=== PATIENT | female | born 1965 | race Caucasian/White ===

== ENCOUNTER 2020-08-22 09:29 | Emergency (ER) | payer OTHER, SELFPAY ==
--- NOTE | ~2020-08-22 | XR_ITS ---
EXAMINATION: XR HAND, RIGHT CLINICAL INFORMATION: Right hand injury. COMPARISON: None TECHNIQUE: PA, lateral, and oblique views of the right hand. FINDINGS: There is a comminuted fracture proximal phalanx mid segment fifth digit with mild soft tissue swelling. No additional fracture seen. Rest of the visualized right hand and right wrist appears unremarkable. XR/XR hand RT min 3V IMPRESSION: Comminuted fracture proximal phalanx mid segment fifth digit with mild soft tissue swelling. The fracture does not extend to articular epiphysis.
[2020-08-22 09:40] VITALS: BP 151/92; PULSE 82; RESP 18; TEMP 36.2; O2SAT 98; BMI 40.2
--- NOTE | 2020-08-22 09:58 | ED.EXTPRO ---
HPI - Extremity Problem General Chief complaint: Extremity Injury, Upper Stated complaint: FINGER INJURY Time Seen by Provider: 08/22/20 09:58 Source: patient Limitations: no limitations History of Present Illness HPI Narrative: Patient presents to the ER complaining of right 5th finger pain after a fall last night. Patient believes he may have been dislocated and she put it back in at that time. Positive bruising since. Pain is 8/10. Increases with palpation or range of motion. Symptoms are moderate. No other complaints at this time. Patient states she was walking down her back steps whenever slipped and she fell injuring that right left finger. Patient denies any other complaints of pain or injuries. Related Data Home Medications Medication Instructions Recorded Confirmed flu vac qs 2019(4 yr up)CD(PF) ml IM 04/09/20 04/09/20 sennosides 8.6 mg-docusate sodium tab PO 04/09/20 04/09/20 50 mg tablet Previous Rx's Medication Instructions Recorded aspirin 81 mg tablet,delayed 81 mg PO DAILY 90 Days #90 tab 02/19/20 release meclizine 25 mg tablet 25 mg PO TID PRN #60 tab 06/10/20 famotidine 20 mg tablet 20 mg PO DAILY #30 tab 06/17/20 albuterol sulfate 90 mcg/actuation 1 puff INHALATION QID PRN 30 Days 07/03/20 aerosol inhaler #18 g atorvastatin 80 mg tablet 80 mg PO DAILY 90 Days #90 tab 08/08/20 losartan 100 mg tablet 100 mg PO DAILY 90 Days #90 tab 08/08/20 trazodone 100 mg tablet 200 mg PO ONCE 90 Days #180 tab 08/08/20 tramadol 50 mg PO BID PRN #10 tab 08/22/20 Allergies Allergy/AdvReac Type Severity Reaction Status Date / Time bee pollen [BEE STINGS] Allergy Severe ANAPHYLAXIS Verified 08/22/20 09:43 spider venom [SPIDER BITES] Allergy Mild SWELLING Verified 08/22/20 09:43 acetaminophen [Vicodin] Allergy Unknown nausea and Verified 08/22/20 09:43 vomiting hydrocodone [Vicodin] Allergy Unknown nausea and Verified 08/22/20 09:43 vomiting Review of Systems Review of Systems: Constitutional : No Weight loss, No Fever, No Chills Cardiovascular : No Chest Pain, No SOB Respiratory : No Cough, No Sputum Gastrointestinal : No Nausea, No Vomiting Musculoskeletal : Right 5th finger pain Neuro : No Weakness, No Numbness, No Paresthesias, No Loss of Consciousness, No Dizziness, No Headache Psych : No Anxiety/Panic, No Depression, No SI/HI/AH/VH, No Social Issues, Heme/Lymph: No Bruising, No Bleeding,No Lymphadenopathy Endocrine : No Polyuria, No Polydipsia, No Temperature Intolerance [facility] Past Medical History Attestation statement: The following information was validated with the patient. Medical History Anxiety, generalized Asthma, moderate Chronic GERD Chronic vertigo Constipation by delayed colonic transit Difficulty sleeping Environmental allergies Hypertension, essential Lipid disorder Surgical History History of left oophorectomy History of shoulder surgery History of tooth extraction Family History Family History Father Myocardial infarction Mother CHF (congestive heart failure) History of back surgery Brother Acute myocardial infarction Sister Acute myocardial infarction Maternal Grandfather Colon cancer Maternal Grandmother Cancer Paternal Grandmother History of heart attack Cervical cancer Paternal Grandfather No problems noted. Maternal Uncle History of heart attack Sister No problems noted. Brother No problems noted. Brother No problems noted. Brother No problems noted. Social History Social History Alcohol intake: current Alcohol intake frequency: holidays/special occasions only Smoking Status: Former smoker Advance Directives: Yes Advance Directives Information Provided: Yes Advance Directives on File: No Patient : No Physical Exam Vital Signs: Vital Signs: Last Vital Signs Temp 97.1 F 08/22/20 09:40 Pulse 82 08/22/20 09:40 Resp 18 08/22/20 09:40 BP 151/92 H 08/22/20 09:40 Pulse Ox 98 08/22/20 09:40 Body Mass Index 40.2 vital signs have been reviewed as normal and appeared to be correct. Blood pressure normal. Heart rate normal. Respiration rate normal. Temperature normal. Oxygen saturation normal. Appearance: Alert. Oriented X3. No acute distress. Head: Normal external exam. Normocephalic. Atraumatic. No Rankin signs noted. No raccoon eyes noted Eyes: PERRLA. EOMI. ENT: Pharynx normal. Neck: Soft full range of motion, no JVD CVS: Heart regular rate and rhythm no murmurs and rubs Respiratory: Breath sounds are clear to auscultation bilaterally. No accessory muscle use noted. Back: No CVA tenderness. Full range of motion noted. Skin: Skin warm and dry. Normal skin color. Normal skin turgor. No rashes/lesions/lacerations noted. Extremities: Right hand base of the 5th positive ecchymoses positive swelling noted decreased range of motion secondary to pain diffuse tenderness capillary refill intact Neuro: Oriented X 3. No motor deficit. No sensory deficit. Reflexes normal. Course Course Course Narrative: X-ray of the right hand fracture dislocation of the right 5th finger. Splint applied to the right 5th digit follow-up with Hand as needed. MDM - Extremity (Nontraumatic) Imaging Data hand: Radiologist's impression: [address] [id number] ReportSigned Patient: Majo CheathamMR#: [id number]: 1965Acct:[id number]/Sex: 55 / FADM Date: 08/22/20Loc: HO.EDAttending Dr: Ordering Physician: Madyson Lake DO Date of Service: 08/22/20 Procedure(s): XR hand RT min 3V Accession Number(s): [id number] cc: Madyson Lake DO~ EXAMINATION: XR HAND, RIGHT CLINICAL INFORMATION: Right hand injury. COMPARISON: None TECHNIQUE: PA, lateral, and oblique views of the right hand. FINDINGS: There is a comminuted fracture proximal phalanx mid segment fifth digit with mild soft tissue swelling. No additional fracture seen. Rest of the visualized right hand and right wrist appears unremarkable. XR/XR hand RT min 3V IMPRESSION: Comminuted fracture proximal phalanx mid segment fifth digit with mild soft tissue swelling. The fracture does not extend to articular epiphysis. Dictated By:GEORGES CERVANTES MDSigned By:<Electronically signed by GEORGES CERVANTES MD in OV>08/22/20 1010 DD/ [id number]/TT: [employer] Assistant: [facility] [place] Discharge Plan Discharge Clinical Impression: Fracture of hand Patient Disposition: Home, Self-Care Instructions: Finger Fracture (ED) Additional Instructions: Splint rest ice elevation Follow-up with hand Prescriptions: New tramadol 50 mg tablet 50 mg PO BID PRN (Reason: pain (scale score 7-10)) Qty: 10 RF: 0 No Action aspirin 81 mg tablet,delayed release (DR/EC) 81 mg PO DAILY 90 Days Qty: 90 RF: 3 meclizine 25 mg tablet 25 mg PO TID PRN (Reason: dizziness) Qty: 60 RF: 0 famotidine 20 mg tablet 20 mg PO DAILY Qty: 30 RF: 2 albuterol sulfate 90 mcg/actuation HFA aerosol inhaler 1 puff inhalation QID PRN (Reason: for wheezing) 30 Days Qty: 18 RF: 0 losartan 100 mg tablet 100 mg PO DAILY 90 Days Qty: 90 RF: 0 atorvastatin 80 mg tablet 80 mg PO DAILY 90 Days Qty: 90 RF: 0 trazodone 100 mg tablet 200 mg PO ONCE 90 Days Qty: 180 RF: 1 sennosides-docusate sodium 8.6-50 mg tablet PO RF: 0 Flucelvax Quad [id number] (PF) 60 mcg (15 mcg x 4)/0.5 mL syringe IM RF: 0 Referrals: Leticia Braun MD [Physician] - 2 days
== END 2020-08-22 10:40 | disposition home or self-care (01) ==
PROVIDERS: Emergency Provider Emergency Medicine; PCP Internal Medicine
DX: S62.616A Displaced fracture of proximal phalanx of right little finger, initial encounter for closed fracture (principal); M79.641 Pain in right hand; W01.0XXA Fall on same level from slipping, tripping and stumbling without subsequent striking against object, initial encounter; Y93.9 Activity, unspecified; Y92.9 Unspecified place or not applicable; Y99.9 Unspecified external cause status; Z79.899 Other long term (current) drug therapy; Z79.82 Long term (current) use of aspirin; Z87.891 Personal history of nicotine dependence
CPT/HCPCS: 29130; 73130; 99283

== ENCOUNTER → 2020-08-26 14:06 | Outpatient (BNVA) | payer OTHER, SELFPAY | PROVIDERS: PCP Internal Medicine; Visit Provider Orthopaedic Surgery | DX: S62.616A Displaced fracture of proximal phalanx of right little finger, initial encounter for closed fracture (principal) | CPT/HCPCS: 99202 ==

== ENCOUNTER → 2020-08-28 09:45 | Outpatient (BNVA) | payer OTHER, SELFPAY | PROVIDERS: PCP Internal Medicine; Referring Provider Internal Medicine; Visit Provider Internal Medicine Cardiovascular Disease | DX: Z01.810 Encounter for preprocedural cardiovascular examination (principal); I25.10 Atherosclerotic heart disease of native coronary artery without angina pectoris; I10 Essential (primary) hypertension; R94.31 Abnormal electrocardiogram [ECG] [EKG] | CPT/HCPCS: 93005; 99202 ==

== ENCOUNTER 2020-08-29 06:02 | Day surgery (SDC) | payer OTHER, SELFPAY ==
--- NOTE | 2020-08-28 14:26 | HO.ANESPROP2 ---
Documented by User: Lexi Ferreira 08/28/20 14:27 HPI - Anesthesia Eval Consult details Narrative: 55yo F for RIght Finger Fx ORIF vs CRPP, small finger Cardiac cleared @ low to intermed risk PMFSH Active Problems Active Problems: All Active Problems (Updated 08/28/20 @ 10:41 by Ian Sr MD) Abnormal EKG (Acute) CAD (coronary artery disease) (Acute) Preoperative cardiovascular examination (Acute) Fracture of proximal phalanx of right little finger (Acute) Breast screening (Acute) Encounter for general adult medical examination with abnormal findings (Acute) Environmental allergies (Acute) Anxiety, generalized (Acute) Chronic GERD (Acute) Asthma, moderate (Acute) Constipation by delayed colonic transit (Acute) Lipid disorder (Acute) Chronic vertigo (Acute) Hypertension, essential (Acute) Difficulty sleeping (Acute) Environmental allergies (Acute) Past Medical History Medical History Anxiety, generalized Asthma, moderate CAD (coronary artery disease) Chronic GERD Chronic vertigo Constipation by delayed colonic transit Difficulty sleeping Environmental allergies Hypertension, essential Lipid disorder Family History Family History Father Myocardial infarction Mother CHF (congestive heart failure) History of back surgery Brother Acute myocardial infarction Sister Acute myocardial infarction Maternal Grandfather Colon cancer Maternal Grandmother Cancer Paternal Grandmother History of heart attack Cervical cancer Paternal Grandfather No problems noted. Maternal Uncle History of heart attack Sister No problems noted. Brother No problems noted. Brother No problems noted. Brother No problems noted. Surgical History Surgical History History of left oophorectomy History of shoulder surgery History of tooth extraction Stented coronary artery Social History Social History Alcohol intake: current Alcohol intake frequency: a few times a week Smoking Status: Former smoker Use of substances other than those prescribed or required for medical reasons: No Are you DNR?: No Advance Directives: No Advance Directives Information Provided: Yes Current occupation: left handed Gender identity: female Meds Allergies Allergy/AdvReac Type Severity Reaction Status Date / Time bee pollen [BEE STINGS] Allergy Severe ANAPHYLAXIS Verified 08/26/20 14:38 spider venom [SPIDER BITES] Allergy Mild SWELLING Verified 08/26/20 14:38 acetaminophen [Vicodin] Allergy Unknown nausea and Verified 08/26/20 14:38 vomiting hydrocodone [Vicodin] Allergy Unknown nausea and Verified 08/26/20 14:38 vomiting Home Medications Medication Instructions Recorded Confirmed Last Taken Type nifedipine 30 mg tablet,extended 30 mg PO DAILY 08/28/20 Unknown History release 24 hr venlafaxine 37.5 mg 37.5 mg PO DAILY 08/28/20 Unknown History capsule,extended release 24 hr Exam Exam Date and Time: August 28, 20201425 Narrative Narrative: EKG 08/28/20 shows normal sinus rhythm with left axis deviation with inferior Q-waves which could suggest prior inferior infarct and poor R-wave progression most likely due to lead placement Assessment and Plan Assessment Anesthesia Assessment: Chart Reviewed Documented by User: Katie Doty 08/29/20 08:21 [facility] Past Medical History Medical History Anxiety, generalized Asthma, moderate CAD (coronary artery disease) Chronic GERD Chronic vertigo Constipation by delayed colonic transit Difficulty sleeping Environmental allergies Hypertension, essential Lipid disorder Family History Family History Father Myocardial infarction Mother CHF (congestive heart failure) History of back surgery Brother Acute myocardial infarction Sister Acute myocardial infarction Maternal Grandfather Colon cancer Maternal Grandmother Cancer Paternal Grandmother History of heart attack Cervical cancer Paternal Grandfather No problems noted. Maternal Uncle History of heart attack Sister No problems noted. Brother No problems noted. Brother No problems noted. Brother No problems noted. Surgical History Surgical History History of left oophorectomy History of shoulder surgery History of tooth extraction Stented coronary artery Social History Social History Alcohol intake: current Alcohol intake frequency: a few times a week Smoking Status: Former smoker Use of substances other than those prescribed or required for medical reasons: No Are you DNR?: No Advance Directives: No Advance Directives Information Provided: Yes Current occupation: left handed Gender identity: female Meds Allergies Allergy/AdvReac Type Severity Reaction Status Date / Time bee pollen [BEE STINGS] Allergy Severe ANAPHYLAXIS Verified 08/26/20 14:38 spider venom [SPIDER BITES] Allergy Mild SWELLING Verified 08/26/20 14:38 acetaminophen [Vicodin] Allergy Unknown nausea and Verified 08/26/20 14:38 vomiting hydrocodone [Vicodin] Allergy Unknown nausea and Verified 08/26/20 14:38 vomiting Home Medications Medication Instructions Recorded Confirmed Last Taken Type nifedipine 30 mg tablet,extended 30 mg PO DAILY 08/28/20 Unknown History release 24 hr venlafaxine 37.5 mg 37.5 mg PO DAILY 08/28/20 Unknown History capsule,extended release 24 hr Exam Airway Mallampati Class: III TM Dist: >3cm Neck ROM: Limited Denture: Upper and Lower Assessment and Plan Assessment Anesthesia Assessment: Anesthesia Plan Discussed and Chart Reviewed Final Anesthetic Review NPO: Yes ASA Class: III Final Preanesthetic Review: No Changes in Pt Med Stat, Meds/Allgs Chart Reviewed, Consent Obtained/Reviewed and Anes Risks/Benef Reviewed Patient Risk: Intermediate Procedure Risk: Low Assessment/Block/Sedation in SS: Assess/Block/Sedation-SS Anesthetic Plan Anesthetic Plan: GA Disposition: Standard PACU
--- NOTE | ~2020-08-29 | FL_ITS ---
EXAMINATION: XR FLUOROSCOPY WITH IMAGES CLINICAL INFORMATION: Right fifth finger fracture COMPARISON: Previous right hand x-ray 08/22/2020 TECHNIQUE: Fluoroscopy performed by Edy. Fluoroscopy time: 0.5 minutes DAP: [id number] Images: 4 FINDINGS: Images demonstrate 2 K wires transfixing the fracture of the proximal phalanx of the fifth finger with improved alignment FL/FL guidance in OR IMPRESSION: ORIF of right fifth finger proximal phalanx fracture.
[2020-08-29 06:18] VITALS: BP 186/81; PULSE 62; RESP 18; TEMP 36.2; O2SAT 96; BMI 42.4
[2020-08-29] MEDS: Lactated Ringers 1,000 ML 100 ML IVCONT (06:33)
--- NOTE | 2020-08-29 08:05 | MHC.SHP ---
Pre-Procedural Eval Section A The patient is an INPATIENT: No The History & Physical has been completed within 30 days and I have reviewed it.: Yes Section B Chief Complaint: small finger fx Allergies: Allergies Allergy/AdvReac Type Severity Reaction Status Date / Time bee pollen [BEE STINGS] Allergy Severe ANAPHYLAXIS Verified 08/26/20 14:38 spider venom [SPIDER BITES] Allergy Mild SWELLING Verified 08/26/20 14:38 acetaminophen [Vicodin] Allergy Unknown nausea and Verified 08/26/20 14:38 vomiting hydrocodone [Vicodin] Allergy Unknown nausea and Verified 08/26/20 14:38 vomiting Plan I have reviewed the history and physical and performed a pertinent physical examination on my patient. No changes have occurred unless specified.
--- NOTE | 2020-08-29 08:06 | W.PM.OPN ---
Operative Note Operative Note Date of Service: 08/29/20 Narrative: Operative Note Narrative: Preop diagnosis: 1. Right small finger proximal phalanx fracture Postop diagnosis: Same Procedure: 1. Right small finger proximal phalanx fracture closed reduction percutaneous pinning 2. Ulnar nerve block Surgeon: Leticia Braun MD Anesthesia: General Findings: finger fracture Implants: 0.045 K-wires times 2 Tourniquet time: None EBL: Minimal Specimen: None Drains: None Complications: None Disposition: Brought to the recovery room in stable condition Plan: Follow-up in 10-14 days for a wound check, postop radiographs and for placement in a short-arm finger spica cast or splint Anticipate K-wire removal in 4 weeks based on interval bony healing Educate the patient that full fracture healing anticipated in approximately 8-12 weeks. Indications: The patient is 55 years old with right small finger proximal phalanx fracture . The risks and benefits of operative treatment, including but not limited to risk of damage to blood vessels, nerves, tendons, infection, recurrence, delayed or nonunion of fracture, persistent pain or numbness, incomplete resolution of preoperative symptoms, or need for further surgery were discussed with the patient and they wished to proceed with surgery. Procedure: Once consent was obtained patient was brought back to the operating suite and placed in the operating table in a supine position. Perioperative antibiotics and general anesthesia was administered by the anesthesia team. A tourniquet was applied to the proximal aspect of the right upper extremity and the limb was prepped and draped in a standard surgical fashion. Tourniquet was not inflated during the case. The FluoroScan was used during the case to assist with our fracture reduction and placement of all implants. A closed reduction was performed on the patient's right small finger proximal phalanx fracture. I placed a single 0.045 K-wire through the radial base of the proximal phalanx. This was then advanced cyst distally across the fracture site to the distal ulnar cortex. A 2nd 0.045 K-wire was passed through the ulnar base of the proximal phalanx and was also advanced distally across the fracture site to the distal aspect of the proximal phalanx. Fracture alignment was assessed for both angular and rotational malalignment. Once satisfied with our fracture reduction and implant placement, the K-wires were bent and cut short and pin caps applied. Final fluoroscopic images were then obtained. The wounds were copiously irrigated with normal saline. An ulnar nerve block was then performed by infiltrating about the ulnar nerve at the wrist with some 1% lidocaine with epinephrine for postop pain control. A Sterile dressing and short volar splint extending from the forearm was applied. The patient appears to have tolerated the procedure well and with no complications. All digits were well vascularized at the conclusion of the case.
[2020-08-29 09:03] VITALS: BP 158/70; PULSE 62; RESP 14; TEMP 36.2; O2SAT 94
[2020-08-29] MEDS: oxyCODONE HCl Immed Release 5 MG TABLET PO (09:05)
[2020-08-29 09:08] VITALS: BP 130/66; PULSE 64; RESP 16; O2SAT 96
[2020-08-29 09:13] VITALS: BP 149/74; PULSE 61; RESP 16; O2SAT 99
[2020-08-29 09:17] VITALS: BP 163/73; PULSE 58; RESP 16; O2SAT 97
[2020-08-29 09:32] VITALS: BP 143/71; PULSE 58; RESP 16; O2SAT 96
== END 2020-08-29 10:09 | disposition home or self-care (01) ==
PROVIDERS: PCP Internal Medicine; Visit Provider Orthopaedic Surgery
PROC: (CPT 26725; principal; 2020-08-29 07:30)
DX: S62.616A Displaced fracture of proximal phalanx of right little finger, initial encounter for closed fracture (principal); W10.8XXA Fall (on) (from) other stairs and steps, initial encounter; Y93.9 Activity, unspecified; Y92.009 Unspecified place in unspecified non-institutional (private) residence as the place of occurrence of the external cause; Y99.8 Other external cause status; I10 Essential (primary) hypertension; J45.909 Unspecified asthma, uncomplicated; R42 Dizziness and giddiness; Z88.8 Allergy status to other drugs, medicaments and biological substances; Z79.82 Long term (current) use of aspirin
CPT/HCPCS: 26725; J0690; J1100; J2405; J3010

== ENCOUNTER 2020-09-10 08:47 | Outpatient (REF) | payer OTHER, SELFPAY ==
--- NOTE | ~2020-09-10 | XR_ITS ---
EXAMINATION: XR HAND, RIGHT CLINICAL INFORMATION: Pain. COMPARISON: Right hand radiographs dated 08/22/2020. TECHNIQUE: PA, lateral, and oblique views of the right hand. FINDINGS: Orthopedic wires across a 5th proximal phalangeal fracture in anatomic alignment. No hardware fracture. No periarticular lucency to suggest loosening or infection. Minimal new bone/callus formation at the fracture. XR/XR hand RT min 3V IMPRESSION: Orthopedic wires across a nondisplaced 5th proximal phalangeal fracture in anatomic alignment with minimal new bone/callus formation.
== END 2020-09-10 08:48 | disposition home or self-care (01) ==
LOC: HO.HOSX 08:47
PROVIDERS: Visit Provider Orthopaedic Surgery
DX: S62.616D Displaced fracture of proximal phalanx of right little finger, subsequent encounter for fracture with routine healing (principal)
CPT/HCPCS: 29075; 73130; 99212

== ENCOUNTER 2020-09-11 09:54 | Outpatient (REF) | payer OTHER, SELFPAY ==
[2020-09-11 11:22] LABS: MANUAL DIFF FLAG NO
[2020-09-11 11:34] LABS: Basophils Percent Auto 0.3 % (0-2); Eosinophils Absolute Auto 0.1 X10*3/uL (0.0-0.4); Eosinophils Percent Auto 0.9 % (0-4); Hematocrit 40.2 % (37-47); Hemoglobin 13.1 g/dl (12.0-16.0); Imm Gran Abs Auto 0.07 X10*3/uL (0.00-0.03); Imm Gran Pct Auto 0.6 % (0.0-0.4); Lymphocytes Absolute Auto 1.6 X10*3/uL (1.2-4.9); Lymphocytes Percent Auto 13.4 % (20-40); Mean Corpuscular HGB Conc 32.6 g/dl (31.0-35.0); Mean Corpuscular Hemoglobin 29.4 pg (27.0-33.0); Mean Corpuscular Volume 90.1 fL (80-98); Mean Platelet Volume 10.2 fL (9.4-12.3); Monocytes Absolute Auto 0.9 X10*3/uL (0.1-1.2); Neutrophils Percent Auto 76.8 % (45-73); Platelet Count 287 X10*3/uL (160-400); Red Blood Count 4.46 X10*6/uL (4.20-5.50); Red Cell Distribution Width 15.1 % (11.0-16.0); White Blood Count 11.7 X10*3/uL (4.8-10.8)
[2020-09-11 11:53] LABS: Alanine Aminotransferase 25 U/L (0-31); Albumin Level 4.2 g/dL (3.5-5.0); Alkaline Phosphatase 135 U/L (39-117); Anion Gap 16 (12-20); Aspartate Amino Transferase 17 U/L (5-31); Bilirubin Direct 0.5 mg/dL (0.0-0.5); Bilirubin Total 1.1 mg/dL (0.0-1.0); Blood Urea Nitrogen 15 mg/dL (9-16); Calcium 9.2 mg/dL (8.4-10.2); Carbon Dioxide 24 mmol/L (22-29); Chloride 104 mmol/L (96-108); Estimated Glomerular Filt Rate > 60; Glucose Random 95 mg/dL (60-115); Potassium 4.1 mmol/L (3.3-5.1); Sodium 140 mmol/L (135-145)
[2020-09-12 04:27] LABS: LDL Cholesterol Direct 55 mg/dL (<100)
== END 2020-09-11 09:55 | disposition home or self-care (01) ==
LOC: HO.HMGCLDS 09:54
PROVIDERS: PCP Internal Medicine; Visit Provider Internal Medicine
DX: E78.9 Disorder of lipoprotein metabolism, unspecified (principal); F41.1 Generalized anxiety disorder; I10 Essential (primary) hypertension; J45.909 Unspecified asthma, uncomplicated; K21.9 Gastro-esophageal reflux disease without esophagitis; Z91.09 Other allergy status, other than to drugs and biological substances
CPT/HCPCS: 36415; 80048; 80076; 83721; 85025

== ENCOUNTER 2020-09-30 10:12 | Outpatient (REF) | payer OTHER, SELFPAY ==
--- NOTE | ~2020-09-30 | XR_ITS ---
EXAMINATION: XR HAND, RIGHT CLINICAL INFORMATION: Pain COMPARISON: Previous x-ray 09/10/2020 TECHNIQUE: PA, lateral, and oblique views of the right hand. FINDINGS: There are 2 pins or K wires across the fracture of the proximal phalanx of the fifth finger that appear unchanged. Alignment is unchanged. Fracture line is still seen and appears unchanged. XR/XR hand RT min 3V IMPRESSION: ORIF of right fifth proximal phalanx fracture. No change compared to August 2020 exam.
== END 2020-09-30 10:13 | disposition home or self-care (01) ==
LOC: HO.HOSX 10:12
PROVIDERS: Visit Provider Orthopaedic Surgery
DX: S62.616D Displaced fracture of proximal phalanx of right little finger, subsequent encounter for fracture with routine healing (principal); M79.641 Pain in right hand
CPT/HCPCS: 73130; 99212

== ENCOUNTER → 2020-10-28 13:39 | Outpatient (BNVA) | payer OTHER, SELFPAY | PROVIDERS: PCP Internal Medicine; Visit Provider Orthopaedic Surgery | DX: S62.616D Displaced fracture of proximal phalanx of right little finger, subsequent encounter for fracture with routine healing (principal) | CPT/HCPCS: 99212 ==

== ENCOUNTER 2021-03-05 09:15 | Outpatient (REF) | payer OTHER, SELFPAY ==
[2021-03-05 11:24] LABS: MANUAL DIFF FLAG NO
[2021-03-05 11:39] LABS: Basophils Percent Auto 0.4 % (0-2); Eosinophils Absolute Auto 0.2 X10*3/uL (0.0-0.4); Eosinophils Percent Auto 2.2 % (0-4); Hematocrit 41.5 % (37.0-47.0); Hemoglobin 13.6 g/dl (12.0-16.0); Imm Gran Abs Auto 0.03 X10*3/uL (0.00-0.03); Imm Gran Pct Auto 0.4 % (0.0-0.4); Lymphocytes Absolute Auto 1.7 X10*3/uL (1.2-4.9); Lymphocytes Percent Auto 23.3 % (20-40); Mean Corpuscular HGB Conc 32.8 g/dl (31.0-35.0); Mean Corpuscular Hemoglobin 28.4 pg (27.0-33.0); Mean Corpuscular Volume 86.6 fL (80.0-98.0); Monocytes Absolute Auto 0.5 X10*3/uL (0.1-1.2); Monocytes Percent Auto 6.7 % (2-11); Neutrophils Absolute Auto 4.9 x10*3/uL (2.0-8.3); Platelet Count 301 X10*3/uL (160-400); Red Blood Count 4.79 X10*6/uL (4.20-5.50); Red Cell Distribution Width 15.6 % (11.0-16.0); White Blood Count 7.4 X10*3/uL (4.8-10.8)
[2021-03-05 12:10] LABS: Alanine Aminotransferase 25 U/L (0-31); Albumin Level 4.3 g/dL (3.5-5.0); Alkaline Phosphatase 122 U/L (39-117); Anion Gap 14 (12-20); Aspartate Amino Transferase 21 U/L (5-31); Bilirubin Total 0.7 mg/dL (0.0-1.0); Blood Urea Nitrogen 11 mg/dL (9-16); Calcium 9.3 mg/dL (8.4-10.2); Carbon Dioxide 26 mmol/L (22-29); Chloride 102 mmol/L (96-108); Estimated Glomerular Filt Rate > 60; Glucose Random 86 mg/dL (60-115); Potassium 3.9 mmol/L (3.3-5.1); Sodium 138 mmol/L (135-145); Total Protein 7.1 g/dL (6.5-8.0)
[2021-03-05 12:15] LABS: TSH reflex Free T4 1.71 uIU/mL (0.32-4.0)
[2021-03-07 13:31] LABS: LDL Cholesterol Direct 63 mg/dL (<100)
== END 2021-03-05 09:16 | disposition home or self-care (01) ==
LOC: HO.HMGCLDS 09:15
PROVIDERS: PCP Internal Medicine; Visit Provider Internal Medicine
DX: I10 Essential (primary) hypertension (principal)
CPT/HCPCS: 36415; 80053; 83721; 84443; 85025

== ENCOUNTER 2022-05-27 11:36 | Outpatient (REF) | payer OTHER, SELFPAY ==
[2022-05-27 13:55] LABS: MANUAL DIFF FLAG NO
[2022-05-27 14:02] LABS: Basophils Absolute Auto 0.1 X10*3/uL (0.0-0.2); Basophils Percent Auto 0.5 % (0-2); Eosinophils Absolute Auto 0.1 X10*3/uL (0.0-0.4); Eosinophils Percent Auto 1.1 % (0-4); Hematocrit 46.3 % (37.0-47.0); Hemoglobin 15.6 g/dl (12.0-16.0); Imm Gran Abs Auto 0.07 X10*3/uL (0.00-0.03); Imm Gran Pct Auto 0.8 % (0.0-0.4); Lymphocytes Absolute Auto 1.5 X10*3/uL (1.2-4.9); Lymphocytes Percent Auto 16.3 % (20-40); Mean Corpuscular HGB Conc 33.7 g/dl (31.0-35.0); Mean Corpuscular Hemoglobin 30.2 pg (27.0-33.0); Mean Corpuscular Volume 89.7 fL (80.0-98.0); Mean Platelet Volume 10.2 fL (9.4-12.3); Monocytes Absolute Auto 0.8 X10*3/uL (0.1-1.2); Monocytes Percent Auto 8.1 % (2-11); Neutrophils Absolute Auto 6.8 x10*3/uL (2.0-8.3); Neutrophils Percent Auto 73.2 % (45-73); Platelet Count 245 X10*3/uL (160-400); Red Blood Count 5.16 X10*6/uL (4.20-5.50); Red Cell Distribution Width 14.5 % (11.0-16.0); White Blood Count 9.3 X10*3/uL (4.8-10.8)
[2022-05-27 14:40] LABS: Alanine Aminotransferase 38 U/L (0-31); Albumin Level 4.3 g/dL (3.5-5.0); Alkaline Phosphatase 106 U/L (39-117); Anion Gap 15 (12-20); Aspartate Amino Transferase 23 U/L (5-31); Bilirubin Total 0.8 mg/dL (0.0-1.0); Blood Urea Nitrogen 12 mg/dL (9-16); Calcium 9.6 mg/dL (8.4-10.2); Carbon Dioxide 27 mmol/L (22-29); Chloride 105 mmol/L (96-108); Estimated Glomerular Filt Rate > 60; Glucose Random 92 mg/dL (60-115); Potassium 3.8 mmol/L (3.3-5.1); Sodium 143 mmol/L (135-145); Total Protein 7.1 g/dL (6.5-8.0)
[2022-05-28 05:53] LABS: LDL Cholesterol Direct 121 mg/dL (<100)
== END 2022-05-27 11:37 | disposition home or self-care (01) ==
LOC: HO.HMGCLDS 11:36
PROVIDERS: PCP Internal Medicine; Visit Provider Internal Medicine
DX: E78.9 Disorder of lipoprotein metabolism, unspecified (principal); G47.9 Sleep disorder, unspecified; I10 Essential (primary) hypertension; J45.909 Unspecified asthma, uncomplicated; K21.9 Gastro-esophageal reflux disease without esophagitis; Z91.09 Other allergy status, other than to drugs and biological substances
CPT/HCPCS: 36415; 80053; 83721; 84443; 85025

== ENCOUNTER 2022-07-16 09:17 | Emergency (ER) | payer OTHER, SELFPAY ==
[2022-07-16 09:30] VITALS: BP 187/80; PULSE 73; RESP 17; TEMP 35.8; O2SAT 98; BMI 34.7
--- NOTE | 2022-07-16 09:38 | ED_ITS ---
HPI - Extremity Problem General Chief complaint: Extremity Injury, Lower Stated complaint: toe injury Time Seen by Provider: 07/16/22 09:37 Source: patient Mode of arrival: ambulatory Limitations: no limitations History of Present Illness HPI Narrative: 57-year-old female with history of uncontrolled hypertension, CAD, anxiety, GERD, vertigo who presents to the ER for evaluation of left great toe pain, swelling and drainage of pus. She reports about 2 weeks ago she accidentally injured the toe, kicking a piece of furniture. She states that toenail bruised up at the base of the toe. Few days ago she noticed that the area started to get more red and swollen. When she pushed on it green pus came out. She denies any expansion of the redness. No fevers or chills. She is not diabetic. MD Complaint: extremity pain Onset (ago): day(s) Pain Consistency: constant Location: left and lower extremity Severity scale (1-10): 7 Quality: aching Radiation: none Relieving factors: movement Exacerbating factors: palpation Associated symptoms: denies other symptoms Related Data Previous Rx's Medication Instructions Recorded albuterol sulfate 90 mcg/actuation 1 puff inhalation QID PRN for 11/12/21 aerosol inhaler wheezing 30 days #18 grams epinephrine 0.3 mg/0.3 mL 0.3 mg (0.3 mL) IM Q10M PRN 12/23/21 injection, auto-injector (EpiPen anaphylaxis 90 days #2 ea 2-Keith) Ventolin HFA 90 mcg/actuation 1 inh inhalation QID PRN shortness 02/02/22 aerosol inhaler (albuterol sulfate) of breath or wheezing 30 days #8 grams atorvastatin 80 mg tablet 80 mg PO DAILY 90 days #90 tabs 06/01/22 famotidine 20 mg tablet 20 mg PO DAILY #90 tabs 06/01/22 losartan 100 mg tablet 100 mg PO DAILY 90 days #90 tabs 06/01/22 nifedipine 30 mg tablet,extended 30 mg PO DAILY 90 days #90 tabs 06/01/22 release 24 hr sennosides 8.6 mg-docusate sodium 1 tab-cap PO BEDTIME 90 days #90 06/01/22 50 mg tablet tabs trazodone 100 mg tablet 200 mg PO ONCE 90 days #180 tabs 06/01/22 venlafaxine 37.5 mg 37.5 mg PO DAILY 90 days #90 caps 06/01/22 capsule,extended release 24 hr aspirin 81 mg tablet,delayed 81 mg PO DAILY 90 days #90 tabs 06/16/22 release budesonide-formoterol HFA 160 2 puff inhalation BID 30 days 06/26/22 mcg-4.5 mcg/actuation aerosol #10.2 grams inhaler (Symbicort) meclizine 25 mg tablet 25 mg PO TID PRN dizziness #60 tabs 07/14/22 amoxicillin 875 mg-potassium 1 tab PO BID #14 tabs 07/16/22 clavulanate 125 mg tablet Allergies Allergy/AdvReac Type Severity Reaction Status Date / Time bee pollen [BEE STINGS] Allergy Severe ANAPHYLAXIS Verified 05/27/22 10:57 spider venom [SPIDER BITES] Allergy Mild SWELLING Verified 05/27/22 10:57 acetaminophen [Vicodin] Allergy Unknown nausea and Verified 05/27/22 10:57 vomiting hydrocodone [Vicodin] Allergy Unknown nausea and Verified 05/27/22 10:57 vomiting Review of Systems Review of Systems: Yes all other systems are reviewed and are negative [facility] Past Medical History Medical History Anxiety, generalized Asthma, moderate CAD (coronary artery disease) Chronic GERD Chronic vertigo Constipation by delayed colonic transit Difficulty sleeping Environmental allergies Hypertension, essential Lipid disorder Surgical History History of left oophorectomy History of shoulder surgery History of tooth extraction Stented coronary artery Family History Family History Father Myocardial infarction Mother CHF (congestive heart failure) History of back surgery Brother Acute myocardial infarction Sister Acute myocardial infarction Maternal Grandfather Colon cancer Maternal Grandmother Cancer Paternal Grandmother History of heart attack Cervical cancer Paternal Grandfather No problems noted. Maternal Uncle History of heart attack Sister No problems noted. Brother No problems noted. Brother No problems noted. Brother No problems noted. Social History Social History Housing: Apartment Alcohol intake: current Alcohol intake frequency: a few times a week Patient Tobacco Use Status: Former Tobacco user Quit Date: 16 years ago Advance Directives: No Current occupational status: employed Current occupation: left handed Gender identity: Female Cognitive needs: No Hearing needs: No Vision needs: No Physical Exam Vital Signs: Vital Signs: Last Vital Signs Temp 96.5 F L 07/16/22 09:30 Pulse 73 07/16/22 09:30 Resp 17 07/16/22 09:30 BP 174/86 H 07/16/22 10:15 Pulse Ox 98 07/16/22 09:30 O2 Del Method Room Air 07/16/22 09:30 BMI result Body Mass Index 34.7 Appearance: Alert. Oriented X3. No acute distress. HEENT: normal inspection CVS: Normal heart rate and rhythm. Pulses normal. Respiratory: No respiratory distress. Skin: Skin warm and dry. Normal skin color. Normal skin turgor. No rashes. Extremities: left great toe nail with ecchymosis at the base, nail bed separation with expression of purulent material. normal cap refill. FROM. Neuro: Oriented X 3. No motor deficit. No sensory deficit. Course Reevaluation(s) Reevaluation #1: toe soaked in saline and H2O2, small amount of purulent material expressed DSD applied will d/c with abx Medical Decision Making Medical Decision Making MDM Narrative: 57-year-old female presents to the ER for evaluation of left great toe pain, redness, drainage of pus that started couple of days ago after mild trauma 2 weeks ago. On examination the nail is from the nail bed with expression of purulent material. The toe was soaked and cleansed copiously with saline. She will require oral antibiotics an ongoing local wound care. She will most likely lose the toenail. Patient counseled on return precautions. She is stable for discharge home with oral antibiotics. Patient found to be hypertensive 170-180 here. She has no headache, chest pain, vision changes. She has a history of uncontrolled hypertension. She reports medication compliance. She will monitor her blood pressure at home and follow- up with her PCP. Stable for discharge home Differential Diagnosis Differential Diagnoses: The differential diagnosis associated with the present ation includes paronychia, broken toe, cellulitis, abscess, ulcer External Record Review External record reviewed: Outpatient record and Prior outpatient labs Tests considered The following testing was considered but not selected: x-ray considered Prescription Management I considered prescription management with: Antibiotic Chronic Conditions Patient?s care impacted by: Hypertension Critical Care Time Critical Care Time Critical Care Time: No Discharge Plan Discharge Clinical Impression: Paronychia of great toe of left foot Patient Disposition: Home, Self-Care Instructions: Paronychia (ED) Additional Instructions: Take the prescribed antibiotic as directed, complete the entire course and do not miss any doses. Use warm soaks 2 or 3 times per day with soapy water. Keep clean and covered. You can use bacitracin or Neosporin to the area as well. Allow open to air for several hours per day. Your blood pressure was found to be elevated today. Monitor blood pressure at home and keep her recording for your doctor. Follow-up with your doctor. If you develop new or worsening symptoms call 911 or come back to the ER for further evaluation. Prescriptions: New amoxicillin-pot clavulanate 875-125 mg tablet 1 tab PO BID Qty: 14 0RF No Action albuterol sulfate 90 mcg/actuation HFA aerosol inhaler 1 puff inhalation QID PRN (Reason: for wheezing) 30 Days Qty: 18 2RF epinephrine [EpiPen 2-Keith] 0.3 mg/0.3 mL auto-injector 0.3 mg IM Q10M PRN (Reason: anaphylaxis) 90 Days Qty: 2 0RF Rx Instructions: for 2 doses albuterol sulfate [Ventolin HFA] 90 mcg/actuation HFA aerosol inhaler 1 inh inhalation QID PRN (Reason: shortness of breath or wheezing) 30 Days Qty: 8 2RF nifedipine 30 mg tablet extended release 24hr 30 mg PO DAILY 90 Days Qty: 90 0RF venlafaxine 37.5 mg capsule,extended release 24hr 37.5 mg PO DAILY 90 Days Qty: 90 0RF atorvastatin 80 mg tablet 80 mg PO DAILY 90 Days Qty: 90 0RF famotidine 20 mg tablet 20 mg PO DAILY Qty: 90 0RF sennosides-docusate sodium 8.6-50 mg tablet 1 tab-cap PO BEDTIME 90 Days Qty: 90 3RF trazodone 100 mg tablet 200 mg PO ONCE 90 Days Qty: 180 0RF losartan 100 mg tablet 100 mg PO DAILY 90 Days Qty: 90 0RF aspirin 81 mg tablet,delayed release (DR/EC) 81 mg PO DAILY 90 Days Qty: 90 3RF budesonide-formoterol [Symbicort] 160-4.5 mcg/actuation HFA aerosol inhaler 2 puff inhalation BID 30 Days Qty: 10.2 2RF meclizine 25 mg tablet 25 mg PO TID PRN (Reason: dizziness) Qty: 60 2RF Referrals: Dee Joseph MD [Primary Care Provider] - Stand Alone Forms: Work/School Release
[2022-07-16 10:15] VITALS: BP 174/86
== END 2022-07-16 10:54 | disposition home or self-care (01) ==
PROVIDERS: Emergency Provider Emergency Medicine; PCP Internal Medicine
DX: L03.032 Cellulitis of left toe (principal); Z79.899 Other long term (current) drug therapy
CPT/HCPCS: 10160; 99282; 99283

== ENCOUNTER 2023-02-12 12:55 | Outpatient (AMB) | payer OTHER, SELFPAY ==
--- NOTE | 2023-02-12 13:14 | A.OFFPC_ITS ---
Vital Signs 3 02/12/23 13:15 Height 5 ft 2 in Weight 198 lb BMI 36.2 BP 124/72 Blood Pressure Location Lt brachial Position Sitting Pulse 79 Pulse Source Pulse Oximeter Pulse Oximetry (%) 94 Oxygen Delivery Method Room Air Intake Visit Reasons: F/u Asthma, moderate Intake Note: Pt is here today for a follow up visit. Pt states that she has been having R shoulder pain since yesterday. Allergies bee pollen [BEE STINGS] Allergy (Severe, Verified 02/12/23 13:16) ANAPHYLAXIS spider venom [SPIDER BITES] Allergy (Mild, Verified 02/12/23 13:16) SWELLING acetaminophen [Vicodin] Allergy (Unknown, Verified 02/12/23 13:16) nausea and vomiting hydrocodone [Vicodin] Allergy (Unknown, Verified 02/12/23 13:16) nausea and vomiting Medication List - Last Reconciled 02/12/23 by Dee Joseph MD albuterol sulfate 90 mcg/actuation 1 puff inhalation QID PRN 30 days aspirin 81 mg PO DAILY 90 days atorvastatin 80 mg PO DAILY 90 days budesonide-formoterol 160-4.5 mcg/actuation (Symbicort) 2 puffs inhalation BID 30 days epinephrine (EpiPen 2-Keith) 0.3 mg (0.3 mL) IM Q10M PRN 90 days famotidine 20 mg PO DAILY losartan 100 mg PO DAILY 90 days meclizine 25 mg PO TID PRN nifedipine ER 30 mg PO DAILY 90 days sennosides-docusate sodium 8.6-50 mg 1 tab-cap PO BEDTIME 90 days trazodone 200 mg (2 x 100 mg) PO ONCE 90 days venlafaxine ER 37.5 mg PO DAILY 90 days Ventolin HFA 90 mcg/actuation (albuterol sulfate) 1 inh inhalation QID PRN 30 days NS Tobacco use date assessed: 02/12/23 Dental Screening Dental Screen Date: 02/12/23 Did you have a dental visit in the last 12 months?: No Did you have a dental problem in the last 6 months where you did not have access to dental care?: No Was dental information given to patient?: Patient declined HPI F/u Asthma, moderate 2 HPI0 Details Patient is a 57-year-old female came in today for follow-up appointment Patient has habit of missing her appointments Last time seen was June of this year She is complaining of pain in her right shoulder patient says that she woke up with this pain this morning I have ordered x-ray of her shoulder, she is tender over rotator cuff I have sent prednisone for 5 days we will book a telemedicine visit on to see how she is doing We discussed regular follow-up appointment again, it is highly important that we see her periodically in order to continue our care. She is also due for labs. Hypertension: she is taking nifedipine 30 mg daily and losartan 100 mg, blood pressure is well controlled patient is tolerating medications Asthma is stable with Symbicort maintenance inhaler Lipid disorder: Continue atorvastatin 80 mg patient is tolerating medication no side effects. GERD is stable with famotidine 20 mg Depression: Continue venlafaxine 37.5 mg she is also taking trazodone at night to sleep. BMI is elevated at 36.2 patient is trying to lose weight She has started working in [employer] but tells me that she is not drinking any alcohol Follow-up 3 months [facility] Medical History CAD (coronary artery disease) Environmental allergies Anxiety, generalized Chronic GERD Asthma, moderate Constipation by delayed colonic transit Lipid disorder Chronic vertigo Hypertension, essential Difficulty sleeping Surgical History Stented coronary artery History of shoulder surgery History of tooth extraction History of left oophorectomy Family History Father Myocardial infarction Mother CHF (congestive heart failure) History of back surgery Brother Acute myocardial infarction Sister Acute myocardial infarction Maternal Grandfather Colon cancer Maternal Grandmother Cancer Paternal Grandmother History of heart attack Cervical cancer Paternal Grandfather No problems noted. Maternal Uncle History of heart attack Sister No problems noted. Brother No problems noted. Brother No problems noted. Brother No problems noted. Social History Housing: Apartment Alcohol intake: current Alcohol intake frequency: a few times a week Patient Tobacco Use Status: Former Tobacco user Quit Date: 16 years ago Current occupational status: employed Current occupation: left handed Gender identity: Female Cognitive needs: No Hearing needs: No Vision needs: No Questionnaire PHQ-9 Over the last 2 weeks, how often have you been bothered by any of the following problems? 1. Little interest or pleasure in doing things: not at all 2. Feeling down, depressed, or hopeless: not at all 3. Trouble falling or staying asleep, or sleeping too much: not at all 4. Feeling tired or having little energy: not at all 5. Poor appetite or overeating: not at all 6. Feeling bad about yourself - or that you are a failure or have let yourself or your family down: not at all 7. Trouble concentrating on things, such as reading the newspaper or watching television: not at all 8. Moving or speaking so slowly that other people could have noticed. Or the opposite - being so fidgety or restless that you have been moving around a lot more than usual: not at all 9. Thoughts that you would be better off or of hurting yourself in some way: not at all Total score: 0 Depression Screening Interpretation: Negative Depression Screening Done: Yes 07906 - PHQ-9 Billing: Yes Source: Developed by Drs. Rylan Carroll, Amada Callejas, Get Johnston and colleagues, with an educational javier from [employer] - [place]. Thrive Questionnaire Date Thrive assessed: 02/12/23 I am a: Patient What is your living situation today?: I have a steady place to live Within the past 12 months, did the food you bought not last and you didn't have the money to get more?: Never true Within the past 12 months, did you worry whether your food would run out before you got money to buy more?: Never true Do you have trouble paying for medicines?: No Do you have trouble getting transportation to medical appointments?: No Do you have trouble paying your heating and electricity bill?: No Do you have trouble taking care of your child, family member or friend?: No Do you have trouble with day-to-day activities such as bathing, preparing meals, shopping, managing finances, etc.?: No Are you currently unemployed and looking for a job?: No Are you interested in more education?: No Please select the resources that you would like help with: None Currently or been in a relationship where the following occur: no concerns reported DENA-7 AMB Questionnaire DENA-7 Date DENA - 7 assessed: 02/12/23 Feeling nervous, anxious, or on edge: 0 = Not at all Not being able to stop or control worryin = Not at all Worrying too much about different things: 0 = Not at all Trouble relaxin = Not at all Being so restless that it is hard to sit still: 0 = Not at all Becoming easily annoyed or irritable: 0 = Not at all Feeling afraid as if something awful might happen: 0 = Not at all Total DENA-7 score (0-4 normal; 5-9 mild; 10-14 moderate; 15-21 severe): 0 Source: Developed by Drs. Rylan Carroll, Amada Callejas, Get Johnston and colleagues, with an educational javier from [employer] - [place]. DENA-7 Assessment Billing DENA-7 Assessment Tool: DENA-7 Assessment 44154 Review of Systems Const Denies chills and Denies fever(s) ENT Denies epistaxis and Denies nasal discharge Card Denies chest pain Resp Denies chest congestion, Denies cough and Denies hemoptysis GI Denies diarrhea and Denies nausea Skin/Breast Denies rash Neuro Reports no additional complaints Psych Reports no additional complaints Endo Reports no additional complaints Physical exam (Primary Care) Vital Signs: Last Vital Signs Pulse 79 02/12/23 13:15 BP 124/72 02/12/23 13:15 Pulse Ox 94 02/12/23 13:15 Oxygen Delivery Method Room Air 02/12/23 13:15 BMI result Body Mass Index 36.2 Tobacco/Smoking Status: Tobacco use Status Tobacco use date assessed 02/12/23 02/12/23 13:20 Patient Tobacco Use Status Former Tobacco user 02/12/23 13:20 PHQ-9: PHQ-9 Score PHQ-9: Total score 0 02/12/23 14:17 Depression Screening Interpretation: Negative Thrive Assessment: Date of Thrive Assessment Date Thrive assessed 02/12/23 02/12/23 13:27 Currently or been in a relationship where the following occur: no concerns reported Const General: cooperative, comfortable and no acute distress Orientation/consciousness: patient oriented x3 HENMT Head: Yes normocephalic Eyes General: appearance normal, both eyes and all related structures Neck Neck: Yes supple Resp Effort & Inspection: normal respiratory effort, no cough and no stridor Cardio Rhythm: regular rhythm Heart sounds: S1 normal heart sound present and S2 normal heart sound present Skin General skin exam: turgor normal Neuro General: patient oriented x3, tone normal and moves all extremities Extrem Shoulder/upper arm images: 2 1. Tender to pressure, range of motion limited because of pain Right lower extremity: no edema Left lower extremity: no edema Office Procedures Flu Questionnaire Does the patient have a severe egg allergy?: No Does the patient have severe life threatening allergies?: No Does the patient have a fever or illness today?: No Has the patient ever had Guillain-[place] Syndrome?: No Has the patient ever had any past reaction to a flu shot?: No Immunizations flu vacc [id number] 6mos up(PF) 60 mcg(15 mcgx4)/0.5 mL IM syringe Performing Provider: Dee Joseph MD Performing Location: [facility] Administered by: Rolf Geronimo CMA on 02/12/23 14:17 2 Dose Route Admin Location Dispensed Lot Number Expiration Date [employer] 0.5 mL IM Left Deltoid 0.5 mL [id number] 10/17/23 [id number] [employer] 2 VIS Given Date VIS Provided VIS Publication Date 02/12/23 Single Vaccine 20 Eligibility Eligibility Date Funding Source Not [facility] Eligible 02/12/23 Private Assessment and Plan Assessment & Plan (1) Hypertension, essential: Code(s): I10 - Essential (primary) hypertension (2) Acute pain of right shoulder: Code(s): M25.511 - Pain in right shoulder (3) Lipid disorder: Code(s): E78.9 - Disorder of lipoprotein metabolism, unspecified (4) Difficulty sleeping: Code(s): G47.9 - Sleep disorder, unspecified (5) Environmental allergies: Code(s): Z91.09 - Other allergy status, other than to drugs and biological substances (6) Asthma, moderate: Code(s): J45.909 - Unspecified asthma, uncomplicated Qualifiers: Asthma complication type: uncomplicated Asthma persistence: persistent Qualified Code(s): J45.40 - Moderate persistent asthma, uncomplicated (7) Chronic GERD: Code(s): K21.9 - Gastro-esophageal reflux disease without esophagitis (8) Anxiety, generalized: Code(s): F41.1 - Generalized anxiety disorder Plan Patient is a 57-year-old female came in today for follow-up appointment Patient has habit of missing her appointments Last time seen was June of this year She is complaining of pain in her right shoulder patient says that she woke up with this pain this morning I have ordered x-ray of her shoulder, she is tender over rotator cuff I have sent prednisone for 5 days we will book a telemedicine visit on to see how she is doing We discussed regular follow-up appointment again, it is highly important that we see her periodically in order to continue our care. She is also due for labs. Hypertension: she is taking nifedipine 30 mg daily and losartan 100 mg, blood pressure is well controlled patient is tolerating medications Asthma is stable with Symbicort maintenance inhaler Lipid disorder: Continue atorvastatin 80 mg patient is tolerating medication no side effects. GERD is stable with famotidine 20 mg Depression: Continue venlafaxine 37.5 mg she is also taking trazodone at night to sleep. BMI is elevated at 36.2 patient is trying to lose weight She has started working in [employer] but tells me that she is not drinking any alcohol Follow-up 3 months Orders: Orders 2 LDL Cholesterol Direct Today E78.9 - Disorder of lipoprotein metabolism, unspecified, F41.1 - Generalized anxiety disorder, G47.9 - Sleep disorder, unspecified, I10 - Essential (primary) hypertension, J45.909 - Unspecified asthma, uncomplicated, K21.9 - Gastro-esophageal reflux disease without esophagitis, Z91.09 - Other allergy status, other than to drugs and biological substances Vitamin D 25-OH (D2 and D3) Today E78.9 - Disorder of lipoprotein metabolism, unspecified, F41.1 - Generalized anxiety disorder, G47.9 - Sleep disorder, unspecified, I10 - Essential (primary) hypertension, J45.909 - Unspecified asthma, uncomplicated, K21.9 - Gastro-esophageal reflux disease without esophagitis, Z91.09 - Other allergy status, other than to drugs and biological substances Influenza [id number] Immunization Today Z23 - Encounter for immunization Complete Blood Count Auto Diff Today E78.9 - Disorder of lipoprotein metabolism, unspecified, F41.1 - Generalized anxiety disorder, G47.9 - Sleep disorder, unspecified, I10 - Essential (primary) hypertension, J45.909 - Unspecified asthma, uncomplicated, K21.9 - Gastro-esophageal reflux disease without esophagitis, Z91.09 - Other allergy status, other than to drugs and biological substances Comprehensive Met. Panel Today E78.9 - Disorder of lipoprotein metabolism, unspecified, F41.1 - Generalized anxiety disorder, G47.9 - Sleep disorder, unspecified, I10 - Essential (primary) hypertension, J45.909 - Unspecified asthma, uncomplicated, K21.9 - Gastro-esophageal reflux disease without esophagitis, Z91.09 - Other allergy status, other than to drugs and biological substances TSH reflex Free T4 Today E78.9 - Disorder of lipoprotein metabolism, unspecified, F41.1 - Generalized anxiety disorder, G47.9 - Sleep disorder, unspecified, I10 - Essential (primary) hypertension, J45.909 - Unspecified asthma, uncomplicated, K21.9 - Gastro-esophageal reflux disease without esophagitis, Z91.09 - Other allergy status, other than to drugs and biological substances XR shoulder RT min 2V Today M25.511 - Pain in right shoulder Medications: New 2 prednisone 50 mg PO DAILY 5 tabs 0RF 5 days Coding Level of Care Code Est Pt Level 4 (24901) Diagnoses Hypertension, essential I10 Acute pain of right shoulder M25.511 Lipid disorder E78.9 Difficulty sleeping G47.9 Environmental allergies Z91.09 Moderate persistent asthma without complication J45.40 Asthma complication type: uncomplicated Asthma persistence: persistent Chronic GERD K21.9 Anxiety, generalized F41.1 Additional Codes DENA-7 Assessment Billing - DENA-7 Assessment Tool: DENA-7 Assessment [id number] ([id number])
[2023-02-12 13:15] VITALS: BP 124/72; PULSE 79; O2SAT 94; BMI 36.2
== END 2023-02-12 13:43 | disposition home or self-care (01) ==
PROVIDERS: PCP Internal Medicine; Visit Provider Internal Medicine
DX: I10 Essential (primary) hypertension (principal); M25.511 Pain in right shoulder; E78.9 Disorder of lipoprotein metabolism, unspecified; G47.9 Sleep disorder, unspecified; Z91.09 Other allergy status, other than to drugs and biological substances; J45.40 Moderate persistent asthma, uncomplicated; K21.9 Gastro-esophageal reflux disease without esophagitis; F41.1 Generalized anxiety disorder; Z23 Encounter for immunization
CPT/HCPCS: 90471; 90686; 99214

== ENCOUNTER 2023-02-12 13:44 | Outpatient (REF) | payer OTHER, SELFPAY ==
--- NOTE | ~2023-02-12 | XR_ITS ---
EXAMINATION: XR SHOULDER, RIGHT CLINICAL INFORMATION: Right shoulder pain. COMPARISON: None available. TECHNIQUE: Three views of the right shoulder. FINDINGS: Advanced degenerative changes in the acromioclavicular joint with joint space narrowing and hypertrophic change. Degenerative changes in the imaged upper thoracic spine. Glenohumeral alignment preserved. Mild hypertrophic change along the inferior aspect of the glenoid. Mild hypertrophy and sclerosis along the inferior aspect of the acromion. XR/XR shoulder RT min 2V IMPRESSION: Degenerative changes right shoulder.
[2023-02-12 16:08] LABS: MANUAL DIFF FLAG NO
[2023-02-12 16:12] LABS: Basophils Absolute Auto 0.1 X10*3/uL (0.0-0.2); Basophils Percent Auto 0.5 % (0-2); Eosinophils Absolute Auto 0.1 X10*3/uL (0.0-0.4); Eosinophils Percent Auto 1.2 % (0-4); Hematocrit 43.9 % (37.0-47.0); Hemoglobin 14.7 g/dl (12.0-16.0); Imm Gran Abs Auto 0.06 X10*3/uL (0.00-0.03); Imm Gran Pct Auto 0.6 % (0.0-0.4); Lymphocytes Absolute Auto 1.3 X10*3/uL (1.2-4.9); Lymphocytes Percent Auto 12.3 % (20-40); Mean Corpuscular HGB Conc 33.5 g/dl (31.0-35.0); Mean Corpuscular Hemoglobin 31.3 pg (27.0-33.0); Mean Corpuscular Volume 93.6 fL (80.0-98.0); Mean Platelet Volume 9.9 fL (9.4-12.3); Monocytes Absolute Auto 0.9 X10*3/uL (0.1-1.2); Neutrophils Absolute Auto 7.9 x10*3/uL (2.0-8.3); Neutrophils Percent Auto 76.4 % (45-73); Platelet Count 236 X10*3/uL (160-400); Red Blood Count 4.69 X10*6/uL (4.20-5.50); Red Cell Distribution Width 14.4 % (11.0-16.0); White Blood Count 10.3 X10*3/uL (4.8-10.8)
[2023-02-12 16:30] LABS: Alanine Aminotransferase 54 U/L (0-31); Albumin Level 4.1 g/dL (3.5-5.0); Alkaline Phosphatase 88 U/L (39-117); Anion Gap 12 (12-20); Aspartate Amino Transferase 39 U/L (5-31); Bilirubin Total 1.2 mg/dL (0.0-1.0); Blood Urea Nitrogen 15 mg/dL (9-16); Calcium 9.7 mg/dL (8.4-10.2); Carbon Dioxide 26 mmol/L (22-29); Chloride 104 mmol/L (96-108); Estimated Glomerular Filt Rate > 60; Glucose Random 101 mg/dL (60-115); Sodium 138 mmol/L (135-145); Total Protein 7.3 g/dL (6.5-8.0)
[2023-02-16 15:29] LABS: Vitamin D 25-OH, D2 <4 ng/mL; Vitamin D 25-OH, D3 13 ng/mL; Vitamin D 25-OH, Total 13 ng/mL (30-100)
[2023-02-17 02:43] LABS: LDL Cholesterol Direct 83 mg/dL (<100)
== END 2023-02-12 13:45 | disposition home or self-care (01) ==
LOC: HO.HMGCX 13:44
PROVIDERS: PCP Internal Medicine; Visit Provider Internal Medicine
DX: M25.511 Pain in right shoulder (principal); I10 Essential (primary) hypertension; E78.9 Disorder of lipoprotein metabolism, unspecified; G47.9 Sleep disorder, unspecified; F41.1 Generalized anxiety disorder; K21.9 Gastro-esophageal reflux disease without esophagitis; J45.909 Unspecified asthma, uncomplicated; Z91.09 Other allergy status, other than to drugs and biological substances
CPT/HCPCS: 36415; 73030; 80053; 82306; 83721; 84443; 85025

== ENCOUNTER 2023-08-11 08:11 | Outpatient (AMB) | payer OTHER, SELFPAY ==
--- NOTE | 2023-08-11 08:29 | A.OFFPC_ITS ---
Vital Signs 08/11/23 08:30 Height 5 ft 2 in Weight 213 lb BMI 39.0 BP 156/78 H Blood Pressure Location Rt brachial Position Sitting Pulse 93 Pulse Source Pulse Oximeter Pulse Oximetry (%) 96 Oxygen Delivery Method Room Air Intake Visit Reasons: 6 month follow up Allergies bee pollen [BEE STINGS] Allergy (Severe, Verified 08/11/23 08:34) ANAPHYLAXIS spider venom [SPIDER BITES] Allergy (Mild, Verified 08/11/23 08:34) SWELLING acetaminophen [Vicodin] Allergy (Unknown, Verified 08/11/23 08:34) nausea and vomiting hydrocodone [Vicodin] Allergy (Unknown, Verified 08/11/23 08:34) nausea and vomiting Medication List - Last Reconciled 08/11/23 by eDe Joseph MD albuterol sulfate 90 mcg/actuation 1 puff inhalation QID PRN 30 days aspirin 81 mg PO DAILY 90 days atorvastatin 80 mg PO DAILY 90 days budesonide-formoterol 160-4.5 mcg/actuation (Symbicort) 2 puffs inhalation BID 30 days epinephrine (EpiPen 2-Keith) 0.3 mg (0.3 mL) IM Q10M PRN 90 days famotidine 20 mg PO DAILY losartan 100 mg PO DAILY 90 days meclizine 25 mg PO TID PRN nifedipine ER 30 mg PO DAILY 90 days sennosides-docusate sodium 8.6-50 mg 1 tab-cap PO BEDTIME 90 days trazodone 200 mg (2 x 100 mg) PO ONCE 30 days venlafaxine ER 37.5 mg PO DAILY 90 days Ventolin HFA 90 mcg/actuation (albuterol sulfate) 1 inh inhalation QID PRN 30 days NS Tobacco use date assessed: 08/11/23 Dental Screening Dental Screen Date: 08/11/23 Did you have a dental visit in the last 12 months?: No Did you have a dental problem in the last 6 months where you did not have access to dental care?: No Was dental information given to patient?: No HPI 6 month follow up HPI Details 58-year-old female came in today for her regular follow-up appointment Last visit was end january, patient missed her regular follow-up appointment as usual after that. Cardiology visit 2020 reviewed, CAD with prior stenting of the RCA in 2016 with repeat cardiac catheterization in 2018 showing nonobstructive disease and patent stent. She is supposed to have a visit once a year at least with the wash rack operator but she did not. She was complaining of feeling chest discomfort off and on which last just few seconds Patient also have GERD, I am adding pantoprazole to her famotidine. We also did EKG which shows some abnormalities but nothing acute Compared to the EKG done in 2020 new changes are present but that also can be the placement of lead, patient need to have a follow-up with the wash rack operator at least once a year I have placed a referral. She was evaluated by Dr. Sr in 2020. Hypertension: she is taking nifedipine 30 mg daily and losartan 100 mg, blood pressure is well controlled patient is tolerating medications Asthma is stable with Symbicort maintenance inhaler Lipid disorder: Continue atorvastatin 80 mg patient is tolerating medication no side effects. GERD is stable with famotidine 20 mg Depression: Continue venlafaxine 37.5 mg she is also taking trazodone at night to sleep. BMI is elevated , patient is trying to lose weight Due for labs, patient was notified that medication will only be filled at visit every 3 months Follow-up 3 months [facility] Medical History CAD (coronary artery disease) Environmental allergies Anxiety, generalized Chronic GERD Asthma, moderate Constipation by delayed colonic transit Lipid disorder Chronic vertigo Hypertension, essential Difficulty sleeping Surgical History Stented coronary artery History of shoulder surgery History of tooth extraction History of left oophorectomy Family History Father Myocardial infarction Mother CHF (congestive heart failure) History of back surgery Brother Acute myocardial infarction Sister Acute myocardial infarction Maternal Grandfather Colon cancer Maternal Grandmother Cancer Paternal Grandmother History of heart attack Cervical cancer Paternal Grandfather No problems noted. Maternal Uncle History of heart attack Sister No problems noted. Brother No problems noted. Brother No problems noted. Brother No problems noted. Social History Housing: Apartment Alcohol intake: current Alcohol intake frequency: a few times a week Patient Tobacco Use Status: Former Tobacco user Quit Date: 16 years ago e-Cigarette/Vaping Use: Never Used service: No Current occupational status: employed Current occupation: left handed Gender identity: Female Cognitive needs: No Hearing needs: No Vision needs: No Questionnaire PHQ-9 Over the last 2 weeks, how often have you been bothered by any of the following problems? 1. Little interest or pleasure in doing things: not at all 2. Feeling down, depressed, or hopeless: not at all 3. Trouble falling or staying asleep, or sleeping too much: not at all 4. Feeling tired or having little energy: not at all 5. Poor appetite or overeating: not at all 6. Feeling bad about yourself - or that you are a failure or have let yourself or your family down: not at all 7. Trouble concentrating on things, such as reading the newspaper or watching television: not at all 8. Moving or speaking so slowly that other people could have noticed. Or the opposite - being so fidgety or restless that you have been moving around a lot more than usual: not at all 9. Thoughts that you would be better off or of hurting yourself in some way: not at all Total score: 0 Depression Screening Interpretation: Negative Depression Screening Done: Yes 53524 - PHQ-9 Billing: Yes Source: Developed by Drs. yRlan Carroll, Amada Callejas, Get Johnston and colleagues, with an educational javier from [employer]. Thrive Questionnaire Date Thrive assessed: 08/11/23 I am a: Patient What is your living situation today?: I have a steady place to live Within the past 12 months, did the food you bought not last and you didn't have the money to get more?: Never true Within the past 12 months, did you worry whether your food would run out before you got money to buy more?: Never true Do you have trouble paying for medicines?: No Do you have trouble getting transportation to medical appointments?: No Do you have trouble paying your heating and electricity bill?: No Do you have trouble taking care of your child, family member or friend?: No Do you have trouble with day-to-day activities such as bathing, preparing meals, shopping, managing finances, etc.?: No Are you currently unemployed and looking for a job?: No Are you interested in more education?: No Please select the resources that you would like help with: None Currently or been in a relationship where the following occur: no concerns reported THRIVE Score: 0 AUDIT C Alcohol Use Questionnaire (AUDIT-C) 1. How often do you have a drink containing alcohol?: Never 3. How often do you have six or more drinks on one occasion?: Never Total Score: 0 Score Reviewed/Action Taken: Yes DENA-7 AMB Questionnaire DENA-7 Date DENA - 7 assessed: 08/11/23 Feeling nervous, anxious, or on edge: 0 = Not at all Not being able to stop or control worryin = Not at all Worrying too much about different things: 0 = Not at all Trouble relaxin = Not at all Being so restless that it is hard to sit still: 0 = Not at all Becoming easily annoyed or irritable: 0 = Not at all Feeling afraid as if something awful might happen: 0 = Not at all Total DENA-7 score (0-4 normal; 5-9 mild; 10-14 moderate; 15-21 severe): 0 Source: Developed by Drs. Rylan Carroll, Amada Callejas, Get Johnston and colleagues, with an educational javier from [employer]. DENA-7 Assessment Billing DENA-7 Assessment Tool: DENA-7 Assessment 93061 Review of Systems Const Denies chills and Denies fever(s) ENT Denies epistaxis and Denies nasal discharge Card Denies chest pain Resp Denies chest congestion, Denies cough and Denies hemoptysis GI Denies diarrhea and Denies nausea Skin/Breast Denies rash Neuro Reports no additional complaints Psych Reports no additional complaints Endo Reports no additional complaints Physical exam (Primary Care) Vital Signs: Last Vital Signs Pulse 93 08/11/23 08:30 BP 156/78 H 08/11/23 08:30 Pulse Ox 96 08/11/23 08:30 Oxygen Delivery Method Room Air 08/11/23 08:30 BMI result Body Mass Index 39.0 Tobacco/Smoking Status: Tobacco use Status Tobacco use date assessed 08/11/23 08/11/23 08:34 Patient Tobacco Use Status Former Tobacco user 08/11/23 08:34 e-Cigarette/Vaping Use Never Used 08/11/23 08:34 PHQ-9: PHQ-9 Score PHQ-9: Total score 0 08/11/23 09:00 Depression Screening Interpretation: Negative Thrive Assessment: Date of Thrive Assessment Date Thrive assessed 08/11/23 08/11/23 08:57 Currently or been in a relationship where the following occur: no concerns reported Const General: cooperative, comfortable and no acute distress Orientation/consciousness: patient oriented x3 HENMT Head: Yes normocephalic Eyes General: appearance normal, both eyes and all related structures Neck Neck: Yes supple Resp Effort & Inspection: normal respiratory effort, no cough and no stridor Cardio Rhythm: regular rhythm Heart sounds: S1 normal heart sound present and S2 normal heart sound present Skin General skin exam: turgor normal Neuro General: patient oriented x3, tone normal and moves all extremities Extrem Right lower extremity: no edema Left lower extremity: no edema Assessment and Plan Assessment & Plan (1) Hypertension, essential: Code(s): I10 - Essential (primary) hypertension (2) Lipid disorder: Code(s): E78.9 - Disorder of lipoprotein metabolism, unspecified (3) Difficulty sleeping: Code(s): G47.9 - Sleep disorder, unspecified (4) Environmental allergies: Code(s): Z91.09 - Other allergy status, other than to drugs and biological substances (5) Asthma, moderate: Code(s): J45.909 - Unspecified asthma, uncomplicated Qualifiers: Asthma complication type: uncomplicated Asthma persistence: persistent Qualified Code(s): J45.40 - Moderate persistent asthma, uncomplicated (6) Chronic GERD: Code(s): K21.9 - Gastro-esophageal reflux disease without esophagitis (7) Anxiety, generalized: Code(s): F41.1 - Generalized anxiety disorder (8) Chest discomfort: Code(s): R07.89 - Other chest pain (9) CAD (coronary artery disease): Comment: s/p stent Code(s): I25.10 - Atherosclerotic heart disease of [place] coronary artery without angina pectoris Qualifiers: Coronary Disease-Associated Artery/Lesion type: [place] artery [place] vs. transplanted heart: [place] heart Associated angina: without angina Qualified Code(s): I25.10 - Atherosclerotic heart disease of [place] coronary artery without angina pectoris (10) Stented coronary artery: Comment: 2017, drug-eluting stent to mid RCA for symptoms of exertional shortness of breath and abnormal stress test. Subsequent cardiac catheterization in two stents and mild diffuse coronary artery disease P Code(s): Z95.5 - Presence of coronary angioplasty implant and graft (11) Abnormal EKG: Code(s): R94.31 - Abnormal electrocardiogram [ECG] [EKG] Plan 58-year-old female came in today for her regular follow-up appointment Last visit was end january, patient missed her regular follow-up appointment as usual after that. Cardiology visit 2020 reviewed, CAD with prior stenting of the RCA in 2017 with repeat cardiac catheterization in 2019 showing nonobstructive disease and patent stent. She is supposed to have a visit once a year at least with the wash rack operator but she did not. She was complaining of feeling chest discomfort off and on which last just few seconds Patient also have GERD, I am adding pantoprazole to her famotidine. We also did EKG which shows some abnormalities but nothing acute Compared to the EKG done in 2020 new changes are present but that also can be the placement of lead, patient need to have a follow-up with the wash rack operator at least once a year I have placed a referral. She was evaluated by Dr. Sr in 2020. Hypertension: she is taking nifedipine 30 mg daily and losartan 100 mg, blood pressure is well controlled patient is tolerating medications Asthma is stable with Symbicort maintenance inhaler Lipid disorder: Continue atorvastatin 80 mg patient is tolerating medication no side effects. GERD is stable with famotidine 20 mg Depression: Continue venlafaxine 37.5 mg she is also taking trazodone at night to sleep. BMI is elevated , patient is trying to lose weight Due for labs, patient was notified that medication will only be filled at visit every 3 months Follow-up 3 months 45 minutes spent in care of this patient Including [id number] discussing medical problems, medications, orders for labs, EKG, reviewing EKG Reviewing cardiology notes, charting. Orders: Orders Complete Blood Count Auto Diff Today E78.9 - Disorder of lipoprotein metabolism, unspecified, F41.1 - Generalized anxiety disorder, G47.9 - Sleep disorder, unspecified, I10 - Essential (primary) hypertension, J45.40 - Moderate persistent asthma, uncomplicated, K21.9 - Gastro-esophageal reflux disease without esophagitis, Z91.09 - Other allergy status, other than to drugs and biological substances Comprehensive Met. Panel Today E78.9 - Disorder of lipoprotein metabolism, unspecified, F41.1 - Generalized anxiety disorder, G47.9 - Sleep disorder, unspecified, I10 - Essential (primary) hypertension, J45.40 - Moderate persistent asthma, uncomplicated, K21.9 - Gastro-esophageal reflux disease without esophagitis, Z91.09 - Other allergy status, other than to drugs and biological substances LDL Cholesterol Direct Today E78.9 - Disorder of lipoprotein metabolism, unspecified, F41.1 - Generalized anxiety disorder, G47.9 - Sleep disorder, unspecified, I10 - Essential (primary) hypertension, J45.40 - Moderate persistent asthma, uncomplicated, K21.9 - Gastro-esophageal reflux disease without esophagitis, Z91.09 - Other allergy status, other than to drugs and biological substances AMB EKG-In Office Today R07.89 - Other chest pain Referrals Cardiology Referral I25.10 - Atherosclerotic heart disease of [place] coronary artery without angina pectoris, R94.31 - Abnormal electrocardiogram [ECG] [EKG], Z95.5 - Presence of coronary angioplasty implant and graft Medications: New pantoprazole 20 mg PO DAILY 90 tabs 0RF Heartburn Changed From trazodone 200 mg (2 x 100 mg) PO ONCE 30 days 60 tabs 0RF To trazodone 200 mg (2 x 100 mg) PO ONCE 180 tabs 0RF 90 days Refilled atorvastatin 80 mg PO DAILY 90 tabs 0RF 90 days epinephrine (EpiPen 2-Keith) for 2 doses 0.3 mg (0.3 mL) IM Q10M PRN 2 ea 0RF anaphylaxis 90 days Z91.09 - Other allergy status, other than to drugs and biological substances nifedipine ER 30 mg PO DAILY 90 tabs 0RF 90 days sennosides-docusate sodium 8.6-50 mg 1 tab-cap PO BEDTIME 90 tabs 3RF 90 days venlafaxine ER 37.5 mg PO DAILY 90 caps 0RF 90 days albuterol sulfate 90 mcg/actuation 1 puff inhalation QID PRN 18 grams 2RF for wheezing 30 days Z91.09 - Other allergy status, other than to drugs and biological substances aspirin 81 mg PO DAILY 90 tabs 3RF 90 days budesonide-formoterol 160-4.5 mcg/actuation (Symbicort) 2 puffs inhalation BID 10.2 grams 2RF 30 days J45.909 - Unspecified asthma, uncomplicated famotidine 20 mg PO DAILY 90 tabs 0RF losartan 100 mg PO DAILY 90 tabs 0RF 90 days Coding Level of Care Code Est Pt Level 5 (04508) Diagnoses Hypertension, essential I10 Lipid disorder E78.9 Difficulty sleeping G47.9 Environmental allergies Z91.09 Moderate persistent asthma without complication J45.40 Asthma complication type: uncomplicated Asthma persistence: persistent Chronic GERD K21.9 Anxiety, generalized F41.1 Chest discomfort R07.89 Coronary artery disease involving [place] coronary artery of [place] heart without angina pectoris I25.10 Coronary Disease-Associated Artery/Lesion type: [place] artery [place] vs. transplanted heart: [place] heart Associated angina: without angina Stented coronary artery Z95.5 Abnormal EKG R94.31 Additional Codes DENA-7 Assessment Billing - DENA-7 Assessment Tool: DNEA-7 Assessment 23812 ([id number])
[2023-08-11 08:30] VITALS: BP 156/78; PULSE 93; O2SAT 96; BMI 39.0
== END 2023-08-11 10:59 | disposition home or self-care (01) ==
PROVIDERS: PCP Internal Medicine; Visit Provider Internal Medicine
DX: I10 Essential (primary) hypertension (principal); E78.9 Disorder of lipoprotein metabolism, unspecified; G47.9 Sleep disorder, unspecified; Z91.09 Other allergy status, other than to drugs and biological substances; J45.40 Moderate persistent asthma, uncomplicated; K21.9 Gastro-esophageal reflux disease without esophagitis; F41.1 Generalized anxiety disorder; R07.89 Other chest pain; I25.10 Atherosclerotic heart disease of native coronary artery without angina pectoris; Z95.5 Presence of coronary angioplasty implant and graft; R94.31 Abnormal electrocardiogram [ECG] [EKG]
CPT/HCPCS: 93000; 99215

== ENCOUNTER 2023-08-18 09:22 | Outpatient (AMB) | payer OTHER, SELFPAY ==
[2023-08-18 09:40] VITALS: BMI 39.0
--- NOTE | 2023-08-18 09:40 | MHC.OFFVIS ---
Vital Signs 08/18/23 09:40 Height 5 ft 2 in Weight 213 lb BMI 39.0 Intake Visit Reasons: Newprob-Left knee pain-pain two/three months Intake Note: Majo is a 58 year old female who presents with Left knee pain. Patient reports her pain has been going on for about three months and is a 8 on the 1-10 pain scale and gets worse when walking especially after sitting for a while. She states she is using voltaren cream, aleve, and tylenol for the pain with no relief. She denies injury, injections, and surgery. She would like to hold off on surgery for as long as possible. Allergies bee pollen [BEE STINGS] Allergy (Severe, Verified 08/18/23 09:45) ANAPHYLAXIS spider venom [SPIDER BITES] Allergy (Mild, Verified 08/18/23 09:45) SWELLING acetaminophen [Vicodin] Allergy (Unknown, Verified 08/18/23 09:45) nausea and vomiting hydrocodone [Vicodin] Allergy (Unknown, Verified 08/18/23 09:45) nausea and vomiting Medication List - Last Reconciled 08/18/23 by Max Dueñas MD albuterol sulfate 90 mcg/actuation 1 puff inhalation QID PRN 30 days aspirin 81 mg PO DAILY 90 days atorvastatin 80 mg PO DAILY 90 days budesonide-formoterol 160-4.5 mcg/actuation (Symbicort) 2 puffs inhalation BID 30 days epinephrine (EpiPen 2-Keith) 0.3 mg (0.3 mL) IM Q10M PRN 90 days famotidine 20 mg PO DAILY losartan 100 mg PO DAILY 90 days meclizine 25 mg PO TID PRN nifedipine ER 30 mg PO DAILY 90 days pantoprazole 20 mg PO DAILY sennosides-docusate sodium 8.6-50 mg 1 tab-cap PO BEDTIME 90 days trazodone 200 mg (2 x 100 mg) PO ONCE 90 days venlafaxine ER 37.5 mg PO DAILY 90 days Ventolin HFA 90 mcg/actuation (albuterol sulfate) 1 inh inhalation QID PRN 30 days [facility] Medical History CAD (coronary artery disease) Environmental allergies Anxiety, generalized Chronic GERD Asthma, moderate Constipation by delayed colonic transit Lipid disorder Chronic vertigo Hypertension, essential Difficulty sleeping Surgical History Stented coronary artery History of shoulder surgery History of tooth extraction History of left oophorectomy Family History Father Myocardial infarction Mother CHF (congestive heart failure) History of back surgery Brother Acute myocardial infarction Sister Acute myocardial infarction Maternal Grandfather Colon cancer Maternal Grandmother Cancer Paternal Grandmother History of heart attack Cervical cancer Paternal Grandfather No problems noted. Maternal Uncle History of heart attack Sister No problems noted. Brother No problems noted. Brother No problems noted. Brother No problems noted. Social History Housing: Apartment Alcohol intake: current Alcohol intake frequency: a few times a week Patient Tobacco Use Status: Former Tobacco user Quit Date: 16 years ago e-Cigarette/Vaping Use: Never Used service: No Current occupational status: employed Current occupation: left handed Gender identity: Female Cognitive needs: No Hearing needs: No Vision needs: No Physical Exam Vital Signs: BMI result Body Mass Index 39.0 Const Other: Well-nourished well-developed very friendly female awake alert and oriented x3 in no acute distress Extrem Other: Bilateral lower extremity examination shows good capillary refill, no skin lesions noted, normal sensation light touch Left knee examination shows a minimal effusion, palpable crepitus with range of motion, pain with range of motion, no instability Office Procedures Joint Injection/Drain Joint Injection/Drain Primary Site: left knee Prep: site was prepped using aseptic technique Injected: 40 mg of, DepoMedrol and 1% plain lidocaine Procedure: The patient tolerated the procedure well Coding 74643 - Large joint Procedure code (CPT) selection complete Assessment & Plan Assessment & Plan (1) Arthritis of left knee: Code(s): M17.12 - Unilateral primary osteoarthritis, left knee Category: Medical Plan Ms. Cheatham presents with left knee pain due to degenerative joint disease. I had a lengthy discussion with the patient regarding treatment options. She wishes to hold off on surgery for as long as possible. I agree with this plan. The risks and benefits of a left knee cortisone injection were discussed at length with the patient. The patient wished to proceed. She tolerated the injection well. She will continue with her activity modifications. She will contact me prior to her follow-up appointment in 3 months should any questions or concerns arise. Feel free to call me at any time should questions regarding her orthopedic management arise. Thank you very much for asking me to see this very friendly patient. I spent 21 minutes in reviewing the patient's records and imaging studies, seeing the patient and documenting in the medical record. Orders: Orders AMB Joint Injection/Aspiration Today M17.12 - Unilateral primary osteoarthritis, left knee XR knee LT 3V Today M25.562 - Pain in left knee Coding Level of Care Code New Pt Level 2 (78995) Diagnoses Arthritis of left knee M17.12 CPT Codes Coding - 50627 Large joint: 09780 - Large joint ([id number])
== END 2023-08-18 10:14 | disposition home or self-care (01) ==
PROVIDERS: PCP Internal Medicine; Visit Provider Orthopaedic Surgery
DX: M17.12 Unilateral primary osteoarthritis, left knee (principal)
CPT/HCPCS: 20610; 99203

== ENCOUNTER 2023-08-18 09:35 | Outpatient (REF) | payer OTHER, SELFPAY ==
--- NOTE | ~2023-08-18 | XR_ITS ---
EXAMINATION: XR KNEE, LEFT CLINICAL INFORMATION: Pain in left knee. COMPARISON: None available. TECHNIQUE: Three views of the left knee. FINDINGS: Moderate narrowing of the medial compartment. Small joint effusion. Asymmetric lateral narrowing of the patellofemoral compartment with tiny posterior patellar spurs. Tiny medial marginal osteophytes. XR/XR knee LT 3V IMPRESSION: Moderate degenerative changes.
== END 2023-08-18 09:36 | disposition home or self-care (01) ==
LOC: HO.HOSX 09:35
PROVIDERS: Visit Provider Orthopaedic Surgery
DX: M17.12 Unilateral primary osteoarthritis, left knee (principal)
CPT/HCPCS: 20610; 73562; 99202; J1010

== ENCOUNTER 2023-09-01 10:00 | Outpatient (AMB) | payer OTHER, SELFPAY ==
[2023-09-01 10:03] VITALS: BMI 39.0
--- NOTE | 2023-09-01 10:03 | MHC.OFFVIS ---
Vital Signs 09/01/23 10:03 Height 5 ft 2 in Weight 213 lb BMI 39.0 Intake Visit Reasons: Newprob-Right shoulder pain Intake Note: Majo is a 58 year old Left hand dominant female who presents with Right shoulder pain and weakness. She did undergo left shoulder arthroscopic surgery by another orthopedic surgeon several years ago. She reports minimal discomfort in her left shoulder. She describes her right shoulder pain as sharp and severe in nature. She reports weakness when lifting her hand above shoulder height. She has done physical therapy which aggravated her pain. She has failed conservative treatment over the last 6 weeks. She has had injections in the past which gave her no relief. She has also tried Tylenol and anti-inflammatory medicines which gave her minimal relief. Allergies bee pollen [BEE STINGS] Allergy (Severe, Verified 09/01/23 10:08) ANAPHYLAXIS spider venom [SPIDER BITES] Allergy (Mild, Verified 09/01/23 10:08) SWELLING acetaminophen [Vicodin] Allergy (Unknown, Verified 09/01/23 10:08) nausea and vomiting hydrocodone [Vicodin] Allergy (Unknown, Verified 09/01/23 10:08) nausea and vomiting [facility] Medical History CAD (coronary artery disease) Environmental allergies Anxiety, generalized Chronic GERD Asthma, moderate Constipation by delayed colonic transit Lipid disorder Chronic vertigo Hypertension, essential Difficulty sleeping Surgical History Stented coronary artery History of shoulder surgery History of tooth extraction History of left oophorectomy Family History Father Myocardial infarction Mother CHF (congestive heart failure) History of back surgery Brother Acute myocardial infarction Sister Acute myocardial infarction Maternal Grandfather Colon cancer Maternal Grandmother Cancer Paternal Grandmother History of heart attack Cervical cancer Paternal Grandfather No problems noted. Maternal Uncle History of heart attack Sister No problems noted. Brother No problems noted. Brother No problems noted. Brother No problems noted. Social History Housing: Apartment Alcohol intake: current Alcohol intake frequency: a few times a week Patient Tobacco Use Status: Former Tobacco user Quit Date: 16 years ago e-Cigarette/Vaping Use: Never Used service: No Current occupational status: employed Current occupation: left handed Gender identity: Female Cognitive needs: No Hearing needs: No Vision needs: No Physical Exam Vital Signs: BMI result Body Mass Index 39.0 Const Other: Well-nourished well-developed very friendly female awake alert and oriented x3 in no acute distress Extrem Other: Bilateral upper extremity examination shows good capillary refill, no skin lesions noted, normal sensation light touch Right shoulder examination shows decreased range of motion when compared to her left shoulder, 4+ out of 5 strength with supraspinatus testing, positive impingement signs, tenderness over her acromioclavicular joint, no instability Results Reviewed Results Reviewed: X-rays of the patient's right shoulder show severe acromioclavicular joint narrowing, a type 2 acromion, no acute bony abnormalities Assessment & Plan Assessment & Plan (1) Right shoulder pain: Code(s): M25.511 - Pain in right shoulder Category: Medical Plan Ms. Cheatham presents with progressively worsening right shoulder pain and weakness due to impingement syndrome and possible full-thickness rotator cuff tearing. Thus, I will send the patient for an MRI of her right shoulder for further evaluation. I will see her back once the MRI is completed to discuss the findings and treatment options. Feel free to call me at any time should questions regarding her orthopedic management arise. Thank you very much for asking me to see this very friendly patient. I spent 22 minutes in reviewing the patient's records and imaging studies, seeing the patient and documenting in the medical record. Orders: Orders MR shoulder RT wo con Today M25.511 - Pain in right shoulder Coding Level of Care Code New Pt Level 3 (59094) Diagnoses Right shoulder pain M25.511
== END 2023-09-01 10:23 | disposition home or self-care (01) ==
PROVIDERS: PCP Internal Medicine; Visit Provider Orthopaedic Surgery
DX: M25.511 Pain in right shoulder (principal)
CPT/HCPCS: 99214

== ENCOUNTER → 2023-09-01 10:00 | Outpatient (BNVA) | payer OTHER, SELFPAY | PROVIDERS: PCP Internal Medicine; Visit Provider Orthopaedic Surgery | DX: M25.511 Pain in right shoulder (principal) | CPT/HCPCS: 99212 ==

== ENCOUNTER 2023-09-09 13:48 | Outpatient (AMB) | payer OTHER, SELFPAY ==
[2023-09-09 14:03] VITALS: BMI 39.0
--- NOTE | 2023-09-09 14:03 | MHC.OFFVIS ---
Vital Signs 09/09/23 14:03 Height 5 ft 2 in Weight 213 lb BMI 39.0 Intake Visit Reasons: f/u after MRI/ right shoulder Intake Note: Majo is a a 58 year old female who presents for a folllow up of Right shoulder pain and weakness. The patient states that her symptoms have gotten worse since her last visit. She has done physical therapy which aggravated her pain. She has also tried Tylenol and anti-inflammatory medicines. The patient states that her right shoulder MRI was not approved by her insurance company. She states that she needs further non operative treatments in order to qualify for an MRI. She reports weakness when lifting her right hand above shoulder height. Allergies bee pollen [BEE STINGS] Allergy (Severe, Verified 09/09/23 14:12) ANAPHYLAXIS spider venom [SPIDER BITES] Allergy (Mild, Verified 09/09/23 14:12) SWELLING acetaminophen [Vicodin] Allergy (Unknown, Verified 09/09/23 14:12) nausea and vomiting hydrocodone [Vicodin] Allergy (Unknown, Verified 09/09/23 14:12) nausea and vomiting Medication List - Last Reconciled 09/09/23 by Max Dueñas MD albuterol sulfate 90 mcg/actuation 1 puff inhalation QID PRN 30 days aspirin 81 mg PO DAILY 90 days atorvastatin 80 mg PO DAILY 90 days budesonide-formoterol 160-4.5 mcg/actuation (Symbicort) 2 puffs inhalation BID 30 days celecoxib (Celebrex) 200 mg PO DAILY PRN 3 months epinephrine (EpiPen 2-Keith) 0.3 mg (0.3 mL) IM Q10M PRN 90 days famotidine 20 mg PO DAILY losartan 100 mg PO DAILY 90 days meclizine 25 mg PO TID PRN nifedipine ER 30 mg PO DAILY 90 days pantoprazole 20 mg PO DAILY sennosides-docusate sodium 8.6-50 mg 1 tab-cap PO BEDTIME 90 days trazodone 200 mg (2 x 100 mg) PO ONCE 90 days venlafaxine ER 37.5 mg PO DAILY 90 days Ventolin HFA 90 mcg/actuation (albuterol sulfate) 1 inh inhalation QID PRN 30 days [facility] Medical History CAD (coronary artery disease) Environmental allergies Anxiety, generalized Chronic GERD Asthma, moderate Constipation by delayed colonic transit Lipid disorder Chronic vertigo Hypertension, essential Difficulty sleeping Surgical History Stented coronary artery History of shoulder surgery History of tooth extraction History of left oophorectomy Family History Father Myocardial infarction Mother CHF (congestive heart failure) History of back surgery Brother Acute myocardial infarction Sister Acute myocardial infarction Maternal Grandfather Colon cancer Maternal Grandmother Cancer Paternal Grandmother History of heart attack Cervical cancer Paternal Grandfather No problems noted. Maternal Uncle History of heart attack Sister No problems noted. Brother No problems noted. Brother No problems noted. Brother No problems noted. Social History Housing: Apartment Alcohol intake: current Alcohol intake frequency: a few times a week Patient Tobacco Use Status: Former Tobacco user Quit Date: 16 years ago e-Cigarette/Vaping Use: Never Used service: No Current occupational status: employed Current occupation: left handed Gender identity: Female Cognitive needs: No Hearing needs: No Vision needs: No Physical Exam Vital Signs: BMI result Body Mass Index 39.0 Const Other: Well-nourished well-developed very friendly female awake alert and oriented x3 in no acute distress Extrem Other: Bilateral upper extremity examination shows good capillary refill, no skin lesions noted, normal sensation light touch Right shoulder examination shows decreased range of motion when compared to her left shoulder, 4+ out of 5 strength with supraspinatus testing, positive impingement signs, tenderness over her acromioclavicular joint, no instability Office Procedures Joint Injection/Drain Joint Injection/Drain Primary Site: right shoulder Prep: site was prepped using aseptic technique Injected: 40 mg of, DepoMedrol and 1% plain lidocaine Procedure: The patient tolerated the procedure well Coding 48022 - Large joint Procedure code (CPT) selection complete Results Reviewed Results Reviewed: X-rays of the patient's right shoulder show severe acromioclavicular joint narrowing, a type 2 acromion, no acute bony abnormalities Assessment & Plan Assessment & Plan (1) Right shoulder pain: Code(s): M25.511 - Pain in right shoulder Category: Medical Plan Ms. Cheatham presents with progressively worsening right shoulder pain and weakness due to impingement syndrome and possible rotator cuff tearing. At this point the patient has not been able to get an MRI of her right shoulder. She must continue with non operative treatments. Thus, the risks and benefits of a right shoulder cortisone injection were discussed at length with the patient. The patient wished to proceed. She tolerated the injection well. She will continue with her physical therapy exercises. She will contact me prior to her follow-up appointment in another 6 weeks should any questions or concerns arise. If her symptoms have not improved at that point I will reorder her right shoulder MRI and see if it will be approved by her insurance company. Feel free to call me at any time should questions regarding her orthopedic management arise. I spent 21 minutes in reviewing the patient's records and imaging studies, seeing the patient and documenting in the medical record. Orders: Orders AMB Joint Injection/Aspiration 09/09/23 M25.511 - Pain in right shoulder Medications: New celecoxib (Celebrex) 200 mg PO DAILY 3 months PRN 90 caps 3RF pain Coding Level of Care Code Est Pt Level 3 (39545) Diagnoses Right shoulder pain M25.511 CPT Codes Coding - 54310 Large joint: 33800 - Large joint ([id number])
== END 2023-09-09 14:31 | disposition home or self-care (01) ==
PROVIDERS: PCP Internal Medicine; Visit Provider Orthopaedic Surgery
DX: M25.511 Pain in right shoulder (principal)
CPT/HCPCS: 20610; 99214

== ENCOUNTER → 2023-09-09 13:48 | Outpatient (BNVA) | payer OTHER, SELFPAY | PROVIDERS: PCP Internal Medicine; Visit Provider Orthopaedic Surgery | DX: M25.511 Pain in right shoulder (principal) | CPT/HCPCS: 20610; 99212; J1010 ==

== ENCOUNTER 2023-11-23 09:40 | Outpatient (AMB) | payer OTHER, SELFPAY ==
--- NOTE | 2023-11-23 09:52 | MHC.OFFVIS ---
Vital Signs 11/23/23 09:53 Height 5 ft 2 in Weight 213 lb BMI 39.0 Intake Visit Reasons: INJ-Left knee injection-last inj. 08/18/23 Intake Note: Majo is a 58 year old female who presents today for a follow up of left knee, last injection 08/18/23. Patient reports the injection provided her with relief until recently. She states that her left knee pain has returned. She has done physical therapy exercises which aggravated her pain. She has also tried Tylenol and anti-inflammatory medicines which gave her minimal relief. She would like to hold off on surgery for as long as possible. Allergies bee pollen [BEE STINGS] Allergy (Severe, Verified 09/09/23 14:12) ANAPHYLAXIS spider venom [SPIDER BITES] Allergy (Mild, Verified 09/09/23 14:12) SWELLING acetaminophen [Vicodin] Allergy (Unknown, Verified 09/09/23 14:12) nausea and vomiting hydrocodone [Vicodin] Allergy (Unknown, Verified 09/09/23 14:12) nausea and vomiting Medication List - Last Reconciled 11/23/23 by Max Dueñas MD albuterol sulfate 90 mcg/actuation 1 puff inhalation QID PRN 30 days aspirin 81 mg PO DAILY 90 days atorvastatin 80 mg PO DAILY 90 days budesonide-formoterol 160-4.5 mcg/actuation (Symbicort) 2 puffs inhalation BID 30 days celecoxib (Celebrex) 200 mg PO DAILY PRN 3 months epinephrine (EpiPen 2-Keith) 0.3 mg (0.3 mL) IM Q10M PRN 90 days famotidine 20 mg PO DAILY losartan 100 mg PO DAILY 90 days meclizine 25 mg PO TID PRN nifedipine ER 30 mg PO DAILY 90 days pantoprazole 20 mg PO DAILY sennosides-docusate sodium 8.6-50 mg 1 tab-cap PO BEDTIME 90 days trazodone 200 mg (2 x 100 mg) PO ONCE 90 days venlafaxine ER 37.5 mg PO DAILY 90 days Ventolin HFA 90 mcg/actuation (albuterol sulfate) 1 inh inhalation QID PRN 30 days [facility] Medical History CAD (coronary artery disease) Environmental allergies Anxiety, generalized Chronic GERD Asthma, moderate Constipation by delayed colonic transit Lipid disorder Chronic vertigo Hypertension, essential Difficulty sleeping Surgical History Stented coronary artery History of shoulder surgery History of tooth extraction History of left oophorectomy Family History Father Myocardial infarction Mother CHF (congestive heart failure) History of back surgery Brother Acute myocardial infarction Sister Acute myocardial infarction Maternal Grandfather Colon cancer Maternal Grandmother Cancer Paternal Grandmother History of heart attack Cervical cancer Paternal Grandfather No problems noted. Maternal Uncle History of heart attack Sister No problems noted. Brother No problems noted. Brother No problems noted. Brother No problems noted. Social History Housing: Apartment Alcohol intake: current Alcohol intake frequency: a few times a week Patient Tobacco Use Status: Former Tobacco user e-Cigarette/Vaping Use: Never Used service: No Current occupational status: employed Current occupation: left handed Gender identity: Female Cognitive needs: No Hearing needs: No Vision needs: No Physical Exam Vital Signs: BMI result Body Mass Index 39.0 Const Other: Well-nourished well-developed very friendly female awake alert and oriented x3 in no acute distress Extrem Other: Bilateral lower extremity examination shows good capillary refill, no skin lesions noted, normal sensation light touch Left knee examination shows a minimal effusion, palpable crepitus with range of motion, pain with range of motion, no instability Office Procedures Joint Injection/Aspiration Joint Injection/Aspiration Primary Site: left knee Prep: site was prepped using aseptic technique Injected: 40 mg of, DepoMedrol and 1% plain lidocaine Procedure: The patient tolerated the procedure well Coding 30119 - Large joint Procedure code (CPT) selection complete Results Reviewed Results Reviewed: X-rays of the patient's left knee show joint space narrowing, subchondral sclerosis, no acute bony abnormalities Assessment & Plan Assessment & Plan (1) Arthritis of left knee: Code(s): M17.12 - Unilateral primary osteoarthritis, left knee Category: Medical Plan Ms. Cheatham presents with left knee pain due to degenerative joint disease. I had a lengthy discussion with the patient regarding the treatment options. The risks and benefits of a left knee cortisone injection were discussed at length with the patient. The patient wished to proceed. She tolerated the injection well. She will continue with her home exercise program. She will follow up with me on an as-needed basis should her symptoms not plateau at an unacceptable level over the next few months. Feel free to call me at any time should questions regarding her orthopedic management arise. I spent 21 minutes in reviewing the patient's records and imaging studies, seeing the patient and documenting in the medical record. Orders: Orders AMB Joint Injection/Aspiration Today M17.12 - Unilateral primary osteoarthritis, left knee Coding Level of Care Code Est Pt Level 3 (02527) Diagnoses Arthritis of left knee M17.12 CPT Codes Coding - 70423 Large joint: 32220 - Large joint ([id number])
[2023-11-23 09:53] VITALS: BMI 39.0
== END 2023-11-23 10:12 | disposition home or self-care (01) ==
PROVIDERS: PCP Internal Medicine; Visit Provider Orthopaedic Surgery
DX: M17.12 Unilateral primary osteoarthritis, left knee (principal)
CPT/HCPCS: 20610; 99213

== ENCOUNTER → 2023-11-23 09:40 | Outpatient (BNVA) | payer OTHER, SELFPAY | PROVIDERS: PCP Internal Medicine; Visit Provider Orthopaedic Surgery | DX: M17.12 Unilateral primary osteoarthritis, left knee (principal) | CPT/HCPCS: 20610; 99212; J1010 ==

== ENCOUNTER 2023-12-03 10:47 | Outpatient (AMB) | payer OTHER, SELFPAY ==
[2023-12-03 10:53] VITALS: BP 122/78; PULSE 85; O2SAT 98; BMI 39.5
--- NOTE | 2023-12-03 10:53 | MHC.PC.OV ---
Vital Signs 12/03/23 10:53 Height 5 ft 2 in Weight 216 lb 2 oz BMI 39.5 BP 122/78 Blood Pressure Location Lt brachial Position Sitting Pulse 85 Pulse Source Pulse Oximeter Pulse Oximetry (%) 98 Oxygen Delivery Method Room Air Intake Visit Reasons: AnnualPE Allergies bee pollen [BEE STINGS] Allergy (Severe, Verified 12/03/23 10:55) ANAPHYLAXIS spider venom [SPIDER BITES] Allergy (Mild, Verified 12/03/23 10:55) SWELLING acetaminophen [Vicodin] Allergy (Unknown, Verified 12/03/23 10:55) nausea and vomiting hydrocodone [Vicodin] Allergy (Unknown, Verified 12/03/23 10:55) nausea and vomiting Medication List - Last Reconciled 12/03/23 by Dee Joseph MD albuterol sulfate 90 mcg/actuation 1 puff inhalation QID PRN 30 days aspirin 81 mg PO DAILY 90 days atorvastatin 80 mg PO DAILY 90 days budesonide-formoterol 160-4.5 mcg/actuation (Symbicort) 2 puffs inhalation BID 30 days celecoxib (Celebrex) 200 mg PO DAILY PRN 3 months epinephrine (EpiPen 2-Keith) 0.3 mg (0.3 mL) IM Q10M PRN 90 days famotidine 20 mg PO DAILY losartan 100 mg PO DAILY 90 days nifedipine ER 30 mg PO DAILY 90 days pantoprazole 20 mg PO DAILY sennosides-docusate sodium 8.6-50 mg 1 tab-cap PO BEDTIME 90 days trazodone 200 mg (2 x 100 mg) PO ONCE 90 days venlafaxine ER 37.5 mg PO DAILY 90 days Ventolin HFA 90 mcg/actuation (albuterol sulfate) 1 inh inhalation QID PRN 30 days NS Tobacco use date assessed: 12/03/23 Dental Screening Dental Screen Date: 12/03/23 Did you have a dental visit in the last 12 months?: Yes Did you have a dental problem in the last 6 months where you did not have access to dental care?: No Was dental information given to patient?: Patient has dentist HPI AnnualPE HPI Details Patient is 58-year-old female came in today for physical examination Patient is requesting a referral to audiology, she need an updated hearing test Also complaining of daytime somnolence, tells me that she snores really loud, as per I have ordered home sleep study with the patient She is having strong odor in her urine, we did the urinalysis which is positive for 3+ leuk esterase Macrobid sent for 5 days to be taken b.i.d. Patient also suffers from osteoarthritis and recently had cortisone injection right knee which is now mobile She does not want to have mammogram or Pap smears Colonoscopy was in 2014 she will be due for updated colonoscopy next year Medication list reviewed the only medication coming from orthopedic is Celebrex All other medications come in from PCP office BMI continued to be elevated, patient is having difficulty losing weight Patient is to return in 3 months for follow-up [facility] Medical History CAD (coronary artery disease) Environmental allergies Anxiety, generalized Chronic GERD Asthma, moderate Constipation by delayed colonic transit Lipid disorder Chronic vertigo Hypertension, essential Difficulty sleeping Surgical History Stented coronary artery History of shoulder surgery History of tooth extraction History of left oophorectomy Family History Father Myocardial infarction Mother CHF (congestive heart failure) History of back surgery Brother Acute myocardial infarction Sister Acute myocardial infarction Maternal Grandfather Colon cancer Maternal Grandmother Cancer Paternal Grandmother History of heart attack Cervical cancer Paternal Grandfather No problems noted. Maternal Uncle History of heart attack Sister No problems noted. Brother No problems noted. Brother No problems noted. Brother No problems noted. Social History Housing: Apartment Alcohol intake: current Alcohol intake frequency: a few times a week Patient Tobacco Use Status: Former Tobacco user e-Cigarette/Vaping Use: Never Used service: No Current occupational status: employed Current occupation: left handed Gender identity: Female Cognitive needs: No Hearing needs: No Vision needs: No Questionnaire PHQ-9 Over the last 2 weeks, how often have you been bothered by any of the following problems? 1. Little interest or pleasure in doing things: not at all 2. Feeling down, depressed, or hopeless: not at all 3. Trouble falling or staying asleep, or sleeping too much: nearly every day 4. Feeling tired or having little energy: more than half the days 5. Poor appetite or overeating: not at all 6. Feeling bad about yourself - or that you are a failure or have let yourself or your family down: not at all 7. Trouble concentrating on things, such as reading the newspaper or watching television: not at all 8. Moving or speaking so slowly that other people could have noticed. Or the opposite - being so fidgety or restless that you have been moving around a lot more than usual: not at all 9. Thoughts that you would be better off or of hurting yourself in some way: not at all Total score: 5 Depression Screening Interpretation: Negative Depression Screening Done: Yes 38710 - PHQ-9 Billing: Yes Source: Developed by Drs. Rylan Carroll, Amada Callejas, Get Johnston and colleagues, with an educational javier from [employer]. Thrive Questionnaire Date Thrive assessed: 12/03/23 I am a: Patient What is your living situation today?: I have a steady place to live Within the past 12 months, did the food you bought not last and you didn't have the money to get more?: Never true Within the past 12 months, did you worry whether your food would run out before you got money to buy more?: Never true Do you have trouble paying for medicines?: No Do you have trouble getting transportation to medical appointments?: No Do you have trouble paying your heating and electricity bill?: No Do you have trouble taking care of your child, family member or friend?: No Do you have trouble with day-to-day activities such as bathing, preparing meals, shopping, managing finances, etc.?: No Are you currently unemployed and looking for a job?: Yes Are you interested in more education?: No Please select the resources that you would like help with: Job search/training Currently or been in a relationship where the following occur: No concerns reported THRIVE Score: 0 AUDIT C Alcohol Use Questionnaire (AUDIT-C) 1. How often do you have a drink containing alcohol?: Monthly or less 2. How many drinks containing alcohol do you have on a typical day when you are drinking?: 1 or 2 3. How often do you have six or more drinks on one occasion?: Never Total Score: 1 Score Reviewed/Action Taken: Yes DENA-7 AMB Questionnaire DENA-7 Date DENA - 7 assessed: 12/03/23 Feeling nervous, anxious, or on edge: 0 = Not at all Not being able to stop or control worryin = Not at all Worrying too much about different things: 0 = Not at all Trouble relaxin = Not at all Being so restless that it is hard to sit still: 0 = Not at all Becoming easily annoyed or irritable: 0 = Not at all Feeling afraid as if something awful might happen: 0 = Not at all Total DENA-7 score (0-4 normal; 5-9 mild; 10-14 moderate; 15-21 severe): 0 Source: Developed by Drs. Rylan Carroll, Amada Callejas, Get Johnston and colleagues, with an educational javier from [employer]. DENA-7 Assessment Billing DENA-7 Assessment Tool: DENA-7 Assessment 58708 Review of Systems Const Denies chills, Denies fever(s) and Denies headache(s) Eyes Denies blurry vision ENT Denies headache(s), Denies nasal discharge, Denies nasal obstruction, Denies odynophagia and Denies sinus pain Card Denies chest pain at rest and Denies chest pain with activity Resp Denies cough and Denies hemoptysis GI Denies diarrhea, Denies odynophagia, Denies vomiting and Denies hematemesis Reports as per HPI Musc Denies abnormal gait Skin/Breast Reports as per HPI Neuro Denies Neuro-related abnormal movements, Denies Abnormal speech present, Denies abnormal gait, Denies headache(s) and Denies Sensory deficit (Neuro) Psych Denies mood swings and Denies paranoia Endo Reports as per HPI Arnaldo/Lymph Reports as per HPI Aller/Immun Reports as per HPI Physical exam (Primary Care) Vital Signs: Last Vital Signs Pulse 85 12/03/23 10:53 BP 122/78 12/03/23 10:53 Pulse Ox 98 12/03/23 10:53 Oxygen Delivery Method Room Air 12/03/23 10:53 BMI result Body Mass Index 39.5 Tobacco/Smoking Status: Tobacco use Status Tobacco use date assessed 12/03/23 12/03/23 10:57 Patient Tobacco Use Status Former Tobacco user 12/03/23 10:57 e-Cigarette/Vaping Use Never Used 12/03/23 10:57 PHQ-9: PHQ-9 Score PHQ-9: Total score 5 12/03/23 11:22 Depression Screening Interpretation: Negative Thrive Assessment: Date of Thrive Assessment Date Thrive assessed 12/03/23 12/03/23 10:57 Currently or been in a relationship where the following occur: No concerns reported Const General: cooperative, comfortable and no acute distress Orientation/consciousness: patient oriented x3 HENMT Head: Yes normocephalic and Yes atraumatic Eyes General: appearance normal, both eyes and all related structures Pupils: Equal, round and reactive pupils present EOM: EOMs intact bilaterally Neck Neck: Yes supple and No lymphadenopathy Thyroid: Thyroid normal Lymphatic: no lymphadenopathy noted Chest Other: Breast exam declined Resp Effort & Inspection: normal respiratory effort and able to speak in complete sentences Auscultation: clear to auscultation bilaterally Cardio Heart sounds: S1 normal heart sound present and S2 normal heart sound present GI Palpation (GI): Soft to palpation and nontender Auscultation: normal bowel sounds General: Yes no CVA tenderness Back/Spine/Pelvis Back: no CVA tenderness Skin General skin exam: elasticity normal and turgor normal Neuro Other: Patient was not able to tandem walk General: patient oriented x3 and gait normal Cranial nerves: Yes Equal, round and reactive pupils present Speech: No Abnormal speech present Sensory Exam: No Sensory deficit (Neuro) Extrem Other: Left knee with limited range of motion General: Yes normal exam except as noted and No edema Results AMB Urinalysis, Automated UA Leukoctes 500 Clinton/uL Last Edit by ODIN Yu on 12/03/23 11:03 UA Nitrite Positive Last Edit by ODIN Yu on 12/03/23 11:03 UA Urobilinogen 0.2 mg/dL Last Edit by ODIN Yu on 12/03/23 11:03 UA Protein 15 mg/dL Last Edit by ODIN Yu on 12/03/23 11:03 UA pH 6.0 Last Edit by ODIN Yu on 12/03/23 11:03 UA Blood 25 Krunal/uL Last Edit by ODIN Yu on 12/03/23 11:03 UA Specific Harrington 1.015 Last Edit by Davon [facility] on 12/03/23 11:03 UA Ketone Negative Last Edit by Davon Cohen [facility] on 12/03/23 11:03 UA Bilirubin 0 mg/dL Last Edit by Davon [facility] on 12/03/23 11:03 UA Glucose 0 mg/dL Last Edit by Davon Cohen [facility] on 12/03/23 11:03 Results Reviewed Results Reviewed: Laboratory Last Values Urine pH (Auto) 6.0 12/03/23 11:02 Specific Harrington (Auto) 1.015 12/03/23 11:02 Urine Protein (Auto) 15 mg/dL 12/03/23 11:02 Glucose (UA)(Auto) 0 mg/dL 12/03/23 11:02 Urine Ketones (Auto) Negative 12/03/23 11:02 Urine Blood (Auto) 25 Krunal/uL 12/03/23 11:02 Urine Nitrite (Auto) Positive 12/03/23 11:02 Urine Bilirubin (Auto) 0 mg/dL 12/03/23 11:02 Urine Urobilinogen (Auto) 0.2 mg/dL 12/03/23 11:02 Leukocyte Esterase (Auto) 500 Clinton/uL 12/03/23 11:02 Assessment and Plan Assessment & Plan (1) Encounter for general adult medical examination with abnormal findings: Code(s): Z00.01 - Encounter for general adult medical examination with abnormal findings (2) Urinary tract infection: Code(s): N39.0 - Urinary tract infection, site not specified Qualifiers: Hematuria presence: with hematuria Urinary tract infection type: acute cystitis Qualified Code(s): N30.01 - Acute cystitis with hematuria (3) Daytime somnolence: Code(s): R40.0 - Somnolence (4) Hypertension, essential: Code(s): I10 - Essential (primary) hypertension (5) Asthma, moderate: Code(s): J45.909 - Unspecified asthma, uncomplicated Qualifiers: Asthma complication type: uncomplicated Asthma persistence: persistent Qualified Code(s): J45.40 - Moderate persistent asthma, uncomplicated (6) Lipid disorder: Code(s): E78.9 - Disorder of lipoprotein metabolism, unspecified (7) Snoring: Code(s): R06.83 - Snoring (8) Morbid obesity due to excess calories: Code(s): E66.01 - Morbid (severe) obesity due to excess calories (9) Hearing difficulty: Code(s): H91.90 - Unspecified hearing loss, unspecified ear Qualifiers: Laterality: bilateral Qualified Code(s): H91.93 - Unspecified hearing loss, bilateral (10) Environmental allergies: Code(s): Z91.09 - Other allergy status, other than to drugs and biological substances (11) Anxiety, generalized: Code(s): F41.1 - Generalized anxiety disorder (12) Chronic GERD: Code(s): K21.9 - Gastro-esophageal reflux disease without esophagitis (13) Stented coronary artery: Comment: 2017, drug-eluting stent to mid RCA for symptoms of exertional shortness of breath and abnormal stress test. Subsequent cardiac catheterization in two stents and mild diffuse coronary artery disease P Code(s): Z95.5 - Presence of coronary angioplasty implant and graft (14) Mammogram declined: Code(s): Z53.20 - Procedure and treatment not carried out because of patient's decision for unspecified reasons (15) Papanicolaou smear declined: Code(s): Z53.20 - Procedure and treatment not carried out because of patient's decision for unspecified reasons (16) Abnormal tandem walk: Code(s): R26.9 - Unspecified abnormalities of gait and mobility Plan Patient is 58-year-old female came in today for physical examination Patient is requesting a referral to audiology, she need an updated hearing test Also complaining of daytime somnolence, tells me that she snores really loud, as per I have ordered home sleep study with the patient She is having strong odor in her urine, we did the urinalysis which is positive for 3+ leuk esterase Macrobid sent for 5 days to be taken b.i.d. Patient also suffers from osteoarthritis and recently had cortisone injection right knee which is now mobile She does not want to have mammogram or Pap smears Colonoscopy was in 2014 she will be due for updated colonoscopy next year Medication list reviewed the only medication coming from orthopedic is Celebrex All other medications come in from PCP office BMI continued to be elevated, patient is having difficulty losing weight Patient is to return in 3 months for follow-up Orders: Orders RT home sleep study Today E66.01 - Morbid (severe) obesity due to excess calories, R06.83 - Snoring, R40.0 - Somnolence Urine Culture Today N30.01 - Acute cystitis with hematuria AMB Urinalysis Automated Today Z13.9 - Encounter for screening, unspecified Referrals Audiology Referral H91.90 - Unspecified hearing loss, unspecified ear Medications: New nitrofurantoin monohyd/m-cryst 100 mg (Macrobid) must administer with a meal/food 100 mg PO Q12H 10 caps 0RF 5 days Coding Level of Care Code Est Pt Level 4 (67001) Est Pt Prev Care 40-64y(74550) Diagnoses Encounter for general adult medical examination with abnormal findings Z00.01 Acute cystitis with hematuria N30.01 Hematuria presence: with hematuria Urinary tract infection type: acute cystitis Daytime somnolence R40.0 Hypertension, essential I10 Moderate persistent asthma without complication J45.40 Asthma complication type: uncomplicated Asthma persistence: persistent Lipid disorder E78.9 Snoring R06.83 Morbid obesity due to excess calories E66.01 Hearing difficulty of both ears H91.93 Laterality: bilateral Environmental allergies Z91.09 Anxiety, generalized F41.1 Chronic GERD K21.9 Stented coronary artery Z95.5 Mammogram declined Z53.20 Papanicolaou smear declined Z53.20 Abnormal tandem walk R26.9 Additional Codes DENA-7 Assessment Billing - DENA-7 Assessment Tool: DENA-7 Assessment [id number] ([id number])
== END 2023-12-03 11:18 | disposition home or self-care (01) ==
PROVIDERS: PCP Internal Medicine; Visit Provider Internal Medicine
DX: Z00.01 Encounter for general adult medical examination with abnormal findings (principal); N30.01 Acute cystitis with hematuria; Z68.39 Body mass index [BMI] 39.0-39.9, adult; E66.01 Morbid (severe) obesity due to excess calories; R40.0 Somnolence; I10 Essential (primary) hypertension; J45.40 Moderate persistent asthma, uncomplicated; E78.9 Disorder of lipoprotein metabolism, unspecified; R06.83 Snoring; H91.93 Unspecified hearing loss, bilateral; Z91.09 Other allergy status, other than to drugs and biological substances; F41.1 Generalized anxiety disorder
CPT/HCPCS: 81003; 99214; 99396

== ENCOUNTER 2023-12-03 11:21 | Outpatient (REF) | payer OTHER, SELFPAY ==
[2023-12-03 13:16] LABS: MANUAL DIFF FLAG NO
[2023-12-03 13:38] LABS: Basophils Absolute Auto 0.1 X10*3/uL (0.0-0.2); Basophils Percent Auto 0.6 % (0-2); Eosinophils Absolute Auto 0.2 X10*3/uL (0.0-0.4); Eosinophils Percent Auto 1.4 % (0-4); Hematocrit 45.2 % (37.0-47.0); Hemoglobin 15.1 g/dl (12.0-16.0); Imm Gran Abs Auto 0.05 X10*3/uL (0.00-0.03); Imm Gran Pct Auto 0.5 % (0.0-0.4); Lymphocytes Absolute Auto 1.6 X10*3/uL (1.2-4.9); Lymphocytes Percent Auto 14.3 % (20-40); Mean Corpuscular HGB Conc 33.4 g/dl (31.0-35.0); Mean Corpuscular Hemoglobin 30.6 pg (27.0-33.0); Mean Corpuscular Volume 91.5 fL (80.0-98.0); Mean Platelet Volume 10.4 fL (9.4-12.3); Monocytes Absolute Auto 0.8 X10*3/uL (0.1-1.2); Monocytes Percent Auto 7.4 % (2-11); Neutrophils Absolute Auto 8.3 x10*3/uL (2.0-8.3); Neutrophils Percent Auto 75.8 % (45-73); Platelet Count 214 X10*3/uL (160-400); Red Blood Count 4.94 X10*6/uL (4.20-5.50); Red Cell Distribution Width 14.2 % (11.0-16.0)
[2023-12-03 13:59] LABS: Alanine Aminotransferase 17 U/L (0-31); Albumin Level 3.6 g/dL (3.5-5.0); Alkaline Phosphatase 74 U/L (39-117); Anion Gap 10 (12-20); Aspartate Amino Transferase 13 U/L (5-31); Bilirubin Total 0.9 mg/dL (0.0-1.0); Blood Urea Nitrogen 11 mg/dL (9-16); Calcium 9.4 mg/dL (8.4-10.2); Carbon Dioxide 30 mmol/L (22-29); Chloride 108 mmol/L (96-108); Estimated Glomerular Filt Rate > 60; Glucose Random 106 mg/dL (60-115); Potassium 3.8 mmol/L (3.3-5.1); Sodium 144 mmol/L (135-145); Total Protein 6.1 g/dL (6.5-8.0)
[2023-12-05 10:23] LABS: LDL Cholesterol Direct 82 mg/dL (<100)
== END 2023-12-03 11:22 | disposition home or self-care (01) ==
LOC: HO.HMGCLDS 11:21
PROVIDERS: PCP Internal Medicine; Visit Provider Internal Medicine
DX: F41.1 Generalized anxiety disorder (principal); K21.9 Gastro-esophageal reflux disease without esophagitis; J45.40 Moderate persistent asthma, uncomplicated; E78.9 Disorder of lipoprotein metabolism, unspecified; I10 Essential (primary) hypertension; G47.9 Sleep disorder, unspecified; Z91.09 Other allergy status, other than to drugs and biological substances; N30.01 Acute cystitis with hematuria; Z13.9 Encounter for screening, unspecified
CPT/HCPCS: 36415; 80053; 83721; 85025; 87086; 87088; 87186

== ENCOUNTER 2023-12-14 15:12 | Outpatient (REF) | payer OTHER, SELFPAY ==
--- NOTE | 2023-12-15 09:44 | MHC.AU.HA1 ---
Hearing Aid Evaluation Date of Visit: 12/14/23 Historical Information: Description of Hearing: Mild to moderate sensorineural hearing loss. Current personal amplification information, if applicable: Previously wore Phonak Audeo M50 13 T HAs, both lost and out of warranty. Summary: Majo is seen for evaluation today, see audiogram. Reports losing both hearing aids a couple months ago while on vacation. She reports communication is frustrating without them. Both aids are out of warranty and cannot be replaced with loss and damage policy at this time. Discussed options for replacing aids. Majo reports good satisfaction with her previous pair. Reports batteries worked well for her. Would like to proceed with similar style. Prior approval needed from insurance as it has been under five years since dispensing of last pair. Hearing Aid Prescription: Based on the individual?s shared listening needs, communication environments, dexterity, desire for connectivity, and personal preferences, the following prescription for amplification has been made: Right ear: Make, Model, Color: Phonak Audeo P 13 T Battery Size: 13 General Foreman/Slim Tube: 2M Type of Earmold/Dome/CShell/SlimTip: sm vented Left ear: Make, Model, Color: Phonak Audeo P 13 T Battery Size: 13 General Foreman/Slim Tube: 2M Type of Earmold/Dome/CShell/SlimTip: sm vented Plan of Care: Patient wishes to purchase hearing aids as prescribed Action Taken/Action Needed: Prior authorization to be requested Medical Clearance to be requested from PCP/ENT Hearing Instrument Fitting to be scheduled when materials arrive Primary Diagnosis: H90.3 Bilateral Sensorineural Hearing Loss Signature: Provider: Jalil Mireles, [facility]3]-A
== END 2023-12-14 15:13 | disposition home or self-care (01) ==
LOC: HO.SH 15:12
PROVIDERS: Visit Provider Internal Medicine
DX: Z01.118 Encounter for examination of ears and hearing with other abnormal findings (principal); H90.3 Sensorineural hearing loss, bilateral
CPT/HCPCS: 92552; 92556

== ENCOUNTER → 2024-01-18 16:00 | Outpatient (BNV) | payer OTHER, SELFPAY | PROVIDERS: PCP Internal Medicine; Visit Provider Internal Medicine | DX: R06.83 Snoring (principal); G47.10 Hypersomnia, unspecified | CPT/HCPCS: 95806 ==

== ENCOUNTER → 2024-01-18 16:09 | Outpatient (REF) | payer OTHER, SELFPAY | LOC: HO.SL 16:09 | PROVIDERS: PCP Internal Medicine; Visit Provider Internal Medicine | DX: R40.0 Somnolence (principal); R06.83 Snoring; E66.01 Morbid (severe) obesity due to excess calories | CPT/HCPCS: 95806 ==

== ENCOUNTER 2024-04-03 15:11 | Outpatient (REF) | payer OTHER, SELFPAY ==
--- NOTE | 2024-04-03 15:53 | MHC.AU.HA2 ---
Hearing Instrument Fitting- Adult- Binaural Date of Visit: 04/03/24 Hearing Instruments Dispensed: Right Ear: Make, Model, Color, Serial Number: Phonak Audeo P 13 T Roxane Hood S#[id number] Patroller Repair Warranty: 02/17/2027 Patroller Loss and Damage Warranty: 02/17/2027 [facility] Service Plan: 04/03/2025 Battery Size: 13 Fine Grade Operator/Slim Tube: 2M Earmold/Dome/CShell/SlimTip: sm vented Type of Wax Guard: cerustop Left Ear: Make, Model, Color, Serial Number: Landon Fengeo P 13 T Roxane Hood [id number] Patroller Repair Warranty: 02/17/2027 Patroller Loss and Damage Warranty: 02/17/2027 [facility] Service Plan: 04/03/2025 Battery Size: 13 Fine Grade Operator/Slim Tube: 2M Earmold/Dome/CShell/SlimTip: sm vented Type of Wax Guard: cerustop Accessories/Assistive Technology: Summary of Fitting: Fit with and oriented to binaural Phonak Audeo P 13 T HAs. Verified to DSL 5 adult targets. Ran feedback management. Good subjective comfort and benefit. Previous user, has been without aids for a few months after losing them. Reviewed batteries, maintenance, precautions. VC enabled. Not paired with a phone at this time. Recommendations: Recommendations: Hearing instrument care and maintenance were discussed and practiced. A hearing instrument follow-up was scheduled. Diagnosis Code(s): Primary Diagnosis: H90.3 Bilateral Sensorineural Hearing Loss Signature: Provider: Jalil Mireles, [facility]
== END 2024-04-03 15:12 | disposition home or self-care (01) ==
LOC: HO.HAP 15:11
PROVIDERS: Visit Provider Internal Medicine
DX: Z46.1 Encounter for fitting and adjustment of hearing aid (principal); H90.3 Sensorineural hearing loss, bilateral
CPT/HCPCS: V5011; V5020; V5160; V5261; V5266

== ENCOUNTER 2024-04-04 10:53 | Outpatient (AMB) | payer OTHER, SELFPAY ==
[2024-04-04 10:55] VITALS: BP 134/76; PULSE 74; O2SAT 96; BMI 39.7
--- NOTE | 2024-04-04 10:55 | A.OFFPC_ITS ---
Vital Signs 04/04/24 10:55 Height 5 ft 2 in Weight 217 lb 2 oz BMI 39.7 BP 134/76 Blood Pressure Location Rt brachial Position Sitting Pulse 74 Pulse Source Pulse Oximeter Pulse Oximetry (%) 96 Oxygen Delivery Method Room Air Intake Visit Reasons: 3 Month f/u Allergies bee pollen [BEE STINGS] Allergy (Severe, Verified 04/04/24 10:56) ANAPHYLAXIS spider venom [SPIDER BITES] Allergy (Mild, Verified 04/04/24 10:56) SWELLING acetaminophen [Vicodin] Allergy (Unknown, Verified 04/04/24 10:56) nausea and vomiting hydrocodone [Vicodin] Allergy (Unknown, Verified 04/04/24 10:56) nausea and vomiting Medication List - Last Reconciled 04/04/24 by Dee Joseph MD albuterol sulfate 90 mcg/actuation 1 puff inhalation QID PRN 30 days aspirin 81 mg PO DAILY 90 days atorvastatin 80 mg PO DAILY 90 days budesonide-formoterol 160-4.5 mcg/actuation (Symbicort) 2 puffs inhalation BID 30 days celecoxib (Celebrex) 200 mg PO DAILY PRN 3 months epinephrine (EpiPen 2-Keith) 0.3 mg (0.3 mL) IM Q10M PRN 90 days famotidine 20 mg PO DAILY losartan 100 mg PO DAILY 90 days nifedipine ER 30 mg PO DAILY 90 days pantoprazole 20 mg PO DAILY sennosides-docusate sodium 8.6-50 mg 1 tab-cap PO BEDTIME 90 days trazodone 200 mg (2 x 100 mg) PO ONCE 90 days venlafaxine ER 37.5 mg PO DAILY 90 days Ventolin HFA 90 mcg/actuation (albuterol sulfate) 1 inh inhalation QID PRN 30 days NS Tobacco use date assessed: 04/04/24 Dental Screening Dental Screen Date: 04/04/24 Did you have a dental visit in the last 12 months?: Yes Did you have a dental problem in the last 6 months where you did not have access to dental care?: No Was dental information given to patient?: Patient has dentist HPI 3 Month f/u HPI Details Chief Complaint Patient presents for routine follow-up and evaluation of sleep study. Assessment and Plan 58-year-old female with a history of ess ential hypertension, GERD, osteoarthritis of the knee, and suspected obstructive sleep apnea presenting for a regular follow-up appointment. The primary focus of today's visit was to review the sleep study results, which indicated nocturnal hypoxemia with a drop in oxygen saturation to as low as 82%. There was no significant evidence of obstructive sleep apnea; however, excessive snoring was noted. The patient also has a history of major depressive disorder and insomnia, currently stable. Review of systems indicates well-controlled hypertension and GERD, with knee pain likely related to osteoarthritis. Her sleep-related breathing concerns and hypoxemia necessitate further evaluation by a lab engineer. 1. Insomnia Patient reports good sleep quality with current management. Continue trazodone 200 mg at night. 2. Essential Hypertension Blood pressure is well controlled at 134/76 mmHg. Continue losartan 100 mg and nifedipine 30 mg with regular monitoring. 3-GERD stable 4-depression anxiety stable 5-constipation stable with the help of [employer] 6. Major Depressive Disorder Depression is stable. Continue management with existing treatment regimen. No changes required at this time. 7-BMI elevated patient is having difficu lty losing weight Diagnostic results - Sleep study: No significant evidence o f obstructive sleep apnea; noted nocturnal hypoxemia with oxygen saturation drop to 82%. Problem List - Essential Hypertension - Gastroesophageal Reflux Disease (GERD) - Major Depressive Disorder - Insomnia - Osteoarthritis of the Knee - Suspected Obstructive Sleep Apnea - Nocturnal Hypoxemia - obesity Medications - Aspirin - Atorvastatin 80 mg - Symbicort inhaler - Celebrex for knee pain - pantoprazole for GERD - Losartan 100 mg - Nifedipine 30 mg - Trazodone 200 mg at night - Senna for constipation Health Maintenance - Kidney function and liver enzymes are within normal limits. - Review of sleep study results; no need for continuous positive airway pressure (CPAP) machine at this time. [place] of Care: Referred to medical affairs specialist Also established with orthopedic Patient Instructions - Continue current medications as prescr ibed. - Follow up with orthopedics today for k nee swelling and potential injection. - Ensure pharmacy is contacted for any m edication refills. - Appointment with lab engineer to be a rranged for further evaluation of nocturnal hypoxemia?consider timing with work schedule to allow for adequate notice. - Maintain current lifestyle and return for follow-up in three months. - Notify the office if symptoms change o r new concerns arise. [facility] Medical History CAD (coronary artery disease) Environmental allergies Anxiety, generalized Chronic GERD Asthma, moderate Constipation by delayed colonic transit Lipid disorder Chronic vertigo Hypertension, essential Difficulty sleeping Surgical History Stented coronary artery History of shoulder surgery History of tooth extraction History of left oophorectomy Family History Father Myocardial infarction Mother CHF (congestive heart failure) History of back surgery Brother Acute myocardial infarction Sister Acute myocardial infarction Maternal Grandfather Colon cancer Maternal Grandmother Cancer Paternal Grandmother History of heart attack Cervical cancer Paternal Grandfather No problems noted. Maternal Uncle History of heart attack Sister No problems noted. Brother No problems noted. Brother No problems noted. Brother No problems noted. Social History Housing: Apartment Alcohol intake: current Alcohol intake frequency: a few times a week Patient Tobacco Use Status: Former Tobacco user e-Cigarette/Vaping Use: Never Used service: No Current occupational status: employed Current occupation: left handed Gender identity: Female Cognitive needs: No Hearing needs: No Vision needs: No Questionnaire Thrive Questionnaire Date Thrive assessed: 04/04/24 I am a: Patient What is your living situation today?: I have a steady place to live Within the past 12 months, did the food you bought not last and you didn't have the money to get more?: Never true Within the past 12 months, did you worry whether your food would run out before you got money to buy more?: Never true Do you have trouble paying for medicines?: No Do you have trouble getting transportation to medical appointments?: No Do you have trouble paying your heating and electricity bill?: No Do you have trouble taking care of your child, family member or friend?: No Do you have trouble with day-to-day activities such as bathing, preparing meals, shopping, managing finances, etc.?: No Are you currently unemployed and looking for a job?: Yes Are you interested in more education?: No Please select the resources that you would like help with: Job search/training Currently or been in a relationship where the following occur: No concerns reported THRIVE Score: 0 AUDIT C Alcohol Use Questionnaire (AUDIT-C) 1. How often do you have a drink containing alcohol?: Monthly or less 2. How many drinks containing alcohol do you have on a typical day when you are drinking?: 1 or 2 3. How often do you have six or more drinks on one occasion?: Never Total Score: 1 Score Reviewed/Action Taken: Yes DENA-7 AMB Questionnaire DENA-7 Date DENA - 7 assessed: 12/03/23 Source: Developed by Drs. Rylan Carroll, Amada Callejas, Get Johnston and colleagues, with an educational javier from [employer]. Review of Systems Const Denies chills and Denies fever(s) ENT Denies epistaxis and Denies nasal discharge Card Denies chest pain Resp Denies chest congestion, Denies cough and Denies hemoptysis GI Denies diarrhea and Denies nausea Skin/Breast Denies rash Neuro Reports no additional complaints Psych Reports no additional complaints Endo Reports no additional complaints Physical exam (Primary Care) Vital Signs: Last Vital Signs Pulse 74 04/04/24 10:55 BP 134/76 04/04/24 10:55 Pulse Ox 96 04/04/24 10:55 Oxygen Delivery Method Room Air 04/04/24 10:55 BMI result Body Mass Index 39.7 Tobacco/Smoking Status: Tobacco use Status Tobacco use date assessed 04/04/24 04/04/24 10:56 Patient Tobacco Use Status Former Tobacco user 04/04/24 10:56 e-Cigarette/Vaping Use Never Used 04/04/24 10:56 Thrive Assessment: Date of Thrive Assessment Date Thrive assessed 04/04/24 04/04/24 11:02 Currently or been in a relationship where the following occur: No concerns reported Const General: cooperative, comfortable and no acute distress Orientation/consciousness: patient oriented x3 HENIN Head: Yes normocephalic Eyes General: appearance normal, both eyes and all related structures Neck Neck: Yes supple Resp Effort & Inspection: normal respiratory effort, no cough and no stridor Cardio Rhythm: regular rhythm Heart sounds: S1 normal heart sound present and S2 normal heart sound present Skin General skin exam: turgor normal Neuro General: patient oriented x3, tone normal and moves all extremities Extrem Right lower extremity: no edema Left lower extremity: no edema Coding Level of Care Code Est Pt Level 4 (92788) Complex EM visit Add On G2211 Diagnoses Nocturnal hypoxia G47.34 Hypertension, essential I10 Lipid disorder E78.9 Difficulty sleeping G47.9 Environmental allergies Z91.09 Constipation by delayed colonic transit K59.01 Chronic GERD K21.9 Moderate persistent asthma without complication J45.40 Asthma persistence: persistent Asthma complication type: uncomplicated Anxiety, generalized F41.1 Morbid obesity due to excess calories E66.01 Assessment & Plan Assessment & Plan (1) Nocturnal hypoxia: Code(s): G47.34 - Idiopathic sleep related nonobstructive alveolar hypoventilation Category: Medical (2) Hypertension, essential: Code(s): I10 - Essential (primary) hypertension Category: Medical (3) Lipid disorder: Code(s): E78.9 - Disorder of lipoprotein metabolism, unspecified Category: Medical (4) Difficulty sleeping: Code(s): G47.9 - Sleep disorder, unspecified Category: Medical (5) Environmental allergies: Code(s): Z91.09 - Other allergy status, other than to drugs and biological substances Category: Medical (6) Constipation by delayed colonic transit: Code(s): K59.01 - Slow transit constipation Category: Medical (7) Chronic GERD: Code(s): K21.9 - Gastro-esophageal reflux disease without esophagitis Category: Medical (8) Asthma, moderate: Code(s): J45.909 - Unspecified asthma, uncomplicated Category: Medical Qualifiers: Asthma persistence: persistent Asthma complication type: uncomplicated Qualified Code(s): J45.40 - Moderate persistent asthma, uncomplicated (9) Anxiety, generalized: Code(s): F41.1 - Generalized anxiety disorder Category: Medical (10) Morbid obesity due to excess calories: Code(s): E66.01 - Morbid (severe) obesity due to excess calories Category: Medical Plan Chief Complaint Patient presents for routine follow-up and evaluation of sleep study. Assessment and Plan 58-year-old female with a history of essential hypertension, GERD, osteoarth ritis of the knee, and suspected obstructive sleep apnea presenting for a regular follow-up appointment. The primary focus of today's visit was to review the sleep study results, which indicated nocturnal hypoxemia with a drop in oxygen saturation to as low as 82%. There was no significant evidence of obstructive sleep apnea; however, excessive snoring was noted. The patient also has a history of major depressive disorder and insomnia, currently stable. Review of systems indicates well-controlled hypertension and GERD, with knee pain likely related to osteoarthritis. Her sleep-related breathing concerns and hypoxemia necessitate further evaluation by a lab engineer. 1. Insomnia Patient reports good sleep quality with current management. Continue trazodone 200 mg at night. 2. Essential Hypertension Blood pressure is well controlled at 134/76 mmHg. Continue losartan 100 mg and nifedipine 30 mg with regular monitoring. 3-GERD stable 4-depression anxiety stable 5-constipation stable with the help of Senokot S 6. Major Depressive Disorder Depression is stable. Continue management with existing treatment regimen. No changes required at this time. 7-BMI elevated patient is having difficulty losing weight Diagnostic results - Sleep study: No significant evidence of obstructive sleep apnea; noted nocturnal hypoxemia with oxygen saturation drop to 82%. Problem List - Essential Hypertension - Gastroesophageal Reflux Disease (GERD) - Major Depressive Disorder - Insomnia - Osteoarthritis of the Knee - Suspected Obstructive Sleep Apnea - Nocturnal Hypoxemia - obesity Medications - Aspirin - Atorvastatin 80 mg - Symbicort inhaler - Celebrex for knee pain - pantoprazole for GERD - Losartan 100 mg - Nifedipine 30 mg - Trazodone 200 mg at night - Senna for constipation Health Maintenance - Kidney function and liver enzymes are within normal limits. - Review of sleep study results; no need for continuous positive airway pressure (CPAP) machine at this time. [place] of Care: Referred to medical affairs specialist Also established with orthopedic Patient Instructions - Continue current medications as prescribed. - Follow up with orthopedics today for knee swelling and potential injection. - Ensure pharmacy is contacted for any medication refills. - Appointment with lab engineer to be arranged for further evaluation of nocturnal hypoxemia?consider timing with work schedule to allow for adequate notice. - Maintain current lifestyle and return for follow-up in three months. - Notify the office if symptoms change or new concerns arise. Orders: Referrals Pulmonology Referral G47.34 - Idiopathic sleep related nonobstructive alveolar hypoventilation
== END 2024-04-04 11:19 | disposition home or self-care (01) ==
PROVIDERS: PCP Internal Medicine; Visit Provider Internal Medicine
DX: G47.34 Idiopathic sleep related nonobstructive alveolar hypoventilation (principal); E66.01 Morbid (severe) obesity due to excess calories; Z68.39 Body mass index [BMI] 39.0-39.9, adult; I10 Essential (primary) hypertension; E78.9 Disorder of lipoprotein metabolism, unspecified; G47.9 Sleep disorder, unspecified; Z91.09 Other allergy status, other than to drugs and biological substances; K59.01 Slow transit constipation; K21.9 Gastro-esophageal reflux disease without esophagitis; J45.40 Moderate persistent asthma, uncomplicated; F41.1 Generalized anxiety disorder

== ENCOUNTER → 2024-04-04 10:53 | Outpatient (BNVA) | payer OTHER, SELFPAY | PROVIDERS: PCP Internal Medicine; Visit Provider Internal Medicine | DX: M17.0 Bilateral primary osteoarthritis of knee (principal); G47.34 Idiopathic sleep related nonobstructive alveolar hypoventilation; I10 Essential (primary) hypertension; E78.9 Disorder of lipoprotein metabolism, unspecified; G47.9 Sleep disorder, unspecified; K59.01 Slow transit constipation; K21.9 Gastro-esophageal reflux disease without esophagitis; J45.40 Moderate persistent asthma, uncomplicated; F41.1 Generalized anxiety disorder; E66.01 Morbid (severe) obesity due to excess calories; Z91.09 Other allergy status, other than to drugs and biological substances | CPT/HCPCS: 20610; 99212; J1010; J2003 ==

== ENCOUNTER 2024-04-04 14:59 | Outpatient (AMB) | payer OTHER, SELFPAY ==
--- NOTE | 2024-04-04 15:07 | A.OFFVIS_ITS ---
Vital Signs 04/04/24 15:08 Height 5 ft 2 in Weight 217 lb 2 oz BMI 39.7 Intake Visit Reasons: Bilateral knee pains Intake Note: Majo is a 58 year old female who presents with complaints of progressively worsening bilateral knee pains. She describes her pains as sharp in nature. She has had cortisone injections which gave her fairly good relief. She has also tried Tylenol and anti-inflammatory medicines which gave her minimal relief. She has done physical therapy exercises which aggravated her pain. She wishes to hold off on surgery for as long as possible. Allergies bee pollen [BEE STINGS] Allergy (Severe, Verified 04/04/24 15:08) ANAPHYLAXIS spider venom [SPIDER BITES] Allergy (Mild, Verified 04/04/24 15:08) SWELLING acetaminophen [Vicodin] Allergy (Unknown, Verified 04/04/24 15:08) nausea and vomiting hydrocodone [Vicodin] Allergy (Unknown, Verified 04/04/24 15:08) nausea and vomiting Medication List - Last Reconciled 04/04/24 by Max Dueñas MD albuterol sulfate 90 mcg/actuation 1 puff inhalation QID PRN 30 days aspirin 81 mg PO DAILY 90 days atorvastatin 80 mg PO DAILY 90 days budesonide-formoterol 160-4.5 mcg/actuation (Symbicort) 2 puffs inhalation BID 30 days celecoxib (Celebrex) 200 mg PO DAILY PRN 3 months epinephrine (EpiPen 2-Keith) 0.3 mg (0.3 mL) IM Q10M PRN 90 days famotidine 20 mg PO DAILY losartan 100 mg PO DAILY 90 days nifedipine ER 30 mg PO DAILY 90 days pantoprazole 20 mg PO DAILY sennosides-docusate sodium 8.6-50 mg 1 tab-cap PO BEDTIME 90 days trazodone 200 mg (2 x 100 mg) PO ONCE 90 days venlafaxine ER 37.5 mg PO DAILY 90 days Ventolin HFA 90 mcg/actuation (albuterol sulfate) 1 inh inhalation QID PRN 30 days [facility] Medical History CAD (coronary artery disease) Environmental allergies Anxiety, generalized Chronic GERD Asthma, moderate Constipation by delayed colonic transit Lipid disorder Chronic vertigo Hypertension, essential Difficulty sleeping Surgical History Stented coronary artery History of shoulder surgery History of tooth extraction History of left oophorectomy Family History Father Myocardial infarction Mother CHF (congestive heart failure) History of back surgery Brother Acute myocardial infarction Sister Acute myocardial infarction Maternal Grandfather Colon cancer Maternal Grandmother Cancer Paternal Grandmother History of heart attack Cervical cancer Paternal Grandfather No problems noted. Maternal Uncle History of heart attack Sister No problems noted. Brother No problems noted. Brother No problems noted. Brother No problems noted. Social History Housing: Apartment Alcohol intake: current Alcohol intake frequency: a few times a week Patient Tobacco Use Status: Former Tobacco user e-Cigarette/Vaping Use: Never Used service: No Current occupational status: employed Current occupation: left handed Gender identity: Female Cognitive needs: No Hearing needs: No Vision needs: No Physical Exam Vital Signs: BMI result Body Mass Index 39.7 Const Other: Well-nourished well-developed very friendly female awake alert and oriented x3 in no acute distress Extrem Other: Bilateral lower extremity examination shows good capillary refill, no skin lesions noted, normal sensation light touch Bilateral knee examination shows minimal effusions, palpable crepitus with range of motion, pain with range of motion, range of motion from -3 degrees to 120 degrees, no instability Office Procedures AMB Joint Injection/Aspiration Joint Injection/Aspiration Primary Site: left knee Prep: site was prepped using aseptic technique Injected: 40 mg of, DepoMedrol and 1% plain lidocaine Procedure: The patient tolerated the procedure well Coding 02451 - Large joint Procedure code (CPT) selection complete AMB Joint Injection/Aspiration Joint Injection/Aspiration Primary Site: right knee Prep: site was prepped using aseptic technique Injected: 40 mg of, DepoMedrol and 1% plain lidocaine Procedure: The patient tolerated the procedure well Coding 67441 - Large joint Procedure code (CPT) selection complete Assessment & Plan Assessment & Plan (1) Arthritis of left knee: Code(s): M17.12 - Unilateral primary osteoarthritis, left knee Category: Medical (2) Arthritis of right knee: Code(s): M17.11 - Unilateral primary osteoarthritis, right knee Category: Medical Plan Ms. Cheatham presents with bilateral knee pains due to degenerative joint disease. I had a lengthy discussion with the patient regarding the treatment options. The risks and benefits of bilateral knee cortisone injections were discussed at length with the patient. The patient wished to proceed. She tolerated the injections well. She will continue with her activity modifications. She will contact me prior to her follow-up appointment in 3 months should any questions or concerns arise. Feel free to call me at any time should questions regarding her orthopedic management arise. I spent 21 minutes in reviewing the patient's records and imaging studies, seeing the patient and documenting in the medical record. Orders: Orders AMB Joint Injection/Aspiration Today M17.12 - Unilateral primary osteoart hritis, left knee AMB Joint Injection/Aspiration Today M17.11 - Unilateral primary osteoarthritis, right knee Coding Level of Care Code Est Pt Level 3 (87329) Complex EM visit Add On G2211 Diagnoses Arthritis of left knee M17.12 Arthritis of right knee M17.11 CPT Codes Coding - 15309 Large joint: 16072 - Large joint ([id number]) Coding - 39716 Large joint: 32386 - Large joint ([id number])
[2024-04-04 15:08] VITALS: BMI 39.7
== END 2024-04-04 15:49 | disposition home or self-care (01) ==
PROVIDERS: PCP Internal Medicine; Visit Provider Orthopaedic Surgery
DX: M17.0 Bilateral primary osteoarthritis of knee (principal)
CPT/HCPCS: 20610; 99213

== ENCOUNTER 2024-06-01 13:22 | Inpatient (IN) | payer OTHER, SELFPAY ==
[2024-06-01] VITALS (8 sets, daily range): BP systolic 135–172; BP diastolic 60–76; PULSE 79–118; RESP 18–34; TEMP 36.6–37.4; O2SAT 93–99; BMI 38.4
--- NOTE | 2024-06-01 | ECG_ITS ---
Test Reason : CHEST PAIN Blood Pressure : */* mmHG Vent. Rate : 104 BPM Atrial Rate : 104 BPM P-R Int : 182 ms QRS Dur : 70 ms QT Int : 322 ms P-R-T Axes : 42 -60 46 degrees QTcB Int : 423 ms Sinus tachycardia Left axis deviation Inferior infarct (cited on or before 05-Feb-2012) Anterolateral infarct , age undetermined Abnormal ECG When compared with ECG of 16-Sep-2018 10:13, Vent. rate has increased by 41 bpm Questionable change in QRS duration Anterior infarct is now Present Anterolateral infarct is now Present Referred By: Generic ED Physician Electronically Signed By: REBECCA MORLEY MD
--- NOTE | ~2024-06-01 | XR_ITS ---
EXAMINATION: XR CHEST CLINICAL INFORMATION: cp COMPARISON: September 15, 2018. TECHNIQUE: 2 views of the chest were obtained. FINDINGS: Pulmonary reticular pattern. No consolidation, pleural effusion or pneumothorax. Cardiomediastinal silhouette demonstrates calcified plaque in the thoracic aorta. Multilevel thoracolumbar spondylosis. Osteopenia versus osteoporosis. Degenerative changes in the acromioclavicular joints. XR/XR chest 2V IMPRESSION: Chronic interstitial lung disease. Electronically signed by: Da Gray MD 06/01/2024 02:45 PM EST RP
--- NOTE | ~2024-06-01 | CT_ITS ---
CLINICAL HISTORY: cough, hypoxia CT chest without contrast Comparison: CR/MT/SR - XR CHEST 2V - 06/01/24 14:[address]/REG/[place] [id number] - 09/15/18 14:36 EDT Findings: Aortic and coronary atherosclerosis. Normal heart size. No pericardial effusion. Visualized thyroid gland is unremarkable. Scattered subcentimeter mediastinal lymph nodes, nonspecific. Emphysema. Patchy ground-glass opacities in both upper lobes, left worse than right. Mild dependent atelectasis and linear scarring in the lower lobes. No pleural effusion or pneumothorax. Hepatic steatosis. Splenomegaly measuring 16 cm in the AP dimension. Calcification in the left kidney. Degenerative changes of the spine. No acute fracture. IMPRESSION: Bilateral upper lobe ground-glass opacities, left greater than right. Differential considerations include viral or atypical infection and hypersensitivity pneumonitis. This document has been electronically signed by: Hammad Vanegas MD on 06/01/2024 20:26:23
[2024-06-01 14:27] LABS: Basophils Percent Auto 0.2 % (0-2); Eosinophils Percent Auto 0.2 % (0-4); Hematocrit 41.6 % (37.0-47.0); Hemoglobin 14.3 g/dl (12.0-16.0); Imm Gran Abs Auto 0.06 X10*3/uL (0.00-0.03); Imm Gran Pct Auto 0.4 % (0.0-0.4); Lymphocytes Absolute Auto 0.5 X10*3/uL (1.2-4.9); Lymphocytes Percent Auto 3.9 % (20-40); MANUAL DIFF FLAG SCAN; Mean Corpuscular HGB Conc 34.4 g/dl (31.0-35.0); Mean Corpuscular Hemoglobin 29.4 pg (27.0-33.0); Mean Corpuscular Volume 85.6 fL (80.0-98.0); Mean Platelet Volume 9.8 fL (9.4-12.3); Monocytes Absolute Auto 0.6 X10*3/uL (0.1-1.2); Monocytes Percent Auto 4.2 % (2-11); Neutrophils Absolute Auto 12.4 x10*3/uL (2.0-8.3); Neutrophils Percent Auto 91.1 % (45-73); Platelet Count 186 X10*3/uL (160-400); Red Blood Count 4.86 X10*6/uL (4.20-5.50); Red Cell Distribution Width 15.4 % (11.0-16.0); SCAN SMEAR FLAG 1; White Blood Count 13.6 X10*3/uL (4.8-10.8)
--- NOTE | 2024-06-01 14:28 | ED_ITS ---
HPI - Chest Pain General Chief Complaint: Dyspnea Stated Complaint: CP/SOB Time Seen by Provider: 06/01/24 14:28 Source: patient, EMS and RN notes reviewed Mode of arrival: EMS Limitations: no limitations History of Present Illness ED Provider: Roro Sotelo PA-C HPI narrative: This is a 59-year-old female, with a past medical history of asthma ( not currently on supplemental O2) hypertension, GERD, osteoarthritis, GEOFFREY, CAD with prior stenting of the RCA in 2017 with repeat cardiac catheterization in 2019 showing nonobstructive disease and patent stent, who presents emergency department with concerns for sudden chest pain and shortness of breath. Patient reports that over this last month she has been sick with an upper respiratory infection with a dry cough. She felt as though her symptoms were improving up until about 1 week ago where she had worsening shortness of breath as well as a dry cough. She states that she has had subjective fevers and chills. Patient reports that while she was at home she developed sudden midsternal chest pain, sharp in nature with associated shortness for breath. She states that this pain worsens with deep inspiration, and with cough. En route, patient received Solu- Medrol, Mag, DuoNeb, and nitro x2 which improved her chest pain to a 5/10. she was a former smoker, quit 20 years ago MD complaint: chest pain Timing of current episode: constant Pain radiation: none Severity: moderate Quality: tightness and aching Relieving factors: nitroglycerin Exacerbating factors: nothing Treatment prior to arrival: nitroglycerin Risk Factors Coronary artery disease risk factors: hyperlipidemia and hypertension Thoracic aortic dissection risk factors: none Pulmonary embolism risk factors: morbid obesity Related Data On Oral Contraceptives: No Home Medications ?Medication ?Instructions ?Recorded ?Confirmed albuterol sulfate 90 mcg/actuation 1 puff inhalation Q6H PRN for 06/01/24 06/01/24 aerosol inhaler wheezing losartan 100 mg tablet 100 mg PO DAILY 06/01/24 06/01/24 sennosides 8.6 mg-docusate sodium 1 tab-cap PO BEDTIME PRN 06/01/24 06/01/24 50 mg tablet Constipation trazodone 100 mg tablet 200 mg PO BEDTIME 06/01/24 06/01/24 venlafaxine 37.5 mg 37.5 mg PO DAILY 06/01/24 06/01/24 capsule,extended release 24 hr Previous Rx's ?Medication ?Instructions ?Recorded aspirin 81 mg tablet,delayed 81 mg PO DAILY 90 days #90 tabs 08/11/23 release celecoxib 200 mg capsule (Celebrex) 200 mg PO DAILY PRN pain 3 months 09/09/23 #90 caps budesonide-formoterol HFA 160 2 puff inhalation BID 30 days 04/07/24 mcg-4.5 mcg/actuation aerosol #10.2 grams inhaler (Symbicort) atorvastatin 80 mg tablet 80 mg PO DAILY 90 days #90 tabs 04/25/24 famotidine 20 mg tablet 20 mg PO DAILY #90 tabs 04/25/24 nifedipine 30 mg tablet,extended 30 mg PO DAILY 90 days #90 tabs 05/16/24 release 24 hr Allergies Allergy/AdvReac Type Severity Reaction Status Date / Time bee pollen [BEE STINGS] Allergy Severe ANAPHYLAXIS Verified 06/01/24 14:12 spider venom [SPIDER BITES] Allergy Mild SWELLING Verified 06/01/24 14:12 acetaminophen [Vicodin] Allergy Unknown nausea and Verified 06/01/24 14:12 vomiting hydrocodone [Vicodin] Allergy Unknown nausea and Verified 06/01/24 14:12 vomiting Review of Systems 2 Review of Systems: Yes all other systems are reviewed and are negative Constitutional: Constitutional: Reports as per [facility] Past Medical History Medical History CAD (coronary artery disease) Environmental allergies Anxiety, generalized Chronic GERD Asthma, moderate Constipation by delayed colonic transit Lipid disorder Chronic vertigo Hypertension, essential Difficulty sleeping Surgical History Stented coronary artery History of shoulder surgery History of tooth extraction History of left oophorectomy Family History Family History Father Myocardial infarction Mother CHF (congestive heart failure) History of back surgery Brother Acute myocardial infarction Sister Acute myocardial infarction Maternal Grandfather Colon cancer Maternal Grandmother Cancer Paternal Grandmother History of heart attack Cervical cancer Paternal Grandfather No problems noted. Maternal Uncle History of heart attack Sister No problems noted. Brother No problems noted. Brother No problems noted. Brother No problems noted. Social History Social History Housing: Apartment Alcohol intake: current Alcohol intake frequency: a few times a week Patient Tobacco Use Status: Former Tobacco user e-Cigarette/Vaping Use: Never Used service: No Current occupational status: employed Current occupation: left handed Gender identity: Female Cognitive needs: No Hearing needs: No Vision needs: No Physical Exam 2 Vital Signs: Vital Signs: Last Vital Signs Temp 97.9 F 06/02/24 06:00 Pulse 95 06/02/24 15:43 Resp 21 H 06/02/24 15:43 BP 167/73 H 06/02/24 14:50 Pulse Ox 96 06/02/24 14:50 O2 Del Method Room Air 06/02/24 14:50 O2 Flow Rate 46.5 06/01/24 21:02 Oxygen Flow Rate 2 06/01/24 14:08 BMI result Body Mass Index 38.4 Const: General: cooperative, comfortable and no acute distress O rientation/consciousness: patient oriented x3 Limitations: no limitations HEENT: Head: Yes normal to inspection, Yes normocephalic and Yes atraumatic Ears: hearing grossly normal bilaterally General nose exam: Normal external nose present Face and sinus: Yes normal facial exam Mouth: Normal oral and palatal mucosa present, oropharynx normal and moist mucous membranes Throat: Yes posterior oropharynx normal Eyes: General: appearance normal, both eyes and all related structures E yelids: Yes eyelids normal Conjunctivae: conjunctivae normal Sclerae: s clerae normal Pupils: Equal, round and reactive pupils present EOM: EOMs intact bilaterally Neck: Neck: Yes normal visual inspection, Yes full ROM and Yes no lymphadenopathy Lymphatic: no lymphadenopathy noted Chest: Chest palpation & inspection: normal inspection of the chest Resp: Other: Frequent, dry cough heard during examination. Diminished throughout all lung barry. Effort & Inspection: normal respiratory effort, able to speak in complete sentences, no stridor and tachypneic Cardio: Rate: regular rate Rhythm: regular rhythm Heart sounds: S1 normal heart sound present and S2 normal heart sound present GI: Inspection: Yes normal to inspection Skin: General skin exam: no rashes or lesions noted Trauma: no lacerations or abrasions Wounds: no wounds Neuro: General: patient oriented x3 and moves all extremities Cranial nerves: Yes Equal, round and reactive pupils present Extrem: Other: No pitting edema noted, no calf tenderness. General: Yes normal to inspection Right upper extremity: normal to inspection Left upper extremity: normal to inspection Right lower extremity: normal to inspection Left lower extremity: normal to inspection Course Reevaluation(s) Reevaluation #1: D-dimer within normal normal ranges. Patient's tachycardia is likely secondary to updrafts which she received. Patient is afebrile. Time: 15:31 Reevaluation #2: I had patient assessed by my attending physician as we are awaiting repeat troponin, and patient remains to be tachypneic, and tachycardic. She was maintaining her oxygen, she is not hypoxic, 95% on 4 L OxyMask. Given increased work of breathing, and pain, will attempt to decrease work of breathing with morphine. VBG was not initially obtained however given increased tachypnea, will draw VBG and 2nd troponin. If patient's bicarb is elevated, patient would benefit from BiPAP however will hold off and see if morphine is beneficial for her. Patient likely needing hospital admission due to interstitial pneumonia. Case signed out to my colleague, Valentina Hogan, pending repeat troponin. I also sent a message to the hospitalist as patient needs to be admitted for interstitial Pneumonia requiring supplemental oxygen. Discussed case with Dr. Doty who recommends dry chest CT for re-evaluation. After CT scan is back, will reassess for admission. Sign-out given to my colleague, Valentina Hogan pending CT chest, reassessment and re-evaluation. 06/01/2024 Dr. Denton's Attending Note: I did evaluate the patient with the physician laboratory chemical assistant, Roro Sotelo. I reviewed the documentation , treatment and laboratory evaluation as documented. On examination the patient is awake, alert,tachypneic and dyspneic . She is able to answer questions in full sentences. the patient is on high-flow oxygen. As above, the patient will be treated with morphine IV to try to reduce your work of breathing, VBG and CT chest without IV contrast will be obtained. The patient will require admission to the hospitalist service for further management. Time: 17:32 Medications Administered Generic Name Dose Route Start Last Admin Trade Name Freq PRN Reason Stop Dose Admin Albuterol/Ipratropium 3 ml 06/02/24 08:00 06/02/24 15:42 Albuterol/Iprat 2.5/0.5mg 3 Ml Ampul.Neb INHALE 3 ml RQ4H WHILE AWAKE RONDA Administration Aspirin 81 mg 06/02/24 09:00 06/02/24 09:06 Aspirin Enteric Coated 81 Mg Tablet.Dr PO 81 mg DAILY RONDA Administration Atorvastatin Calcium 80 mg 06/02/24 09:00 06/02/24 09:02 Atorvastatin Calcium 80 Mg Tablet PO 80 mg DAILY RONDA Administration Ceftriaxone Sodium 1 gm 06/02/24 15:00 06/02/24 14:44 Ceftriaxone Sodium 1 Gm Vial IVPUSH 1 gm Q24H RONDA Administration Enoxaparin Sodium 40 mg 06/01/24 21:00 06/01/24 22:28 Enoxaparin Sodium 40 Mg/0.4 Ml Syringe SUBCUT 40 mg Q24H RONDA Administration Famotidine 20 mg 06/02/24 06:30 06/02/24 05:23 Famotidine 20 Mg Tablet PO 20 mg DAILY@0630 RONDA Administration Fluticasone/Vilanterol 1 puff 06/02/24 08:00 06/02/24 09:35 Fluticasone/Vilanterol 200/25 Blst.W.Dev INHALE 1 puff RDAILY RONDA Administration Guaifenesin/Codeine Phosphate 10 ml 06/01/24 21:41 06/02/24 09:35 Guaifen/Codeine Sf 200/20/10ml 10 Ml Liquid PO 10 ml Q4H PRN Administration Cough Azithromycin 500 mg/ Sodium 250 mls @ 125 mls/hr 06/02/24 16:00 06/02/24 15:22 Chloride IV 125 mls/hr Q24H RONDA Administration Losartan Potassium 100 mg 06/02/24 09:00 06/02/24 09:04 Losartan Potassium 50 Mg Tablet PO 100 mg DAILY RONDA Administration Protocol Methylprednisolone Sodium Succinate 60 mg 06/01/24 22:00 06/02/24 09:45 Methylprednisolone Sod Succ 125 Mg/2 Ml Vial IVPUSH 60 mg Q12H RONDA Administration Morphine Sulfate 2 mg 06/02/24 14:48 06/02/24 15:22 Morphine Sulfate 2 Mg/Ml Cartridge IVPUSH 2 mg Q4H PRN Administration Pain, Severe (Pain Scale 7-10) Protocol Nifedipine 30 mg 06/02/24 09:00 06/02/24 09:35 Nifedipine Er 30 Mg Tab.Er.24 PO 30 mg DAILY RONDA Administration Protocol Ondansetron HCl 4 mg 06/01/24 20:51 06/02/24 15:21 Ondansetron Hcl 4 Mg/2 Ml Vial IVPUSH 4 mg Q8H PRN Administration Nausea and Vomiting Sodium Chloride 3 ml 06/02/24 00:00 06/02/24 15:24 0.9 % Sodium Chloride Flush 3 Ml Syringe IVFLUSH Not Given QSHIFT RONDA Trazodone HCl 200 mg 06/01/24 21:45 06/01/24 22:28 Trazodone Hcl 100 Mg Tablet PO 200 mg BEDTIME RONDA Administration Venlafaxine HCl 37.5 mg 06/02/24 09:00 06/02/24 09:36 Venlafaxine Hcl Er 37.5 Mg Cap.Er.24h PO 37.5 mg DAILY RONDA Administration Discontinued Medications Generic Name Dose Route Start Last Admin Trade Name Freq PRN Reason Stop Dose Admin Aspirin 324 mg 06/01/24 15:32 06/01/24 16:19 Aspirin 81 Mg Tab.Chew PO 06/01/24 15:33 Not Given ONCE ONE Ceftriaxone Sodium 1 gm 06/01/24 15:29 06/01/24 16:15 Ceftriaxone Sodium 1 Gm Vial IVPUSH 06/01/24 15:30 1 gm ONCE ONE Administration Albuterol Sulfate 5 mg/ 0 mg 06/01/24 15:07 06/01/24 15:10 Albuterol/Ipratropium 3 ml INHALE 06/01/24 15:08 1 each ONCE ONE Administration Albuterol Sulfate 5 mg/ 0 mg 06/01/24 18:28 06/01/24 18:30 Albuterol/Ipratropium 3 ml INHALE 06/01/24 18:29 1 each ONCE ONE Administration Guaifenesin/Codeine Phosphate 10 ml 06/01/24 18:45 06/01/24 18:57 Guaifen/Codeine Sf 200/20/10ml 10 Ml Liquid PO 06/01/24 18:46 10 ml ONCE ONE Administration Azithromycin 500 mg/ Sodium 250 mls @ 125 mls/hr 06/01/24 15:29 06/01/24 18:26 Chloride IV 06/01/24 17:28 Infused ONCE ONE Infusion Sodium Chloride 1,000 mls @ 999 mls/hr 06/01/24 15:45 06/01/24 18:25 Ns IVCONT 06/01/24 17:45 Infused .Q1H1M RONDA Infusion Morphine Sulfate 4 mg 06/01/24 17:23 06/01/24 17:31 Morphine Sulfate 4 Mg/Ml Cartridge IVPUSH 06/01/24 17:24 4 mg ONCE ONE Administration Protocol Morphine Sulfate 2 mg 06/02/24 05:11 06/02/24 05:22 Morphine Sulfate 2 Mg/Ml Cartridge IVPUSH 06/02/24 05:12 2 mg ONCE ONE Administration Protocol Medical Decision Making Medical Decision Making [facility] Narrative: This is a 59-year-old female who presents emergency department for evaluation of cold-like symptoms for several weeks, with acute onset of chest pain which started today. Patient called 911 where she received an updraft, Mag sulfate, Solu-Medrol, duo nebulizer, and nitroglycerin x2. She states that the chest pain improved to a 5/10. Patient reports pain worsens with deep inspiration, and with cough. Reproducible chest wall tenderness on examination, lungs are diminished throughout all lung barry, without any discrete rhonchi or wheezes. No pitting edema noted, no calf tenderness. No recent travel, surgery, or hospitalizations. No history of DVTs. Differential diagnoses include URI, ACS, pneumonia, CHF, PE. PE is less likely as she has no risk factors other than her obesity and age however given acute onset shortness for breath and pleuritic chest pain, will obtain D-dimer. Initial EKG revealing Q-wave in II, III, aVF and sinus tachycardia at 104. Labs were obtained prior to my assessment, she does have slight leukocytosis at 13.6, differential still pending. First troponin less than 2.7. Chemistry revealing no significant electrolyte derangement. Differential Diagnosis Differential Diagnoses: The differential diagnosis associated with the presentation includes See above Admission/Observation Consideration of admission/observation: Escalation of care including admission/observation considered Lab Data [facility] Lab Attestation statement: I reviewed the patient's lab results. Patient with slight leukocytosis at 13.6, with slightly left shift, chemistry with no significant electrolyte derangement. Mild hyperglycemia at 1:46 a.m., lactic acid 1.8, 1st troponin negative. BNP 18. Negative COVID, flu, RSV. 06/02/24 04:33 06/02/24 04:33 Labs: Lab Results 06/01/24 06/01/24 06/01/24 Range/Units 14:15 15:19 15:49 WBC 13.6 H (4.8-10.8) X10*3/uL RBC 4.86 (4.20-5.50) X10*6/uL Hgb 14.3 (12.0-16.0) g/dl Hct 41.6 (37.0-47.0) % MCV 85.6 (80.0-98.0) fL MCH 29.4 (27.0-33.0) pg MCHC 34.4 (31.0-35.0) g/dl RDW 15.4 (11.0-16.0) % Plt Count 186 (160-400) X10*3/uL MPV 9.8 (9.4-12.3) fL Immature Gran % (Auto) 0.4 (0.0-0.4) % Neut % (Auto) 91.1 H (45-73) % Lymph % (Auto) 3.9 L (20-40) % [place] % (Auto) 4.2 (2-11) % Eos % (Auto) 0.2 (0-4) % Baso % (Auto) 0.2 (0-2) % Lymph # (Auto) 0.5 L (1.2-4.9) X10*3/uL [place] # (Auto) 0.6 (0.1-1.2) X10*3/uL Eos # (Auto) 0.0 (0.0-0.4) X10*3/uL Baso # (Auto) 0.0 (0.0-0.2) X10*3/uL Abs Immat Gran (auto) 0.06 H (0.00-0.03) X10*3/uL Absolute Neuts (auto) 12.4 H (2.0-8.3) x10*3/uL Absolute Nucleated RBC 0.000 (0.0-0.012) X10*3/uL Nucleated RBC % (auto) 0.0 (0.0-0.2) /100WBC Smear Tech's Comments VERIFIED PT 11.4 (10.9-12.4) SEC INR 1.0 (0.9-1.1) D-Dimer High Sensitivty 197 NG/ML VBG pH (7.32-7.43) VBG pCO2 mmHg VBG pO2 mmHg VBG HCO3 (22-26) mmol/L VBG O2 Saturation % VBG Base Excess mmol/L Sodium 136 (135-145) mmol/L Potassium 4.1 (3.3-5.1) mmol/L Chloride 109 H (96-108) mmol/L Carbon Dioxide 20 L (22-29) mmol/L Anion Gap 11 L (12-20) BUN 12 (9-16) mg/dL Creatinine 0.88 (0.5-1.4) mg/dL Estim Creat Clear Calc 72.2 Estimated GFR > 60 Random Glucose 146 H (60-115) mg/dL Lactic Acid 1.8 (0.5-2.0) mmol/L Calcium 8.6 D (8.4-10.2) mg/dL Total Bilirubin 0.3 (0.0-1.0) mg/dL AST 28 (5-31) U/L ALT 24 (0-31) U/L Alkaline Phosphatase 81 (39-117) U/L Troponin I High Sens < 2.7 (<3.5-17.0) ng/L B-Natriuretic Peptide 18 (<100) pg/mL Total Protein 6.7 (6.5-8.0) g/dL Albumin 3.7 (3.5-5.0) g/dL Respiratory Panel Rowe See Note Adenovirus (Rapid PCR) Not Detected (Not Detect.) B.pert (TEM-PCR) Not Detected (Not Detect.) B.parapertussis DNA PCR Not Detected (Not Detect.) C. pneumoniae DNA (PCR) Not Detected (Not Detect.) Coronavirus OC43 (PCR) Detected A (Not Detect.) Coronavirus HKU1 (PCR) Not Detected (Not Detect.) Coronavirus 229E (PCR) Not Detected (Not Detect.) Coronavirus NL63 (PCR) Not Detected (Not Detect.) Human Metapneumovir PCR Not Detected (Not Detect.) Influenza A (RT-PCR) Not Detected (Not Detect.) Influenza Type A (PCR) NEGATIVE (Negative) Influenza B (RT-PCR) Not Detected (Not Detect.) Influenza Type B (PCR) NEGATIVE (Negative) M. pneumoniae (PCR) Not Detected (Not Detect.) Parainfluenza 1 (PCR) Not Detected (Not Detect.) Parainfluenza 2 (PCR) Not Detected (Not Detect.) Parainfluenza 3 (PCR) Not Detected (Not Detect.) Parainfluenza 4 (PCR) Not Detected (Not Detect.) RSV (PCR) Not Detected (Not Detect.) RSV RNA Qual (PCR) NEGATIVE (Negative) Entero/Rhino (PCR) Not Detected (Not Detect.) SARS-CoV-2 RNA (RT-PCR) NEGATIVE Not Detected (Negative) 06/01/24 06/01/24 Range/Units 17:23 17:32 WBC (4.8-10.8) X10*3/uL RBC (4.20-5.50) X10*6/uL Hgb (12.0-16.0) g/dl Hct (37.0-47.0) % MCV (80.0-98.0) fL MCH (27.0-33.0) pg MCHC (31.0-35.0) g/dl RDW (11.0-16.0) % Plt Count (160-400) X10*3/uL MPV (9.4-12.3) fL Immature Gran % (Auto) (0.0-0.4) % Neut % (Auto) (45-73) % Lymph % (Auto) (20-40) % [place] % (Auto) (2-11) % Eos % (Auto) (0-4) % Baso % (Auto) (0-2) % Lymph # (Auto) (1.2-4.9) X10*3/uL [place] # (Auto) (0.1-1.2) X10*3/uL Eos # (Auto) (0.0-0.4) X10*3/uL Baso # (Auto) (0.0-0.2) X10*3/uL Abs Immat Gran (auto) (0.00-0.03) X10*3/uL Absolute Neuts (auto) (2.0-8.3) x10*3/uL Absolute Nucleated RBC (0.0-0.012) X10*3/uL Nucleated RBC % (auto) (0.0-0.2) /100WBC Smear Tech's Comments PT (10.9-12.4) SEC INR (0.9-1.1) D-Dimer High Sensitivty NG/ML VBG pH 7.34 (7.32-7.43) VBG pCO2 33 mmHg VBG pO2 53 mmHg VBG HCO3 18 L (22-26) mmol/L VBG O2 Saturation 83.0 % VBG Base Excess -6.4 mmol/L Sodium (135-145) mmol/L Potassium (3.3-5.1) mmol/L Chloride (96-108) mmol/L Carbon Dioxide (22-29) mmol/L Anion Gap (12-20) BUN (9-16) mg/dL Creatinine (0.5-1.4) mg/dL Estim Creat Clear Calc Estimated GFR Random Glucose (60-115) mg/dL Lactic Acid (0.5-2.0) mmol/L Calcium (8.4-10.2) mg/dL Total Bilirubin (0.0-1.0) mg/dL AST (5-31) U/L ALT (0-31) U/L Alkaline Phosphatase (39-117) U/L Troponin I High Sens 2.8 (<3.5-17.0) ng/L B-Natriuretic Peptide (<100) pg/mL Total Protein (6.5-8.0) g/dL Albumin (3.5-5.0) g/dL Respiratory Panel Rowe Adenovirus (Rapid PCR) (Not Detect.) B.pert (TEM-PCR) (Not Detect.) B.parapertussis DNA PCR (Not Detect.) C. pneumoniae DNA (PCR) (Not Detect.) Coronavirus OC43 (PCR) (Not Detect.) Coronavirus HKU1 (PCR) (Not Detect.) Coronavirus 229E (PCR) (Not Detect.) Coronavirus NL63 (PCR) (Not Detect.) Human Metapneumovir PCR (Not Detect.) Influenza A (RT-PCR) (Not Detect.) Influenza Type A (PCR) (Negative) Influenza B (RT-PCR) (Not Detect.) Influenza Type B (PCR) (Negative) M. pneumoniae (PCR) (Not Detect.) Parainfluenza 1 (PCR) (Not Detect.) Parainfluenza 2 (PCR) (Not Detect.) Parainfluenza 3 (PCR) (Not Detect.) Parainfluenza 4 (PCR) (Not Detect.) RSV (PCR) (Not Detect.) RSV RNA Qual (PCR) (Negative) Entero/Rhino (PCR) (Not Detect.) SARS-CoV-2 RNA (RT-PCR) (Negative) Independent Interpretation I performed an independent interpretation of an: EKG Interpretation: Initial EKG revealing Q-wave in II, III, aVF and sinus tachycardia at 104. Radiology Impression Discussion of test interpretation with radiology: I have reviewed the radiologist's reading. Radiologist Impression: CLINICAL INFORMATION: cp COMPARISON: September 15, 2018. TECHNIQUE: 2 views of the chest were obtained. FINDINGS: Pulmonary reticular pattern. No consolidation, pleural effusion or pneumothorax. Cardiomediastinal silhouette demonstrates calcified plaque in the thoracic aorta. Multilevel thoracolumbar spondylosis. Osteopenia versus osteoporosis. Degenerative changes in the acromioclavicular joints. XR/XR chest 2V IMPRESSION: Chronic interstitial lung disease. Electronically signed by: Da Gray MD 06/01/2024 02:45 PM [facility] [place] Dictated By: Da Coffman MD Scores Heart Score History: -0- slightly suspicious ECG: -1- non specific repolarization disturbance Age: -1- >45 - <65 Risk factory: -2- 3 or more risk factors or treated atherosclerosis Troponin: -0- < or = normal limit Score: 4 Risk: 16.6% Critical Care Time Critical Care Time Critical Care Time: Yes Total Critical Care Time: 35 Attestation: I have personally provided critical care time exclusive of time spent on separately billable procedures. Time includes review of lab data, radiology results, discussion with consultants, and monitoring for potential decompensation. Intervention performed as documented. Discharge Plan Discharge Clinical Impression: Acute interstitial pneumonia, Hypoxia Patient Disposition: Still a Patient Interventions: Admission Worksheet (ED) Last Done: 06/02/24 15:04
[2024-06-01 14:29] LABS: Prothrombin Time 11.4 SEC (10.9-12.4)
[2024-06-01 14:35] LABS: Alanine Aminotransferase 24 U/L (0-31); Albumin Level 3.7 g/dL (3.5-5.0); Alkaline Phosphatase 81 U/L (39-117); Anion Gap 11 (12-20); Aspartate Amino Transferase 28 U/L (5-31); Bilirubin Total 0.3 mg/dL (0.0-1.0); Blood Urea Nitrogen 12 mg/dL (9-16); Calcium 8.6 mg/dL (8.4-10.2); Carbon Dioxide 20 mmol/L (22-29); Chloride 109 mmol/L (96-108); Creatinine Clr Calc Pharmacy 72.2; Estimated Glomerular Filt Rate > 60; Glucose Random 146 mg/dL (60-115); Potassium 4.1 mmol/L (3.3-5.1); Sodium 136 mmol/L (135-145); Total Protein 6.7 g/dL (6.5-8.0)
[2024-06-01 14:45] LABS: Troponin-I High Sensitivity < 2.7 ng/L (<3.5-17.0)
[2024-06-01 14:56] LABS: SLIDE REVIEW VERIFIED
[2024-06-01 15:05] LABS: Influenza A PCR NEGATIVE (Negative); Influenza B PCR NEGATIVE (Negative); Resp Syncy Virus RNA Qual PCR NEGATIVE (Negative); SARS COV2 PCR INHOUSE NEGATIVE (Negative)
[2024-06-01 15:10] LABS: D Dimer High Sensitivity 197 NG/ML
[2024-06-01] MEDS: Albuterol Sulfate 5 MG, Albuterol/Iprat 2.5/0.5MG 3 ML 3 ML INHALE ×2 (15:10→18:30)
[2024-06-01 15:19] LABS: B Type Natriuretic Peptide 18 pg/mL (<100)
[2024-06-01 16:13] LABS: Lactic Acid 1.8 mmol/L (0.5-2.0)
[2024-06-01] MEDS: cefTRIAXone sodium 1 GM VIAL IVPUSH (16:15)
[2024-06-01] MEDS: 0.9 % Sodium Chloride 1,000 ML 999 ML IVCONT ×2 (16:15→17:31)
[2024-06-01] MEDS: Azithromycin 500 MG in 0.9 % Sodium Chloride 250 ML 125 MG IV (16:21)
[2024-06-01] MEDS: Morphine Sulfate 4 MG/ML CARTRIDGE IVPUSH (17:31)
[2024-06-01 17:38] LABS: Venous Blood Gas Refer to POC result
[2024-06-01 17:38] LABS: VBG Base Excess -6.4 mmol/L; VBG HCO3 18 mmol/L (22-26); VBG pCO2 33 mmHg; VBG pH 7.34 (7.32-7.43); VBG pO2 53 mmHg
[2024-06-01 18:01] LABS: Troponin-I High Sensitivity 2.8 ng/L (<3.5-17.0)
--- NOTE | 2024-06-01 18:30 | PC.NURSE ---
Pt's cough persisting; pt's RR improved after Morphine but still 25-32; HR 100ST; pt states I'm getting tired ; PAArmandoC made aware; RT paged to evaluate pt for Hi-flow
[2024-06-01] MEDS: guaiFEN/Codeine SF 200/20/10ML 10 ML LIQUID PO (18:57)
--- NOTE | 2024-06-01 19:07 | PHA.MEDREC ---
Addendum entered by Rola Steward RPh 06/01/24 19:48: Med rec reviewed by mechelle. Venlafaxine and losartan added to medication list as claim history supports home doses of these medications. Original Note: Pharmacy Consult ? Medication Reconciliation Pharmacy has completed the medication reconciliation. Spoke with patient and she confirmed her medications. She stated she is only taking one HBP medication and states it is the Nifedipine 30mg tab once daily but when I asked about the Losartan 100mg tab she was confused and did not know anything about that; she has been consistently filling it for 90 days since July 2023 and last filled it 04/25 for 90 days. She also confirmed she is not taking the Venlafaxine 37.5mg and stated she never took that even tho that also has been consistently filling that for 90 days since July 2023. I called the patients he was not so sure what his was taking and tried his best to read her RX bottles to me but did not know anything else. The patient confirmed she last took her medications this morning.
--- NOTE | 2024-06-01 20:51 | P.HPHOSP_ITS ---
History of Present Illness Date of Service: 06/01/24 Attending physician on admission: Gael Jenkins Chief Complaint: Chest pain and SOB Pt is a 59-year-old female with a PMH significant for?asthma, CAD s/p stenting of RCA in 2017, HTN, osteoarthritis, and GERD who presents to the ED with?SOB, cough, and chest pain that worsening this afternoon. Pt reports she came down with a cold last month which seemed to have resolved on its own. However she developed a dry cough and SOB a couple of weeks ago that have since progressively worsened. Has also experienced subjective fever and chills, increased fatigue, and difficulty sleeping. Today at work pt was in the break room when she had an unrelenting coughing fit that would not stop. Pt became short of breath, had difficulty breathing, and had central, substernal, and nonradiating chest pain that was sharp and stabbing in nature. Pt became diaphoretic and given her hx of CAD and previous NH called EMS who arrived and found pt hypoxic. EMS place pt on supplemental O2 and gave Solu-Medrol, Mag, DuoNebs, and nitroglycerin x2 with some symptom relief. In the ED pt was tachycardic up to 118, tachypneic up to 34, and initially hypertensive at 172/76. Hypoxia noted by EMS and arrived on OxyMask which has now been transitioned to high-flow. Labs were significant for leukocytosis of 13.6, otherwise grossly unremarkable and around baseline for pt. Stable H&H. No significant electrolyte abnormalities. Renal and hepatic function baseline. Serial troponins negative. BNP WNL. D-dimer negative. Respiratory panel pending. CXR showed chronic interstitial lung disease. CT?of chest found bilateral upper lobe ground-glass opacities left greater than right concerning for atypical infection vs hypersensitivity pneumonitis. EKG demonstrated sinus tachycardia of 104 without evidence of significant ST elevations or depressions. Pt was treated with DuoNebs, IVF, morphine, guaifenesin, ceftriaxone, and azithromycin. Pt will be admitted to the hospital for treatment and further evaluation of acute hypoxic respiratory failure in the setting of interstitial pneumonia with sepsis. Review of Systems 2 Review of Systems: Negative except for that which is stated in the [facility] Medical History CAD (coronary artery disease) Environmental allergies Anxiety, generalized Chronic GERD Asthma, moderate Constipation by delayed colonic transit Lipid disorder Chronic vertigo Hypertension, essential Difficulty sleeping Family History Father Myocardial infarction Mother CHF (congestive heart failure) History of back surgery Brother Acute myocardial infarction Sister Acute myocardial infarction Maternal Grandfather Colon cancer Maternal Grandmother Cancer Paternal Grandmother History of heart attack Cervical cancer Paternal Grandfather No problems noted. Maternal Uncle History of heart attack Sister No problems noted. Brother No problems noted. Brother No problems noted. Brother No problems noted. Surgical History Stented coronary artery History of shoulder surgery History of tooth extraction History of left oophorectomy Social History Housing: Apartment Alcohol intake: current Alcohol intake frequency: a few times a week Patient Tobacco Use Status: Former Tobacco user Smoked in Last 30 Days: No e-Cigarette/Vaping Use: Never Used Use of substances other than those prescribed or required for medical reasons: No Advance Directives: No Advance Directives Information Provided: No Do you have a plan to hurt others: No Plan Patient : No service: No Current occupational status: employed Current occupation: left handed Gender identity: Female Cognitive needs: No Hearing needs: No Vision needs: No Meds Allergies Allergy/AdvReac Type Severity Reaction Status Date / Time bee pollen [BEE STINGS] Allergy Severe ANAPHYLAXIS Verified 06/01/24 14:12 spider venom [SPIDER BITES] Allergy Mild SWELLING Verified 06/01/24 14:12 acetaminophen [Vicodin] Allergy Unknown nausea and Verified 06/01/24 14:12 vomiting hydrocodone [Vicodin] Allergy Unknown nausea and Verified 06/01/24 14:12 vomiting Home Medications ?Medication ?Instructions ?Recorded ?Confirmed ?Last Taken ?Type albuterol sulfate 90 mcg/actuation 1 puff inhalation Q6H PRN for 06/01/24 06/01/24 Unknown History aerosol inhaler wheezing losartan 100 mg tablet 100 mg PO DAILY 06/01/24 06/01/24 Unknown History sennosides 8.6 mg-docusate sodium 1 tab-cap PO BEDTIME PRN 06/01/24 06/01/24 Unknown History 50 mg tablet Constipation trazodone 100 mg tablet 200 mg PO BEDTIME 06/01/24 06/01/24 06/01/24 History venlafaxine 37.5 mg 37.5 mg PO DAILY 06/01/24 06/01/24 Unknown History capsule,extended release 24 hr Physical Exam 2 Vital Signs and Narrative: Vital Signs: Last Vital Signs Temp 99.4 F 06/01/24 18:39 Pulse 102 H 06/01/24 18:39 Resp 18 06/01/24 19:01 BP 135/60 06/01/24 18:39 Pulse Ox 93 06/01/24 18:39 O2 Del Method Room Air 06/01/24 18:39 O2 Flow Rate 4 06/01/24 18:29 Oxygen Flow Rate 2 06/01/24 14:08 BMI result Body Mass Index 38.4 General: AOx3, no acute distress Resp: CTA bilaterally but diminished. Pt noted to have frequent nonproductive cough during interview and examination. Currently on high-flow CVS: S1, S2, RRR GI: +BS, NT, no distention Skin: Warm, dry Neuro: Cranial nerves II-XII grossly intact bilaterally. Motor grossly intact bilaterally Extremities: No edema Psych: Appropriate affect Results Labs 06/01/24 14:15 06/01/24 14:15 Labs: Laboratory Results - last 24 hr 06/01/24 06/01/24 06/01/24 14:15 15:49 17:32 MCV 85.6 MCH 29.4 MCHC 34.4 RDW 15.4 Plt Count 186 MPV 9.8 Immature Gran % (Auto) 0.4 Neut % (Auto) 91.1 H Lymph % (Auto) 3.9 L [place] % (Auto) 4.2 Eos % (Auto) 0.2 Baso % (Auto) 0.2 Lymph # (Auto) 0.5 L [place] # (Auto) 0.6 Eos # (Auto) 0.0 Baso # (Auto) 0.0 Abs Immat Gran (auto) 0.06 H Absolute Neuts (auto) 12.4 H Absolute Nucleated RBC 0.000 Nucleated RBC % (auto) 0.0 Smear Tech's Comments VERIFIED PT 11.4 INR 1.0 D-Dimer High Sensitivty 197 VBG pH 7.34 VBG pCO2 33 VBG pO2 53 VBG HCO3 18 L VBG O2 Saturation 83.0 VBG Base Excess -6.4 Anion Gap 11 L Estim Creat Clear Calc 72.2 Estimated GFR > 60 Random Glucose 146 H Lactic Acid 1.8 Calcium 8.6 D Total Bilirubin 0.3 AST 28 ALT 24 Alkaline Phosphatase 81 B-Natriuretic Peptide 18 Total Protein 6.7 Albumin 3.7 Influenza Type A (PCR) NEGATIVE Influenza Type B (PCR) NEGATIVE RSV RNA Qual (PCR) NEGATIVE SARS-CoV-2 RNA (RT-PCR) NEGATIVE Imaging Radiologist's Impressions: Impressions Chest X-Ray 06/01/24 14:31 IMPRESSION: Chronic interstitial lung disease. Electronically signed by: Da Gray MD 06/01/2024 02:45 PM EST RP Assessment and Plan (1) Hypoxia: Status: Acute (2) Acute interstitial pneumonia: Status: Acute Plan Pt is a 59-year-old female with a PMH significant for?asthma, CAD s/p stenting of RCA in 2017, HTN, osteoarthritis, and GERD who presents to the ED with?SOB, cough, and chest pain that worsening this afternoon. Pt will be admitted to the hospital for treatment and further evaluation of acute hypoxic respiratory failure in the setting of bilateral interstitial pneumonia with sepsis. Acute hypoxic respiratory in the setting of bilateral interstitial pneumonia with sepsis SOB x and nonproductive cough x1-2 weeks, today with sudden onset increased SOB and nonradiating central chest pain Pt noted by EMS to be hypoxic placed on OxyMask and transitioned to high-flow Chest CT showing bilateral interstitial pneumonia Meets sepsis criteria: Tachycardia, tachypnea, and leukocytosis; lactic acid WNL Pt given IVF and started on broad-spectrum antibiotics in the ED Will treat with ceftriaxone, azithromycin, and Solu-Medrol 60 mg IV b.i.d. DuoNebs, guaifenesin with codeine Pulmonology consult CAD/HLD Continue statin, aspirin HTN Continue losartan, nifedipine GERD Continue famotidine Full Code Attending:?Dr. Jenkins DVT Prophylaxis: Lovenox Pt will require a hospitalization of at least two nights for treatment of?acute hypoxic respiratory failure in the setting of bilateral interstitial pneumonia with sepsis. Pt will require administration of IV antibiotics, IV steroids, supplemental oxygen, breathing treatments, as well as close monitoring of respiratory status and specialist consultation with pulmonology. Quality Stroke Does the patient have a stroke diagnosis?: No VTE Prior VTE?: No VTE Risk Level:: Medical - moderate - high VTE Device Contraindication: Treatment Not Indicated VTE Drug Contraindication: N/A - Med Ordered
[2024-06-01] MEDS: methylPREDNISolone Sod Succ 125 MG/2 ML VIAL 60 MG IVPUSH (22:28)
[2024-06-01] MEDS: traZODone HCL 100 MG TABLET 200 MG PO (22:28)
[2024-06-01] MEDS: Enoxaparin Sodium 40 MG/0.4 ML SYRINGE SUBCUT (22:28)
[2024-06-02] VITALS (12 sets, daily range): BP systolic 138–167; BP diastolic 63–73; PULSE 59–95; RESP 16–23; TEMP 36.6–36.9; O2SAT 94–99; BMI 39.1
[2024-06-02] MEDS: 0.9 % Sodium Chloride Flush 3 ML SYRINGE IVFLUSH ×2 (00:20→09:01)
[2024-06-02 04:43] LABS: Basophils Percent Auto 0.2 % (0-2); Hematocrit 40.8 % (37.0-47.0); Hemoglobin 13.6 g/dl (12.0-16.0); Imm Gran Abs Auto 0.03 X10*3/uL (0.00-0.03); Imm Gran Pct Auto 0.3 % (0.0-0.4); Lymphocytes Absolute Auto 0.6 X10*3/uL (1.2-4.9); Lymphocytes Percent Auto 5.4 % (20-40); MANUAL DIFF FLAG SCAN; Mean Corpuscular HGB Conc 33.3 g/dl (31.0-35.0); Mean Corpuscular Hemoglobin 29.1 pg (27.0-33.0); Mean Corpuscular Volume 87.2 fL (80.0-98.0); Mean Platelet Volume 9.7 fL (9.4-12.3); Monocytes Absolute Auto 0.2 X10*3/uL (0.1-1.2); Monocytes Percent Auto 1.6 % (2-11); Neutrophils Absolute Auto 10.1 x10*3/uL (2.0-8.3); Neutrophils Percent Auto 92.5 % (45-73); Platelet Count 175 X10*3/uL (160-400); Red Blood Count 4.68 X10*6/uL (4.20-5.50); Red Cell Distribution Width 15.7 % (11.0-16.0); SCAN SMEAR FLAG 1; White Blood Count 10.9 X10*3/uL (4.8-10.8)
[2024-06-02 04:59] LABS: Anion Gap 13 (12-20); Blood Urea Nitrogen 9 mg/dL (9-16); Calcium 8.5 mg/dL (8.4-10.2); Carbon Dioxide 18 mmol/L (22-29); Chloride 114 mmol/L (96-108); Creatinine Clr Calc Pharmacy 82.5; Estimated Glomerular Filt Rate > 60; Glucose Random 167 mg/dL (60-115); Potassium 3.9 mmol/L (3.3-5.1); Sodium 141 mmol/L (135-145)
[2024-06-02 05:06] LABS: SLIDE REVIEW VERIFIED
[2024-06-02] MEDS: Morphine Sulfate 2 MG/ML CARTRIDGE IVPUSH ×3 (05:22→22:23)
[2024-06-02] MEDS: Famotidine 20 MG TABLET PO (05:23)
[2024-06-02] MEDS: Atorvastatin Calcium 80 MG TABLET PO (09:02)
[2024-06-02] MEDS: Albuterol/Iprat 2.5/0.5MG 3 ML AMPUL.NEB INHALE ×4 (09:02→19:17)
[2024-06-02] MEDS: Losartan Potassium 50 MG TABLET 100 MG PO (09:04)
[2024-06-02] MEDS: Aspirin Enteric Coated 81 MG TABLET.DR PO (09:06)
--- NOTE | 2024-06-02 09:08 | PC.NURSE ---
unlabored resp at rest in bed. on High flow. skin pwd. spking full sentences. nsr on monitor. aware of plan of care. LS clear but dim. has hacking cough. denies CP at this time.
--- NOTE | 2024-06-02 09:31 | MHC.CM.PN ---
Pt. lives with her , she is functionally independent, no home health services or DME. PCP confirmed: Dee Joseph. HCP discussed, pt. will complete form and it will be added to chart, naming her sister and . Pt. can arrange transport home at [place], DCP: home, self care. CM to follow for DC needs.
[2024-06-02] MEDS: Fluticasone/Vilanterol 200/25 BLST.W.DEV 1 PUFF INHALE (09:35)
[2024-06-02] MEDS: guaiFEN/Codeine SF 200/20/10ML 10 ML LIQUID PO ×3 (09:35→22:40)
[2024-06-02] MEDS: NIFEdipine ER 30 MG TAB.ER.24 PO (09:35)
[2024-06-02] MEDS: Venlafaxine HCl ER 37.5 MG CAP.ER.24H PO (09:36)
[2024-06-02] MEDS: methylPREDNISolone Sod Succ 125 MG/2 ML VIAL 60 MG IVPUSH ×2 (09:45→22:24)
--- NOTE | 2024-06-02 10:03 | P.PNIM_ITS ---
Subjective Subjective Date of Service: 06/02/24 Interval History: seen and examined minimal improvement since admission still coughing and sob sats okay on HFNC Review of Systems Negative except HPI/interval history. Physical Exam 2 Vital Signs: Vital Signs: Last Vital Signs Temp 97.9 F 06/02/24 06:00 Pulse 68 06/02/24 09:05 Resp 23 H 06/02/24 09:05 BP 163/63 H 06/02/24 09:35 Pulse Ox 97 06/02/24 06:00 O2 Del Method High Flow Nasal C annula 06/02/24 06:00 O2 Flow Rate 46.5 06/01/24 21:02 Oxygen Flow Rate 2 06/01/24 14:08 BMI result Body Mass Index 38.4 Const: Other: General - no acute distress, appears comfortable on HFNC Cardiovascular - regular rate and rhythm, S1-S2 Lungs - coarse sounds Abdomen - soft, nontender, no rebound or guarding Extremities - no edema bilaterally Neuro - awake and alert, no focal deficits Objective Data Active Medications Acetaminophen (Acetaminophen 325 Mg Tablet) 650 mg PO Q6H PRN PRN Reason: Pain, Mild 1-3,fever,headache Albuterol/Ipratropium (Albuterol/Iprat 2.5/0.5mg 3 Ml Ampul.Neb) 3 ml INHALE RQ4H WHILE AWAKE [facility] Last Admin: 06/02/24 09:02 Dose: 3 ml Documented By: BOWEN Aspirin (Aspirin Enteric Coated 81 Mg Tablet.) 81 mg PO DAILY [facility] Last Admin: 06/02/24 09:06 Dose: 81 mg Documented By: NISHANT Atorvastatin Calcium (Atorvastatin Calcium 80 Mg Tablet) 80 mg PO DAILY [facility] Last Admin: 06/02/24 09:02 Dose: 80 mg Documented By: NISHANT Calcium Carbonate (Calcium Carbonate 750 Mg Tab.Chew) 750 mg PO Q4H PRN PRN Reason: Heartburn Ceftriaxone Sodium (Ceftriaxone Sodium 1 Gm Vial) 1 gm IVPUSH Q24H [facility] Enoxaparin Sodium (Enoxaparin Sodium 40 Mg/0.4 Ml Syringe) 40 mg SUBCUT Q24H [facility] Last Admin: 06/01/24 22:28 Dose: 40 mg Documented By: CAROLE Famotidine (Famotidine 20 Mg Tablet) 20 mg PO DAILY@0630 [facility] Last Admin: 06/02/24 05:23 Dose: 20 mg Documented By: CAROLE Fluticasone/Vilanterol (Fluticasone/Vilanterol 200/25 Blst.W.Dev) 1 puff INHALE RDAILY [facility] Last Admin: 06/02/24 09:35 Dose: 1 puff Documented By: NISHANT Guaifenesin/Codeine Phosphate (Guaifen/Codeine Sf 200/20/10ml 10 Ml Liquid) 10 ml PO Q4H PRN PRN Reason: Cough Last Admin: 06/02/24 09:35 Dose: 10 ml Documented By: NISHANT Azithromycin 500 mg/ Sodium (Chloride) 250 mls @ 125 mls/hr IV Q24H [facility] Losartan Potassium (Losartan Potassium 50 Mg Tablet) 100 mg PO DAILY [facility]; Protocol Last Admin: 06/02/24 09:04 Dose: 100 mg Documented By: NISHANT Magnesium Hydroxide (Milk Of Magnesia 30 Ml Oral.Susp) 30 ml PO DAILY PRN PRN Reason: Constipation Melatonin (Melatonin 3 Mg Tablet) 6 mg PO BEDTIME PRN PRN Reason: Insomnia Methylprednisolone Sodium Succinate (Methylprednisolone Sod Succ 125 Mg/2 Ml Vial) 60 mg IVPUSH Q12H [facility] Last Admin: 06/01/24 22:28 Dose: 60 mg Documented By: CAROLE Nifedipine (Nifedipine Er 30 Mg Tab.Er.24) 30 mg PO DAILY [facility]; Protocol Last Admin: 06/02/24 09:35 Dose: 30 mg Documented By: NISHANT Ondansetron HCl (Ondansetron Hcl 4 Mg/2 Ml Vial) 4 mg IVPUSH Q8H PRN PRN Reason: Nausea and Vomiting Senna/Docusate Sodium (Sennosides/Docusate Sodium Tablet) 1 tab PO BEDTIME PRN PRN Reason: Constipation Sodium Chloride (0.9 % Sodium Chloride Flush 3 Ml Syringe) 3 ml IVFLUSH QSHIFT [facility] Last Admin: 06/02/24 09:01 Dose: 3 ml Documented By: NISHANT Trazodone HCl (Trazodone Hcl 100 Mg Tablet) 200 mg PO BEDTIME [facility] Last Admin: 06/01/24 22:28 Dose: 200 mg Documented By: CAROLE Venlafaxine HCl (Venlafaxine Hcl Er 37.5 Mg Cap.Er.24h) 37.5 mg PO DAILY [facility] Last Admin: 06/02/24 09:36 Dose: 37.5 mg Documented By: NISHANT Labs 06/02/24 04:33 06/02/24 04:33 Labs: Laboratory Results - last 24 hr 06/01/24 06/01/24 06/01/24 14:15 15:49 17:32 MCV 85.6 MCH 29.4 MCHC 34.4 RDW 15.4 Plt Count 186 MPV 9.8 Immature Gran % (Auto) 0.4 Neut % (Auto) 91.1 H Lymph % (Auto) 3.9 L [place] % (Auto) 4.2 Eos % (Auto) 0.2 Baso % (Auto) 0.2 Lymph # (Auto) 0.5 L [place] # (Auto) 0.6 Eos # (Auto) 0.0 Baso # (Auto) 0.0 Abs Immat Gran (auto) 0.06 H Absolute Neuts (auto) 12.4 H Absolute Nucleated RBC 0.000 Nucleated RBC % (auto) 0.0 Smear Tech's Comments VERIFIED PT 11.4 INR 1.0 D-Dimer High Sensitivty 197 VBG pH 7.34 VBG pCO2 33 VBG pO2 53 VBG HCO3 18 L VBG O2 Saturation 83.0 VBG Base Excess -6.4 Anion Gap 11 L Estim Creat Clear Calc 72.2 Estimated GFR > 60 Random Glucose 146 H Lactic Acid 1.8 Calcium 8.6 D Total Bilirubin 0.3 AST 28 ALT 24 Alkaline Phosphatase 81 B-Natriuretic Peptide 18 Total Protein 6.7 Albumin 3.7 Influenza Type A (PCR) NEGATIVE Influenza Type B (PCR) NEGATIVE RSV RNA Qual (PCR) NEGATIVE SARS-CoV-2 RNA (RT-PCR) NEGATIVE 06/02/24 04:33 MCV 87.2 MCH 29.1 MCHC 33.3 RDW 15.7 Plt Count 175 MPV 9.7 Immature Gran % (Auto) 0.3 Neut % (Auto) 92.5 H Lymph % (Auto) 5.4 L [place] % (Auto) 1.6 L Eos % (Auto) 0.0 Baso % (Auto) 0.2 Lymph # (Auto) 0.6 L [place] # (Auto) 0.2 Eos # (Auto) 0.0 Baso # (Auto) 0.0 Abs Immat Gran (auto) 0.03 Absolute Neuts (auto) 10.1 H Absolute Nucleated RBC 0.000 Nucleated RBC % (auto) 0.0 Smear Tech's Comments VERIFIED PT INR D-Dimer High Sensitivty VBG pH VBG pCO2 VBG pO2 VBG HCO3 VBG O2 Saturation VBG Base Excess Anion Gap 13 Estim Creat Clear Calc 82.5 Estimated GFR > 60 Random Glucose 167 H Lactic Acid Calcium 8.5 Total Bilirubin AST ALT Alkaline Phosphatase B-Natriuretic Peptide Total Protein Albumin Influenza Type A (PCR) Influenza Type B (PCR) RSV RNA Qual (PCR) SARS-CoV-2 RNA (RT-PCR) Assessment and Plan (1) Acute interstitial pneumonia: Status: Acute Plan Pt is a 59-year-old female with a PMH significant for?asthma, CAD s/p stenting of RCA in 2017, HTN, osteoarthritis, and GERD who presents to the ED with?SOB, cough, and chest pain that worsening this afternoon. Pt will be admitted to the hospital for treatment and further evaluation of acute hypoxic respiratory failure in the setting of bilateral interstitial pneumonia with sepsis. Acute hypoxic respiratory in the setting of bilateral interstitial pneumonia with sepsis minimal improvement since admission, still on HFNC continue steroids and iv antibiotics resp. pathogen panel pending await Pulm input CAD/HLD Continue statin, aspirin HTN Continue losartan, nifedipine GERD Continue famotidine Full Code DVT pptx, Lovenox Quality Stroke Does the patient have a stroke diagnosis?: No VTE Prior VTE?: No VTE Risk Level:: Medical - moderate - high VTE Device Contraindication: Treatment Not Indicated VTE Drug Contraindication: N/A - Med Ordered
[2024-06-02 10:48] LABS: Adenovirus PCR Not Detected (Not Detect.); Bordetella parapertussis PCR Not Detected (Not Detect.); Bordetella pertussis PCR Not Detected (Not Detect.); Chlamydia pneumoniae PCR Not Detected (Not Detect.); Coronavirus 229E PCR Not Detected (Not Detect.); Coronavirus HKU1 PCR Not Detected (Not Detect.); Coronavirus NL63 PCR Not Detected (Not Detect.); Coronavirus OC43 PCR Detected (Not Detect.); Human metapneumovirus PCR Not Detected (Not Detect.); Influenza A PCR Not Detected (Not Detect.); Influenza B PCR Not Detected (Not Detect.); Mycoplasma pneumoniae PCR Not Detected (Not Detect.); Parainfluenza 1 PCR Not Detected (Not Detect.); Parainfluenza 2 PCR Not Detected (Not Detect.); Parainfluenza 3 PCR Not Detected (Not Detect.); Parainfluenza 4 PCR Not Detected (Not Detect.); RSV PCR Not Detected (Not Detect.); Rhino/Enterovirus PCR Not Detected (Not Detect.)
[2024-06-02 11:36] LABS: SARS-CoV-2 PCR Not Detected (Not Detect.)
[2024-06-02] MEDS: cefTRIAXone sodium 1 GM VIAL IVPUSH (14:44)
--- NOTE | 2024-06-02 14:53 | PC.NURSE ---
ytolerating NC well.
[2024-06-02] MEDS: ondansetron HCL 4 MG/2 ML VIAL IVPUSH (15:21)
[2024-06-02] MEDS: Azithromycin 500 MG in 0.9 % Sodium Chloride 250 ML 125 MG IV (15:22)
[2024-06-02] MEDS: traZODone HCL 100 MG TABLET 200 MG PO (22:22)
[2024-06-02] MEDS: Enoxaparin Sodium 40 MG/0.4 ML SYRINGE SUBCUT (22:22)
[2024-06-03] VITALS (13 sets, daily range): BP systolic 142–179; BP diastolic 58–84; PULSE 60–84; RESP 17–20; TEMP 36.1–36.8; O2SAT 92–97
[2024-06-03] MEDS: Famotidine 20 MG TABLET PO (05:56)
[2024-06-03 07:31] LABS: Hematocrit 40.7 % (37.0-47.0); Hemoglobin 13.2 g/dl (12.0-16.0); Mean Corpuscular HGB Conc 32.4 g/dl (31.0-35.0); Mean Corpuscular Hemoglobin 28.8 pg (27.0-33.0); Mean Corpuscular Volume 88.7 fL (80.0-98.0); Mean Platelet Volume 9.8 fL (9.4-12.3); Platelet Count 206 X10*3/uL (160-400); Red Blood Count 4.59 X10*6/uL (4.20-5.50); Red Cell Distribution Width 15.9 % (11.0-16.0); White Blood Count 8.1 X10*3/uL (4.8-10.8)
[2024-06-03] MEDS: Albuterol/Iprat 2.5/0.5MG 3 ML AMPUL.NEB INHALE ×4 (07:31→20:11)
[2024-06-03 07:46] LABS: Blood Urea Nitrogen 14 mg/dL (9-16); Calcium 8.7 mg/dL (8.4-10.2); Creatinine Clr Calc Pharmacy 91.6; Estimated Glomerular Filt Rate > 60; Glucose Random 131 mg/dL (60-115)
[2024-06-03] MEDS: guaiFEN/Codeine SF 200/20/10ML 10 ML LIQUID PO ×4 (07:53→20:44)
[2024-06-03 07:54] LABS: Anion Gap 13 (12-20); Carbon Dioxide 21 mmol/L (22-29); Chloride 112 mmol/L (96-108); Potassium 4.7 mmol/L (3.3-5.1); Sodium 141 mmol/L (135-145)
[2024-06-03] MEDS: Morphine Sulfate 2 MG/ML CARTRIDGE IVPUSH ×3 (07:54→20:45)
[2024-06-03] MEDS: NIFEdipine ER 30 MG TAB.ER.24 PO (07:56)
[2024-06-03] MEDS: Atorvastatin Calcium 80 MG TABLET PO (07:56)
[2024-06-03] MEDS: Aspirin Enteric Coated 81 MG TABLET.DR PO (07:56)
[2024-06-03] MEDS: Venlafaxine HCl ER 37.5 MG CAP.ER.24H PO (07:56)
[2024-06-03] MEDS: Losartan Potassium 50 MG TABLET 100 MG PO (07:59)
[2024-06-03] MEDS: 0.9 % Sodium Chloride Flush 3 ML SYRINGE IVFLUSH ×3 (08:01→20:57)
--- NOTE | 2024-06-03 09:15 | HO.PM.IMPN ---
Subjective Subjective Date of Service: 06/03/24 Interval History: sob Physical Exam Vital Signs: Vital Signs: Last Vital Signs Temp 98.2 F 06/03/24 08:00 Pulse 76 06/03/24 08:00 Resp 20 06/03/24 08:00 BP 154/84 H 06/03/24 08:00 Pulse Ox 95 06/03/24 08:00 O2 Del Method Nasal Cannula 06/03/24 08:00 O2 Flow Rate 2 06/03/24 08:00 Oxygen Flow Rate 2 06/01/24 14:08 BMI result Body Mass Index 39.1 General: AO X 3, no acute distress Resp: C crackles and expiratory wheezes bilateral, no accessory muscles used CVS: S1,S2,RRR GI: soft, non tender, non distended Neuro: motor grossly intact, alert Psych: appropriate affect, appropriate insight Objective Data Active Medications Acetaminophen (Acetaminophen 325 Mg Tablet) 650 mg PO Q6H PRN PRN Reason: Pain, Mild 1-3,fever,headache Albuterol/Ipratropium (Albuterol/Iprat 2.5/0.5mg 3 Ml Ampul.Neb) 3 ml INHALE RQ4H WHILE AWAKE [facility] Last Admin: 06/03/24 07:31 Dose: 3 ml Documented By: VICKIE Aspirin (Aspirin Enteric Coated 81 Mg Tablet.) 81 mg PO DAILY [facility] Last Admin: 06/03/24 07:56 Dose: 81 mg Documented By: LORRIE Atorvastatin Calcium (Atorvastatin Calcium 80 Mg Tablet) 80 mg PO DAILY [facility] Last Admin: 06/03/24 07:56 Dose: 80 mg Documented By: LORRIE Calcium Carbonate (Calcium Carbonate 750 Mg Tab.Chew) 750 mg PO Q4H PRN PRN Reason: Heartburn Ceftriaxone Sodium (Ceftriaxone Sodium 1 Gm Vial) 1 gm IVPUSH Q24H [facility] Last Admin: 06/02/24 14:44 Dose: 1 gm Documented By: NISHANT Enoxaparin Sodium (Enoxaparin Sodium 40 Mg/0.4 Ml Syringe) 40 mg SUBCUT Q24H [facility] Last Admin: 06/02/24 22:22 Dose: 40 mg Documented By: PATSY Famotidine (Famotidine 20 Mg Tablet) 20 mg PO DAILY@0630 [facility] Last Admin: 06/03/24 05:56 Dose: 20 mg Documented By: PATSY Fluticasone/Vilanterol (Fluticasone/Vilanterol 200/25 Blst.W.Dev) 1 puff INHALE RDAILY [facility] Last Admin: 06/02/24 09:35 Dose: 1 puff Documented By: NISHANT Guaifenesin/Codeine Phosphate (Guaifen/Codeine Sf 200/20/10ml 10 Ml Liquid) 10 ml PO Q4H PRN PRN Reason: Cough Last Admin: 06/03/24 07:53 Dose: 10 ml Documented By: LORRIE Azithromycin 500 mg/ Sodium (Chloride) 250 mls @ 125 mls/hr IV Q24H [facility] Last Infusion: 06/02/24 18:30 Dose: Infused Documented By: LORRIE Losartan Potassium (Losartan Potassium 50 Mg Tablet) 100 mg PO DAILY [facility]; Protocol Last Admin: 06/03/24 07:59 Dose: 100 mg Documented By: LORRIE Magnesium Hydroxide (Milk Of Magnesia 30 Ml Oral.Susp) 30 ml PO DAILY PRN PRN Reason: Constipation Melatonin (Melatonin 3 Mg Tablet) 6 mg PO BEDTIME PRN PRN Reason: Insomnia Methylprednisolone Sodium Succinate (Methylprednisolone Sod Succ 125 Mg/2 Ml Vial) 60 mg IVPUSH Q12H [facility] Last Admin: 06/02/24 22:24 Dose: 60 mg Documented By: PATSY Morphine Sulfate (Morphine Sulfate 2 Mg/Ml Cartridge) 2 mg IVPUSH Q4H PRN; Protocol PRN Reason: Pain, Severe (Pain Scale 7-10) Last Admin: 06/03/24 07:54 Dose: 2 mg Documented By: LORRIE Nifedipine (Nifedipine Er 30 Mg Tab.Er.24) 30 mg PO DAILY [facility]; Protocol Last Admin: 06/03/24 07:56 Dose: 30 mg Documented By: LORRIE Ondansetron HCl (Ondansetron Hcl 4 Mg/2 Ml Vial) 4 mg IVPUSH Q8H PRN PRN Reason: Nausea and Vomiting Last Admin: 06/02/24 15:21 Dose: 4 mg Documented By: NISHANT Senna/Docusate Sodium (Sennosides/Docusate Sodium Tablet) 1 tab PO BEDTIME PRN PRN Reason: Constipation Sodium Chloride (0.9 % Sodium Chloride Flush 3 Ml Syringe) 3 ml IVFLUSH QSHIFT [facility] Last Admin: 06/03/24 08:01 Dose: 3 ml Documented By: LORRIE Trazodone HCl (Trazodone Hcl 100 Mg Tablet) 200 mg PO BEDTIME [facility] Last Admin: 06/02/24 22:22 Dose: 200 mg Documented By: PATSY Venlafaxine HCl (Venlafaxine Hcl Er 37.5 Mg Cap.Er.24h) 37.5 mg PO DAILY [facility] Last Admin: 06/03/24 07:56 Dose: 37.5 mg Documented By: LORRIE Labs 06/03/24 07:03 06/03/24 07:03 Labs: Laboratory Results - last 24 hr 06/01/24 06/03/24 15:19 07:03 MCV 88.7 MCH 28.8 MCHC 32.4 RDW 15.9 Plt Count 206 MPV 9.8 Absolute Nucleated RBC 0.000 Nucleated RBC % (auto) 0.0 Anion Gap 13 Estim Creat Clear Calc 91.6 Estimated GFR > 60 Random Glucose 131 H Calcium 8.7 Respiratory Panel Rowe See Note Adenovirus (Rapid PCR) Not Detected B.pert (TEM-PCR) Not Detected B.parapertussis DNA PCR Not Detected C. pneumoniae DNA (PCR) Not Detected Coronavirus OC43 (PCR) Detected A Coronavirus HKU1 (PCR) Not Detected Coronavirus 229E (PCR) Not Detected Coronavirus NL63 (PCR) Not Detected Human Metapneumovir PCR Not Detected Influenza A (RT-PCR) Not Detected Influenza B (RT-PCR) Not Detected M. pneumoniae (PCR) Not Detected Parainfluenza 1 (PCR) Not Detected Parainfluenza 2 (PCR) Not Detected Parainfluenza 3 (PCR) Not Detected Parainfluenza 4 (PCR) Not Detected RSV (PCR) Not Detected Entero/Rhino (PCR) Not Detected SARS-CoV-2 RNA (RT-PCR) Not Detected Microbiology Microbiology Results: Microbiology 06/01/24 16:07 Blood Culture - Preliminary Blood - Venous No growth after 24 hours. 06/01/24 15:49 Blood Culture - Preliminary Blood - Venous No growth after 24 hours. Assessment and Plan (1) Morbid obesity due to excess calories: Status: Acute Plan 59F PMH mild intermittent asthma, coronary artery disease status post stent, hypertension, osteoarthritis, GERD, obesity presented with shortness of breath Acute hypoxic respiratory failure secondary to viral sepsis due to non COVID coronavirus complicated by mild intermittent asthma with acute decompensation Now off high-flow Continue to wean O2 Continue empiric IV ceftriaxone and azithromycin as well as IV steroids, DuoNebs Pulm eval Coronary artery disease Continue aspirin and statin Hypertension Continue losartan and nifedipine DVT prophylaxis with Lovenox Full Code reason for continued hospitalization: Hypoxia Quality Stroke Does the patient have a stroke diagnosis?: No VTE Prior VTE?: No VTE Risk Level:: Medical - moderate - high VTE Device Contraindication: Treatment Not Indicated VTE Drug Contraindication: N/A - Med Ordered
[2024-06-03] MEDS: Fluticasone/Vilanterol 200/25 BLST.W.DEV 1 PUFF INHALE (11:29)
--- NOTE | 2024-06-03 11:52 | PM.CNPUL ---
History of Present Illness History of Present Illness Consult date: 06/03/24 Chief complaint: Dyspnea Narrative: This is an inpatient pulmonary consultation. Pt is a 59-year-old female with a PMH significant for?asthma, who presents to the ED with?SOB, cough, and chest pain that worsening this afternoon. Pt reports she came down with a cold last month which seemed to have resolved on its own. However she developed a dry cough and SOB a couple of weeks ago that have since progressively worsened. Has also experienced subjective fever and chills, increased fatigue, and difficulty sleeping. In the ED pt was tachycardic up to 118, tachypneic up to 34, and initially hypertensive at 172/76. Hypoxia noted by EMS and arrived on OxyMask which has now been transitioned to high-flow. Labs were significant for leukocytosis of 13.6, otherwise grossly unremarkable and around baseline for pt. Stable H&H. No significant electrolyte abnormalities. Renal and hepatic function baseline. Serial troponins negative. BNP WNL. D-dimer negative. Respiratory panel pending. I did personally review her CT scan of the chest demonstrating areas of ground-glass opacity suggesting of interstitial pneumonia. Her respiratory viral panel was positive for coronavirus. She also was started on antibiotics and placed on high-flow. Now she wean down to couple of L. She still having her significant coughing spells. Overall she is making good improvement. Review of Systems Review of Systems: Constitutional : No Weight loss, + Fever, + Chills Cardiovascular : + Chest Pain, + SOB Respiratory : +Cough, + Sputum Gastrointestinal : No Nausea, No Vomiting Musculoskeletal : Right 5th finger pain Neuro : No Weakness, No Numbness, No Paresthesias, No Loss of Consciousness, No Dizziness, No Headache Psych : No Anxiety/Panic, No Depression, No SI/HI/AH/VH, No Social Issues, Heme/Lymph: No Bruising, No Bleeding,No Lymphadenopathy Endocrine : No Polyuria, No Polydipsia, No Temperature Intolerance [facility] Past Medical History Medical History CAD (coronary artery disease) Environmental allergies Anxiety, generalized Chronic GERD Asthma, moderate Constipation by delayed colonic transit Lipid disorder Chronic vertigo Hypertension, essential Difficulty sleeping Family History Family History Father Myocardial infarction Mother CHF (congestive heart failure) History of back surgery Brother Acute myocardial infarction Sister Acute myocardial infarction Maternal Grandfather Colon cancer Maternal Grandmother Cancer Paternal Grandmother History of heart attack Cervical cancer Paternal Grandfather No problems noted. Maternal Uncle History of heart attack Sister No problems noted. Brother No problems noted. Brother No problems noted. Brother No problems noted. Surgical History Surgical History Stented coronary artery History of shoulder surgery History of tooth extraction History of left oophorectomy Social History Social History Household Members: Spouse Housing: Apartment Do you presently have visiting nurse or other home services: No Alcohol intake: current Alcohol intake frequency: a few times a week Patient Tobacco Use Status: Former Tobacco user e-Cigarette/Vaping Use: Never Used service: No Current occupational status: employed Current occupation: left handed Gender identity: Female Cognitive needs: No Hearing needs: No Vision needs: No Meds Allergies Allergy/AdvReac Type Severity Reaction Status Date / Time bee pollen [BEE STINGS] Allergy Severe ANAPHYLAXIS Verified 06/01/24 14:12 spider venom [SPIDER BITES] Allergy Mild SWELLING Verified 06/01/24 14:12 acetaminophen [Vicodin] Allergy Unknown nausea and Verified 06/01/24 14:12 vomiting hydrocodone [Vicodin] Allergy Unknown nausea and Verified 06/01/24 14:12 vomiting Active Medications: Current Medications Acetaminophen (Acetaminophen 325 Mg Tablet) 650 mg PO Q6H PRN PRN Reason: Pain, Mild 1-3,fever,headache Albuterol/Ipratropium (Albuterol/Iprat 2.5/0.5mg 3 Ml Ampul.Neb) 3 ml INHALE RQ4H WHILE AWAKE COUNTS INCLUDE 234 BEDS AT THE [facility] Last Admin: 06/03/24 11:28 Dose: 3 ml Aspirin (Aspirin Enteric Coated 81 Mg Tablet.) 81 mg PO DAILY COUNTS INCLUDE 234 BEDS AT THE [facility] Last Admin: 06/03/24 07:56 Dose: 81 mg Atorvastatin Calcium (Atorvastatin Calcium 80 Mg Tablet) 80 mg PO DAILY COUNTS INCLUDE 234 BEDS AT THE [facility] Last Admin: 06/03/24 07:56 Dose: 80 mg Calcium Carbonate (Calcium Carbonate 750 Mg Tab.Chew) 750 mg PO Q4H PRN PRN Reason: Heartburn Ceftriaxone Sodium (Ceftriaxone Sodium 1 Gm Vial) 1 gm IVPUSH Q24H COUNTS INCLUDE 234 BEDS AT THE [facility] Last Admin: 06/02/24 14:44 Dose: 1 gm Enoxaparin Sodium (Enoxaparin Sodium 40 Mg/0.4 Ml Syringe) 40 mg SUBCUT Q24H COUNTS INCLUDE 234 BEDS AT THE [facility] Last Admin: 06/02/24 22:22 Dose: 40 mg Famotidine (Famotidine 20 Mg Tablet) 20 mg PO DAILY@0630 COUNTS INCLUDE 234 BEDS AT THE [facility] Last Admin: 06/03/24 05:56 Dose: 20 mg Fluticasone/Vilanterol (Fluticasone/Vilanterol 200/25 Blst.W.Dev) 1 puff INHALE RDAILY COUNTS INCLUDE 234 BEDS AT THE [facility] Last Admin: 06/03/24 11:29 Dose: 1 puff Guaifenesin/Codeine Phosphate (Guaifen/Codeine Sf 200/20/10ml 10 Ml Liquid) 10 ml PO Q4H PRN PRN Reason: Cough Last Admin: 06/03/24 07:53 Dose: 10 ml Azithromycin 500 mg/ Sodium (Chloride) 250 mls @ 125 mls/hr IV Q24H COUNTS INCLUDE 234 BEDS AT THE [facility] Last Infusion: 06/02/24 18:30 Dose: Infused Losartan Potassium (Losartan Potassium 50 Mg Tablet) 100 mg PO DAILY COUNTS INCLUDE 234 BEDS AT THE [facility]; Protocol Last Admin: 06/03/24 07:59 Dose: 100 mg Magnesium Hydroxide (Milk Of Magnesia 30 Ml Oral.Susp) 30 ml PO DAILY PRN PRN Reason: Constipation Melatonin (Melatonin 3 Mg Tablet) 6 mg PO BEDTIME PRN PRN Reason: Insomnia Methylprednisolone Sodium Succinate (Methylprednisolone Sod Succ 125 Mg/2 Ml Vial) 60 mg IVPUSH Q12H COUNTS INCLUDE 234 BEDS AT THE [facility] Last Admin: 06/02/24 22:24 Dose: 60 mg Morphine Sulfate (Morphine Sulfate 2 Mg/Ml Cartridge) 2 mg IVPUSH Q4H PRN; Protocol PRN Reason: Pain, Severe (Pain Scale 7-10) Last Admin: 06/03/24 07:54 Dose: 2 mg Nifedipine (Nifedipine Er 30 Mg Tab.Er.24) 30 mg PO DAILY COUNTS INCLUDE 234 BEDS AT THE [facility]; Protocol Last Admin: 06/03/24 07:56 Dose: 30 mg Ondansetron HCl (Ondansetron Hcl 4 Mg/2 Ml Vial) 4 mg IVPUSH Q8H PRN PRN Reason: Nausea and Vomiting Last Admin: 06/02/24 15:21 Dose: 4 mg Senna/Docusate Sodium (Sennosides/Docusate Sodium Tablet) 1 tab PO BEDTIME PRN PRN Reason: Constipation Sodium Chloride (0.9 % Sodium Chloride Flush 3 Ml Syringe) 3 ml IVFLUSH QSHIFT COUNTS INCLUDE 234 BEDS AT THE [facility] Last Admin: 06/03/24 08:01 Dose: 3 ml Trazodone HCl (Trazodone Hcl 100 Mg Tablet) 200 mg PO BEDTIME COUNTS INCLUDE 234 BEDS AT THE [facility] Last Admin: 06/02/24 22:22 Dose: 200 mg Venlafaxine HCl (Venlafaxine Hcl Er 37.5 Mg Cap.Er.24h) 37.5 mg PO DAILY COUNTS INCLUDE 234 BEDS AT THE [facility] Last Admin: 06/03/24 07:56 Dose: 37.5 mg Home Medications ?Medication ?Instructions ?Recorded ?Confirmed ?Last Taken ?Type albuterol sulfate 90 mcg/actuation 1 puff inhalation Q6H PRN for 06/01/24 06/01/24 Unknown History aerosol inhaler wheezing losartan 100 mg tablet 100 mg PO DAILY 06/01/24 06/01/24 Unknown History sennosides 8.6 mg-docusate sodium 1 tab-cap PO BEDTIME PRN 06/01/24 06/01/24 Unknown History 50 mg tablet Constipation trazodone 100 mg tablet 200 mg PO BEDTIME 06/01/24 06/01/24 06/01/24 History venlafaxine 37.5 mg 37.5 mg PO DAILY 06/01/24 06/01/24 Unknown History capsule,extended release 24 hr Physical Exam Vital Signs: Vital Signs: Last Vital Signs Temp 97.0 F 06/03/24 11:37 Pulse 69 06/03/24 11:37 Resp 20 06/03/24 11:37 BP 146/65 H 06/03/24 11:37 Pulse Ox 97 06/03/24 11:37 O2 Del Method Humidified O2 06/03/24 11:37 O2 Flow Rate 2 06/03/24 11:37 Oxygen Flow Rate 2 06/01/24 14:08 BMI result Body Mass Index 39.1 General: AO X 3, no acute distress Resp: C crackles and expiratory wheezes bilateral, no accessory muscles used CVS: S1,S2,RRR GI: soft, non tender, non distended Neuro: motor grossly intact, alert Psych: appropriate affect, appropriate insight Results Laboratory Findings 06/03/24 07:03 06/03/24 07:03 ABG, PT/INR, D-dimer: PT/INR, D-dimer PT 11.4 SEC (10.9-12.4) 06/01/24 14:15 INR 1.0 (0.9-1.1) 06/01/24 14:15 Abnormal lab findings: Abnormal Labs 06/01/24 06/01/24 06/01/24 14:15 15:19 17:32 WBC 13.6 H Neut % (Auto) 91.1 H Lymph % (Auto) 3.9 L Hanson % (Auto) Lymph # (Auto) 0.5 L Abs Immat Gran (auto) 0.06 H Absolute Neuts (auto) 12.4 H VBG HCO3 18 L Chloride 109 H Carbon Dioxide 20 L Anion Gap 11 L Random Glucose 146 H Coronavirus OC43 (PCR) Detected A 06/02/24 06/03/24 04:33 07:03 WBC 10.9 H Neut % (Auto) 92.5 H Lymph % (Auto) 5.4 L Hanson % (Auto) 1.6 L Lymph # (Auto) 0.6 L Abs Immat Gran (auto) Absolute Neuts (auto) 10.1 H VBG HCO3 Chloride 114 H 112 H Carbon Dioxide 18 L 21 L Anion Gap Random Glucose 167 H 131 H Coronavirus OC43 (PCR) Microbiology: Microbiology 06/01/24 16:07 Blood - Venous Blood Culture - Preliminary No growth after 24 hours. 06/01/24 15:49 Blood - Venous Blood Culture - Preliminary No growth after 24 hours. Assessment and Plan (1) Acute interstitial pneumonia: Status: Acute (2) Hypoxia: Status: Acute (3) Coronavirus infection: Status: Acute Plan continue 8 days of antibiotics solumedrol taper to prednisone continue respiratory therapy cough suppressants titrate Oxygen to keep pox >90% OOB to chair Procedures Date of Service Date of Service: 06/03/24
[2024-06-03] MEDS: methylPREDNISolone Sod Succ 125 MG/2 ML VIAL 60 MG IVPUSH ×2 (12:00→20:54)
[2024-06-03] MEDS: cefTRIAXone sodium 1 GM VIAL IVPUSH (16:16)
[2024-06-03] MEDS: Azithromycin 500 MG in 0.9 % Sodium Chloride 250 ML 125 MG IV (16:16)
[2024-06-03] MEDS: Sennosides/Docusate Sodium TABLET 1 TAB PO (20:44)
[2024-06-03] MEDS: traZODone HCL 100 MG TABLET 200 MG PO (20:44)
[2024-06-03] MEDS: Enoxaparin Sodium 40 MG/0.4 ML SYRINGE SUBCUT (20:53)
[2024-06-04] VITALS (13 sets, daily range): BP systolic 154–178; BP diastolic 71–84; PULSE 16–90; RESP 17–66; TEMP 36.2–37.3; O2SAT 91–99
[2024-06-04] MEDS: Morphine Sulfate 2 MG/ML CARTRIDGE IVPUSH ×4 (04:21→21:11)
[2024-06-04] MEDS: guaiFEN/Codeine SF 200/20/10ML 10 ML LIQUID PO ×5 (04:21→21:15)
[2024-06-04] MEDS: Famotidine 20 MG TABLET PO (05:55)
[2024-06-04] MEDS: Fluticasone/Vilanterol 200/25 BLST.W.DEV 1 PUFF INHALE (07:36)
[2024-06-04] MEDS: Albuterol/Iprat 2.5/0.5MG 3 ML AMPUL.NEB INHALE ×4 (07:37→19:54)
[2024-06-04] MEDS: Aspirin Enteric Coated 81 MG TABLET.DR PO (07:56)
[2024-06-04] MEDS: Venlafaxine HCl ER 37.5 MG CAP.ER.24H PO (07:56)
[2024-06-04] MEDS: Atorvastatin Calcium 80 MG TABLET PO (07:56)
[2024-06-04] MEDS: Losartan Potassium 50 MG TABLET 100 MG PO (07:56)
[2024-06-04] MEDS: NIFEdipine ER 30 MG TAB.ER.24 PO (07:57)
[2024-06-04] MEDS: 0.9 % Sodium Chloride Flush 3 ML SYRINGE IVFLUSH ×3 (07:57→20:17)
--- NOTE | 2024-06-04 10:30 | HO.PM.IMPN ---
Subjective Subjective Date of Service: 06/04/24 Interval History: sob Physical Exam Vital Signs: Vital Signs: Last Vital Signs Temp 97.5 F 06/04/24 07:22 Pulse 58 06/04/24 07:37 Resp 17 06/04/24 07:37 BP 159/80 H 06/04/24 07:22 Pulse Ox 92 06/04/24 07:22 O2 Del Method Nasal Cannula 06/04/24 07:22 O2 Flow Rate 2 06/04/24 07:22 Oxygen Flow Rate 2 06/01/24 14:08 BMI result Body Mass Index 39.1 General: AO X 3, no acute distress Resp: C crackles and expiratory wheezes bilateral, no accessory muscles used CVS: S1,S2,RRR GI: soft, non tender, non distended Neuro: motor grossly intact, alert Psych: appropriate affect, appropriate insight Objective Data Active Medications Acetaminophen (Acetaminophen 325 Mg Tablet) 650 mg PO Q6H PRN PRN Reason: Pain, Mild 1-3,fever,headache Albuterol/Ipratropium (Albuterol/Iprat 2.5/0.5mg 3 Ml Ampul.Neb) 3 ml INHALE RQ4H WHILE AWAKE [facility] Last Admin: 06/04/24 07:37 Dose: 3 ml Documented By: VICKIE Aspirin (Aspirin Enteric Coated 81 Mg Tablet.) 81 mg PO DAILY [facility] Last Admin: 06/04/24 07:56 Dose: 81 mg Documented By: MENA Atorvastatin Calcium (Atorvastatin Calcium 80 Mg Tablet) 80 mg PO DAILY [facility] Last Admin: 06/04/24 07:56 Dose: 80 mg Documented By: MENA Calcium Carbonate (Calcium Carbonate 750 Mg Tab.Chew) 750 mg PO Q4H PRN PRN Reason: Heartburn Ceftriaxone Sodium (Ceftriaxone Sodium 1 Gm Vial) 1 gm IVPUSH Q24H [facility] Last Admin: 06/03/24 16:16 Dose: 1 gm Documented By: LORRIE Enoxaparin Sodium (Enoxaparin Sodium 40 Mg/0.4 Ml Syringe) 40 mg SUBCUT Q24H [facility] Last Admin: 06/03/24 20:53 Dose: 40 mg Documented By: LUCY Famotidine (Famotidine 20 Mg Tablet) 20 mg PO DAILY@0630 [facility] Last Admin: 06/04/24 05:55 Dose: 20 mg Documented By: LUCY Fluticasone/Vilanterol (Fluticasone/Vilanterol 200/25 Blst.W.Dev) 1 puff INHALE RDAILY [facility] Last Admin: 06/04/24 07:36 Dose: 1 puff Documented By: VICKIE Guaifenesin/Codeine Phosphate (Guaifen/Codeine Sf 200/20/10ml 10 Ml Liquid) 10 ml PO Q4H PRN PRN Reason: Cough Last Admin: 06/04/24 07:55 Dose: 10 ml Documented By: MENA Azithromycin 500 mg/ Sodium (Chloride) 250 mls @ 125 mls/hr IV Q24H [facility] Last Infusion: 06/03/24 19:20 Dose: Infused Documented By: LUCY Losartan Potassium (Losartan Potassium 50 Mg Tablet) 100 mg PO DAILY [facility]; Protocol Last Admin: 06/04/24 07:56 Dose: 100 mg Documented By: MENA Magnesium Hydroxide (Milk Of Magnesia 30 Ml Oral.Susp) 30 ml PO DAILY PRN PRN Reason: Constipation Melatonin (Melatonin 3 Mg Tablet) 6 mg PO BEDTIME PRN PRN Reason: Insomnia Methylprednisolone Sodium Succinate (Methylprednisolone Sod Succ 125 Mg/2 Ml Vial) 60 mg IVPUSH Q12H [facility] Last Admin: 06/03/24 20:54 Dose: 60 mg Documented By: LUCY Morphine Sulfate (Morphine Sulfate 2 Mg/Ml Cartridge) 2 mg IVPUSH Q4H PRN; Protocol PRN Reason: Pain, Severe (Pain Scale 7-10) Last Admin: 06/04/24 07:55 Dose: 2 mg Documented By: MENA Nifedipine (Nifedipine Er 30 Mg Tab.Er.24) 30 mg PO DAILY [facility]; Protocol Last Admin: 06/04/24 07:57 Dose: 30 mg Documented By: MENA Ondansetron HCl (Ondansetron Hcl 4 Mg/2 Ml Vial) 4 mg IVPUSH Q8H PRN PRN Reason: Nausea and Vomiting Last Admin: 06/02/24 15:21 Dose: 4 mg Documented By: NISHANT Senna/Docusate Sodium (Sennosides/Docusate Sodium Tablet) 1 tab PO BEDTIME PRN PRN Reason: Constipation Last Admin: 06/03/24 20:44 Dose: 1 tab Documented By: LUCY Sodium Chloride (0.9 % Sodium Chloride Flush 3 Ml Syringe) 3 ml IVFLUSH QSHIFT [facility] Last Admin: 06/04/24 07:57 Dose: 3 ml Documented By: MENA Trazodone HCl (Trazodone Hcl 100 Mg Tablet) 200 mg PO BEDTIME [facility] Last Admin: 06/03/24 20:44 Dose: 200 mg Documented By: LUCY Venlafaxine HCl (Venlafaxine Hcl Er 37.5 Mg Cap.Er.24h) 37.5 mg PO DAILY [facility] Last Admin: 06/04/24 07:56 Dose: 37.5 mg Documented By: MENA Labs 06/03/24 07:03 06/03/24 07:03 Microbiology Microbiology Results: Microbiology 06/01/24 16:07 Blood Culture - Preliminary Blood - Venous No growth after 48 hours. 06/01/24 15:49 Blood Culture - Preliminary Blood - Venous No growth after 48 hours. Assessment and Plan (1) Morbid obesity due to excess calories: Status: Acute Plan 59F PMH mild intermittent asthma, coronary artery disease status post stent, hypertension, osteoarthritis, GERD, obesity presented with shortness of breath Acute hypoxic respiratory failure secondary to viral sepsis due to non COVID coronavirus complicated by mild intermittent asthma with acute decompensation Now off high-flow Continue to wean O2 now 92% on 2 L Continue empiric IV ceftriaxone and azithromycin as well as IV steroids, DuoNebs Pulm appreciated Coronary artery disease Continue aspirin and statin Hypertension Continue losartan and nifedipine DVT prophylaxis with Lovenox Full Code reason for continued hospitalization: Hypoxia Quality Stroke Does the patient have a stroke diagnosis?: No VTE Prior VTE?: No VTE Risk Level:: Medical - moderate - high VTE Device Contraindication: Treatment Not Indicated VTE Drug Contraindication: N/A - Med Ordered
[2024-06-04] MEDS: methylPREDNISolone Sod Succ 125 MG/2 ML VIAL 60 MG IVPUSH ×2 (11:36→20:13)
[2024-06-04] MEDS: cefTRIAXone sodium 1 GM VIAL IVPUSH (17:15)
[2024-06-04] MEDS: Azithromycin 500 MG in 0.9 % Sodium Chloride 250 ML 125 MG IV (17:15)
[2024-06-04] MEDS: Enoxaparin Sodium 40 MG/0.4 ML SYRINGE SUBCUT (20:14)
[2024-06-04] MEDS: traZODone HCL 100 MG TABLET 200 MG PO (20:14)
[2024-06-05] VITALS (10 sets, daily range): BP systolic 143–176; BP diastolic 68–87; PULSE 63–90; RESP 16–18; TEMP 36–36.8; O2SAT 91–100
[2024-06-05] MEDS: guaiFEN/Codeine SF 200/20/10ML 10 ML LIQUID PO ×5 (02:42→22:53)
[2024-06-05] MEDS: Morphine Sulfate 2 MG/ML CARTRIDGE IVPUSH ×4 (02:43→22:55)
[2024-06-05] MEDS: Famotidine 20 MG TABLET PO (06:38)
[2024-06-05] MEDS: Fluticasone/Vilanterol 200/25 BLST.W.DEV 1 PUFF INHALE (07:26)
[2024-06-05] MEDS: Albuterol/Iprat 2.5/0.5MG 3 ML AMPUL.NEB INHALE ×4 (07:27→19:37)
[2024-06-05] MEDS: methylPREDNISolone Sod Succ 125 MG/2 ML VIAL 60 MG IVPUSH ×2 (08:42→21:19)
[2024-06-05] MEDS: Aspirin Enteric Coated 81 MG TABLET.DR PO (08:42)
[2024-06-05] MEDS: Atorvastatin Calcium 80 MG TABLET PO (08:42)
[2024-06-05] MEDS: 0.9 % Sodium Chloride Flush 3 ML SYRINGE IVFLUSH ×3 (08:42→21:30)
[2024-06-05] MEDS: NIFEdipine ER 30 MG TAB.ER.24 PO (08:42)
[2024-06-05] MEDS: Venlafaxine HCl ER 37.5 MG CAP.ER.24H PO (08:42)
[2024-06-05] MEDS: Losartan Potassium 50 MG TABLET 100 MG PO (08:42)
--- NOTE | 2024-06-05 09:58 | P.PNIM_ITS ---
Subjective Subjective Date of Service: 06/05/24 Interval History: sob Physical Exam 2 Vital Signs: Vital Signs: Last Vital Signs Temp 97.4 F 06/05/24 07:11 Pulse 80 06/05/24 07:27 Resp 17 06/05/24 07:27 BP 169/87 H 06/05/24 07:11 Pulse Ox 94 06/05/24 07:11 O2 Del Method Room Air 06/05/24 07:11 O2 Flow Rate 2 06/04/24 11:48 Oxygen Flow Rate 2 06/01/24 14:08 BMI result Body Mass Index 39.1 General: AO X 3, no acute distress Resp: C crackles and expiratory wheezes bilateral, no accessory muscles used CVS: S1,S2,RRR GI: soft, non tender, non distended Neuro: motor grossly intact, alert Psych: appropriate affect, appropriate insight Objective Data Active Medications Acetaminophen (Acetaminophen 325 Mg Tablet) 650 mg PO Q6H PRN PRN Reason: Pain, Mild 1-3,fever,headache Albuterol/Ipratropium (Albuterol/Iprat 2.5/0.5mg 3 Ml Ampul.Neb) 3 ml INHALE RQ4H WHILE AWAKE [facility] Last Admin: 06/05/24 07:27 Dose: 3 ml Documented By: VICKIE Aspirin (Aspirin Enteric Coated 81 Mg Tablet.) 81 mg PO DAILY [facility] Last Admin: 06/05/24 08:42 Dose: 81 mg Documented By: MENA Atorvastatin Calcium (Atorvastatin Calcium 80 Mg Tablet) 80 mg PO DAILY [facility] Last Admin: 06/05/24 08:42 Dose: 80 mg Documented By: MENA Calcium Carbonate (Calcium Carbonate 750 Mg Tab.Chew) 750 mg PO Q4H PRN PRN Reason: Heartburn Ceftriaxone Sodium (Ceftriaxone Sodium 1 Gm Vial) 1 gm IVPUSH Q24H [facility] Last Admin: 06/04/24 17:15 Dose: 1 gm Documented By: MENA Enoxaparin Sodium (Enoxaparin Sodium 40 Mg/0.4 Ml Syringe) 40 mg SUBCUT Q24H [facility] Last Admin: 06/04/24 20:14 Dose: 40 mg Documented By: BETO Famotidine (Famotidine 20 Mg Tablet) 20 mg PO DAILY@0630 [facility] Last Admin: 06/05/24 06:38 Dose: 20 mg Documented By: BETO Fluticasone/Vilanterol (Fluticasone/Vilanterol 200/25 Blst.W.Dev) 1 puff INHALE RDAILY [facility] Last Admin: 06/05/24 07:26 Dose: 1 puff Documented By: VICKIE Guaifenesin/Codeine Phosphate (Guaifen/Codeine Sf 200/20/10ml 10 Ml Liquid) 10 ml PO Q4H PRN PRN Reason: Cough Last Admin: 06/05/24 08:42 Dose: 10 ml Documented By: MENA Azithromycin 500 mg/ Sodium (Chloride) 250 mls @ 125 mls/hr IV Q24H [facility] Last Infusion: 06/04/24 19:33 Dose: Infused Documented By: BETO Losartan Potassium (Losartan Potassium 50 Mg Tablet) 100 mg PO DAILY [facility]; Protocol Last Admin: 06/05/24 08:42 Dose: 100 mg Documented By: MENA Magnesium Hydroxide (Milk Of Magnesia 30 Ml Oral.Susp) 30 ml PO DAILY PRN PRN Reason: Constipation Melatonin (Melatonin 3 Mg Tablet) 6 mg PO BEDTIME PRN PRN Reason: Insomnia Methylprednisolone Sodium Succinate (Methylprednisolone Sod Succ 125 Mg/2 Ml Vial) 60 mg IVPUSH Q12H [facility] Last Admin: 06/05/24 08:42 Dose: 60 mg Documented By: MENA Morphine Sulfate (Morphine Sulfate 2 Mg/Ml Cartridge) 2 mg IVPUSH Q4H PRN; Protocol PRN Reason: Pain, Severe (Pain Scale 7-10) Last Admin: 06/05/24 02:43 Dose: 2 mg Documented By: BETO Nifedipine (Nifedipine Er 30 Mg Tab.Er.24) 30 mg PO DAILY [facility]; Protocol Last Admin: 06/05/24 08:42 Dose: 30 mg Documented By: MENA Ondansetron HCl (Ondansetron Hcl 4 Mg/2 Ml Vial) 4 mg IVPUSH Q8H PRN PRN Reason: Nausea and Vomiting Last Admin: 06/02/24 15:21 Dose: 4 mg Documented By: NISHANT Senna/Docusate Sodium (Sennosides/Docusate Sodium Tablet) 1 tab PO BEDTIME PRN PRN Reason: Constipation Last Admin: 06/03/24 20:44 Dose: 1 tab Documented By: LUCY Sodium Chloride (0.9 % Sodium Chloride Flush 3 Ml Syringe) 3 ml IVFLUSH QSHIFT [facility] Last Admin: 06/05/24 08:42 Dose: 3 ml Documented By: MENA Trazodone HCl (Trazodone Hcl 100 Mg Tablet) 200 mg PO BEDTIME [facility] Last Admin: 06/04/24 20:14 Dose: 200 mg Documented By: BETO Venlafaxine HCl (Venlafaxine Hcl Er 37.5 Mg Cap.Er.24h) 37.5 mg PO DAILY [facility] Last Admin: 06/05/24 08:42 Dose: 37.5 mg Documented By: MENA Labs 06/03/24 07:03 06/03/24 07:03 Assessment and Plan (1) Morbid obesity due to excess calories: Status: Acute Plan 59F PMH mild intermittent asthma, coronary artery disease status post stent, hypertension, osteoarthritis, GERD, obesity presented with shortness of breath Acute hypoxic respiratory failure secondary to viral sepsis due to non COVID coronavirus complicated by mild intermittent asthma with acute decompensation Now off high-flow weaned down to room air Continue empiric IV ceftriaxone and azithromycin as well as IV steroids, DuoNebs Pulm appreciated Coronary artery disease Continue aspirin and statin Hypertension Continue losartan and nifedipine DVT prophylaxis with Lovenox Full Code reason for continued hospitalization: sob, coughing fits Quality Stroke Does the patient have a stroke diagnosis?: No VTE Prior VTE?: No VTE Risk Level:: Medical - moderate - high VTE Device Contraindication: Treatment Not Indicated VTE Drug Contraindication: N/A - Med Ordered
[2024-06-05] MEDS: cefTRIAXone sodium 1 GM VIAL IVPUSH (13:39)
[2024-06-05] MEDS: Milk of Magnesia 30 ML ORAL.SUSP PO (15:09)
[2024-06-05] MEDS: Azithromycin 500 MG in 0.9 % Sodium Chloride 250 ML 125 MG IV (18:01)
[2024-06-05] MEDS: Enoxaparin Sodium 40 MG/0.4 ML SYRINGE SUBCUT (21:19)
[2024-06-05] MEDS: traZODone HCL 100 MG TABLET 200 MG PO (22:53)
[2024-06-06] VITALS (10 sets, daily range): BP systolic 146–170; BP diastolic 59–80; PULSE 65–94; RESP 16–19; TEMP 36.1–37; O2SAT 92–95
[2024-06-06] MEDS: guaiFEN/Codeine SF 200/20/10ML 10 ML LIQUID PO ×4 (03:53→20:43)
[2024-06-06] MEDS: Morphine Sulfate 2 MG/ML CARTRIDGE IVPUSH ×3 (03:53→20:43)
[2024-06-06] MEDS: Famotidine 20 MG TABLET PO (05:34)
[2024-06-06] MEDS: Sennosides/Docusate Sodium TABLET 1 TAB PO (08:32)
[2024-06-06] MEDS: Atorvastatin Calcium 80 MG TABLET PO (08:32)
[2024-06-06] MEDS: Losartan Potassium 50 MG TABLET 100 MG PO (08:32)
[2024-06-06] MEDS: Venlafaxine HCl ER 37.5 MG CAP.ER.24H PO (08:33)
[2024-06-06] MEDS: NIFEdipine ER 30 MG TAB.ER.24 PO (08:33)
[2024-06-06] MEDS: 0.9 % Sodium Chloride Flush 3 ML SYRINGE IVFLUSH ×2 (08:33→14:36)
[2024-06-06] MEDS: Aspirin Enteric Coated 81 MG TABLET.DR PO (08:33)
[2024-06-06] MEDS: methylPREDNISolone Sod Succ 125 MG/2 ML VIAL 60 MG IVPUSH ×2 (08:34→20:45)
--- NOTE | 2024-06-06 08:57 | P.PNIM_ITS ---
Subjective Subjective Date of Service: 06/06/24 Interval History: sob Physical Exam 2 Vital Signs: Vital Signs: Last Vital Signs Temp 97.1 F 06/06/24 07:56 Pulse 94 06/06/24 07:56 Resp 19 06/06/24 07:56 BP 160/79 H 06/06/24 07:56 Pulse Ox 95 06/06/24 07:56 O2 Del Method Room Air 06/06/24 07:56 O2 Flow Rate 2 06/04/24 11:48 Oxygen Flow Rate 2 06/01/24 14:08 BMI result Body Mass Index 39.1 General: AO X 3, no acute distress Resp: C crackles and expiratory wheezes bilateral, no accessory muscles used CVS: S1,S2,RRR GI: soft, non tender, non distended Neuro: motor grossly intact, alert Psych: appropriate affect, appropriate insight Objective Data Active Medications Acetaminophen (Acetaminophen 325 Mg Tablet) 650 mg PO Q6H PRN PRN Reason: Pain, Mild 1-3,fever,headache Albuterol/Ipratropium (Albuterol/Iprat 2.5/0.5mg 3 Ml Ampul.Neb) 3 ml INHALE RQ4H WHILE AWAKE [facility] Last Admin: 06/05/24 19:37 Dose: 3 ml Documented By: RICAH Aspirin (Aspirin Enteric Coated 81 Mg Tablet.) 81 mg PO DAILY [facility] Last Admin: 06/06/24 08:33 Dose: 81 mg Documented By: MENA Atorvastatin Calcium (Atorvastatin Calcium 80 Mg Tablet) 80 mg PO DAILY [facility] Last Admin: 06/06/24 08:32 Dose: 80 mg Documented By: MENA Calcium Carbonate (Calcium Carbonate 750 Mg Tab.Chew) 750 mg PO Q4H PRN PRN Reason: Heartburn Ceftriaxone Sodium (Ceftriaxone Sodium 1 Gm Vial) 1 gm IVPUSH Q24H [facility] Last Admin: 06/05/24 13:39 Dose: 1 gm Documented By: MENA Enoxaparin Sodium (Enoxaparin Sodium 40 Mg/0.4 Ml Syringe) 40 mg SUBCUT Q24H [facility] Last Admin: 06/05/24 21:19 Dose: 40 mg Documented By: VAN Famotidine (Famotidine 20 Mg Tablet) 20 mg PO DAILY@0630 [facility] Last Admin: 06/06/24 05:34 Dose: 20 mg Documented By: VAN Fluticasone/Vilanterol (Fluticasone/Vilanterol 200/25 Blst.W.Dev) 1 puff INHALE RDAILY [facility] Last Admin: 06/05/24 07:26 Dose: 1 puff Documented By: VICKIE Guaifenesin/Codeine Phosphate (Guaifen/Codeine Sf 200/20/10ml 10 Ml Liquid) 10 ml PO Q4H PRN PRN Reason: Cough Last Admin: 06/06/24 08:29 Dose: 10 ml Documented By: MENA Azithromycin 500 mg/ Sodium (Chloride) 250 mls @ 125 mls/hr IV Q24H [facility] Last Infusion: 06/06/24 00:16 Dose: Infused Documented By: VAN Losartan Potassium (Losartan Potassium 50 Mg Tablet) 100 mg PO DAILY [facility]; Protocol Last Admin: 06/06/24 08:32 Dose: 100 mg Documented By: MENA Magnesium Hydroxide (Milk Of Magnesia 30 Ml Oral.Susp) 30 ml PO DAILY PRN PRN Reason: Constipation Last Admin: 06/05/24 15:09 Dose: 30 ml Documented By: LUIS Melatonin (Melatonin 3 Mg Tablet) 6 mg PO BEDTIME PRN PRN Reason: Insomnia Methylprednisolone Sodium Succinate (Methylprednisolone Sod Succ 125 Mg/2 Ml Vial) 60 mg IVPUSH Q12H [facility] Last Admin: 06/06/24 08:34 Dose: 60 mg Documented By: MENA Morphine Sulfate (Morphine Sulfate 2 Mg/Ml Cartridge) 2 mg IVPUSH Q4H PRN; Protocol PRN Reason: Pain, Severe (Pain Scale 7-10) Last Admin: 06/06/24 03:53 Dose: 2 mg Documented By: VAN Nifedipine (Nifedipine Er 30 Mg Tab.Er.24) 30 mg PO DAILY [facility]; Protocol Last Admin: 06/06/24 08:33 Dose: 30 mg Documented By: MENA Ondansetron HCl (Ondansetron Hcl 4 Mg/2 Ml Vial) 4 mg IVPUSH Q8H PRN PRN Reason: Nausea and Vomiting Last Admin: 06/02/24 15:21 Dose: 4 mg Documented By: NISHANT Senna/Docusate Sodium (Sennosides/Docusate Sodium Tablet) 1 tab PO BEDTIME PRN PRN Reason: Constipation Last Admin: 06/06/24 08:32 Dose: 1 tab Documented By: MENA Sodium Chloride (0.9 % Sodium Chloride Flush 3 Ml Syringe) 3 ml IVFLUSH QSHIFT [facility] Last Admin: 06/06/24 08:33 Dose: 3 ml Documented By: MENA Trazodone HCl (Trazodone Hcl 100 Mg Tablet) 200 mg PO BEDTIME [facility] Last Admin: 06/05/24 22:53 Dose: 200 mg Documented By: VAN Venlafaxine HCl (Venlafaxine Hcl Er 37.5 Mg Cap.Er.24h) 37.5 mg PO DAILY [facility] Last Admin: 06/06/24 08:33 Dose: 37.5 mg Documented By: MENA Labs 06/03/24 07:03 06/03/24 07:03 Assessment and Plan (1) Morbid obesity due to excess calories: Status: Acute Plan 59F PMH mild intermittent asthma, coronary artery disease status post stent, hypertension, osteoarthritis, GERD, obesity presented with shortness of breath Acute hypoxic respiratory failure secondary to viral sepsis due to non COVID coronavirus complicated by mild intermittent asthma with acute decompensation Now off high-flow weaned down to room air but still with coughing fits and shortness of breath Continue empiric IV ceftriaxone and azithromycin as well as IV steroids, DuoNebs Pulm appreciated Coronary artery disease Continue aspirin and statin Hypertension Continue losartan and nifedipine DVT prophylaxis with Lovenox Full Code reason for continued hospitalization: sob, coughing fits Quality Stroke Does the patient have a stroke diagnosis?: No VTE Prior VTE?: No VTE Risk Level:: Medical - moderate - high VTE Device Contraindication: Treatment Not Indicated VTE Drug Contraindication: N/A - Med Ordered
[2024-06-06] MEDS: Fluticasone/Vilanterol 200/25 BLST.W.DEV 1 PUFF INHALE (09:06)
[2024-06-06] MEDS: Albuterol/Iprat 2.5/0.5MG 3 ML AMPUL.NEB INHALE ×4 (09:06→19:49)
--- NOTE | 2024-06-06 14:27 | MHC.CM.PN ---
EMR reviewed and per MD rounds, pt is not medically cleared for discharge due to management of acute hypoxic respiratory failure.
[2024-06-06] MEDS: Azithromycin 500 MG in 0.9 % Sodium Chloride 250 ML 125 MG IV (14:35)
[2024-06-06] MEDS: cefTRIAXone sodium 1 GM VIAL IVPUSH (14:36)
[2024-06-06] MEDS: Milk of Magnesia 30 ML ORAL.SUSP PO (14:39)
[2024-06-06] MEDS: Melatonin 3 MG TABLET 6 MG PO (20:43)
[2024-06-06] MEDS: Enoxaparin Sodium 40 MG/0.4 ML SYRINGE SUBCUT (20:43)
[2024-06-06] MEDS: traZODone HCL 100 MG TABLET 200 MG PO (20:43)
[2024-06-07] VITALS (14 sets, daily range): BP systolic 124–165; BP diastolic 58–85; PULSE 61–87; RESP 16–22; TEMP 36.2–37.1; O2SAT 88–97
[2024-06-07] MEDS: guaiFEN/Codeine SF 200/20/10ML 10 ML LIQUID PO ×5 (01:57→21:26)
[2024-06-07] MEDS: Morphine Sulfate 2 MG/ML CARTRIDGE IVPUSH ×3 (01:58→10:29)
[2024-06-07] MEDS: 0.9 % Sodium Chloride Flush 3 ML SYRINGE IVFLUSH ×4 (02:05→21:28)
[2024-06-07] MEDS: Famotidine 20 MG TABLET PO (05:35)
[2024-06-07] MEDS: Albuterol/Iprat 2.5/0.5MG 3 ML AMPUL.NEB INHALE ×4 (07:47→18:41)
[2024-06-07] MEDS: Fluticasone/Vilanterol 200/25 BLST.W.DEV 1 PUFF INHALE (07:47)
--- NOTE | 2024-06-07 09:29 | P.PNIM_ITS ---
Subjective Subjective Date of Service: 06/07/24 Interval History: hypoxic overnight Physical Exam 2 Vital Signs: Vital Signs: Last Vital Signs Temp 97.7 F 06/07/24 07:17 Pulse 61 06/07/24 07:49 Resp 16 06/07/24 07:49 BP 142/78 H 06/07/24 07:17 Pulse Ox 96 06/07/24 07:17 O2 Del Method Nasal Cannula 06/07/24 07:17 O2 Flow Rate 3 06/07/24 07:17 FiO2 92 06/07/24 02:00 Oxygen Flow Rate 2 06/01/24 14:08 BMI result Body Mass Index 39.1 General: AO X 3, no acute distress Resp: C crackles and expiratory wheezes bilateral, no accessory muscles used CVS: S1,S2,RRR GI: soft, non tender, non distended Neuro: motor grossly intact, alert Psych: appropriate affect, appropriate insight Objective Data Active Medications Acetaminophen (Acetaminophen 325 Mg Tablet) 650 mg PO Q6H PRN PRN Reason: Pain, Mild 1-3,fever,headache Albuterol/Ipratropium (Albuterol/Iprat 2.5/0.5mg 3 Ml Ampul.Neb) 3 ml INHALE RQ4H WHILE AWAKE [facility] Last Admin: 06/07/24 07:47 Dose: 3 ml Documented By: MAME Aspirin (Aspirin Enteric Coated 81 Mg Tablet.) 81 mg PO DAILY [facility] Last Admin: 06/06/24 08:33 Dose: 81 mg Documented By: MENA Atorvastatin Calcium (Atorvastatin Calcium 80 Mg Tablet) 80 mg PO DAILY [facility] Last Admin: 06/06/24 08:32 Dose: 80 mg Documented By: MENA Calcium Carbonate (Calcium Carbonate 750 Mg Tab.Chew) 750 mg PO Q4H PRN PRN Reason: Heartburn Ceftriaxone Sodium (Ceftriaxone Sodium 1 Gm Vial) 1 gm IVPUSH Q24H [facility] Last Admin: 06/06/24 14:36 Dose: 1 gm Documented By: MENA Enoxaparin Sodium (Enoxaparin Sodium 40 Mg/0.4 Ml Syringe) 40 mg SUBCUT Q24H [facility] Last Admin: 06/06/24 20:43 Dose: 40 mg Documented By: MEGHAN Famotidine (Famotidine 20 Mg Tablet) 20 mg PO DAILY@0630 [facility] Last Admin: 06/07/24 05:35 Dose: 20 mg Documented By: KENNY Fluticasone/Vilanterol (Fluticasone/Vilanterol 200/25 Blst.W.Dev) 1 puff INHALE RDAILY [facility] Last Admin: 06/07/24 07:47 Dose: 1 puff Documented By: MAME Guaifenesin/Codeine Phosphate (Guaifen/Codeine Sf 200/20/10ml 10 Ml Liquid) 10 ml PO Q4H PRN PRN Reason: Cough Last Admin: 06/07/24 06:23 Dose: 10 ml Documented By: KAVON Azithromycin 500 mg/ Sodium (Chloride) 250 mls @ 125 mls/hr IV Q24H [facility] Last Infusion: 06/06/24 17:12 Dose: Infused Documented By: MENA Losartan Potassium (Losartan Potassium 50 Mg Tablet) 100 mg PO DAILY [facility]; Protocol Last Admin: 06/06/24 08:32 Dose: 100 mg Documented By: MENA Magnesium Hydroxide (Milk Of Magnesia 30 Ml Oral.Susp) 30 ml PO DAILY PRN PRN Reason: Constipation Last Admin: 06/06/24 14:39 Dose: 30 ml Documented By: MENA Melatonin (Melatonin 3 Mg Tablet) 6 mg PO BEDTIME PRN PRN Reason: Insomnia Last Admin: 06/06/24 20:43 Dose: 6 mg Documented By: MEGHAN Methylprednisolone Sodium Succinate (Methylprednisolone Sod Succ 125 Mg/2 Ml Vial) 60 mg IVPUSH Q12H [facility] Last Admin: 06/06/24 20:45 Dose: 60 mg Documented By: MEGHAN Morphine Sulfate (Morphine Sulfate 2 Mg/Ml Cartridge) 2 mg IVPUSH Q4H PRN; Protocol PRN Reason: Pain, Severe (Pain Scale 7-10) Last Admin: 06/07/24 06:23 Dose: 2 mg Documented By: KAVON Nifedipine (Nifedipine Er 30 Mg Tab.Er.24) 30 mg PO DAILY [facility]; Protocol Last Admin: 06/06/24 08:33 Dose: 30 mg Documented By: MENA Ondansetron HCl (Ondansetron Hcl 4 Mg/2 Ml Vial) 4 mg IVPUSH Q8H PRN PRN Reason: Nausea and Vomiting Last Admin: 06/02/24 15:21 Dose: 4 mg Documented By: NISHANT Senna/Docusate Sodium (Sennosides/Docusate Sodium Tablet) 1 tab PO BEDTIME PRN PRN Reason: Constipation Last Admin: 06/06/24 08:32 Dose: 1 tab Documented By: MENA Sodium Chloride (0.9 % Sodium Chloride Flush 3 Ml Syringe) 3 ml IVFLUSH QSHIFT [facility] Last Admin: 06/07/24 02:05 Dose: 3 ml Documented By: KENNY Trazodone HCl (Trazodone Hcl 100 Mg Tablet) 200 mg PO BEDTIME [facility] Last Admin: 06/06/24 20:43 Dose: 200 mg Documented By: MEGHAN Venlafaxine HCl (Venlafaxine Hcl Er 37.5 Mg Cap.Er.24h) 37.5 mg PO DAILY [facility] Last Admin: 06/06/24 08:33 Dose: 37.5 mg Documented By: MENA Labs 06/03/24 07:03 06/03/24 07:03 Microbiology Microbiology Results: Microbiology 06/01/24 16:07 Blood Culture - Final Blood - Venous No growth after 5 days. 06/01/24 15:49 Blood Culture - Final Blood - Venous No growth after 5 days. Assessment and Plan (1) Morbid obesity due to excess calories: Status: Acute Plan 59F PMH mild intermittent asthma, coronary artery disease status post stent, hypertension, osteoarthritis, GERD, obesity presented with shortness of breath Acute hypoxic respiratory failure secondary to viral sepsis due to non COVID coronavirus complicated by mild intermittent asthma with acute decompensation Now off high-flow, was on room air, but required 3L overnight (had negative sleep study 2 months ago) Continue empiric IV ceftriaxone and azithromycin as well as IV steroids, DuoNebs Pulm appreciated Coronary artery disease Continue aspirin and statin Hypertension Continue losartan and nifedipine DVT prophylaxis with Lovenox Full Code reason for continued hospitalization: sob, coughing fits, weaning o2 Quality Stroke Does the patient have a stroke diagnosis?: No VTE Prior VTE?: No VTE Risk Level:: Medical - moderate - high VTE Device Contraindication: Treatment Not Indicated VTE Drug Contraindication: N/A - Med Ordered
[2024-06-07] MEDS: NIFEdipine ER 30 MG TAB.ER.24 PO (09:45)
[2024-06-07] MEDS: Aspirin Enteric Coated 81 MG TABLET.DR PO (09:46)
[2024-06-07] MEDS: Losartan Potassium 50 MG TABLET 100 MG PO (09:46)
[2024-06-07] MEDS: Atorvastatin Calcium 80 MG TABLET PO (09:46)
[2024-06-07] MEDS: Venlafaxine HCl ER 37.5 MG CAP.ER.24H PO (09:46)
[2024-06-07] MEDS: methylPREDNISolone Sod Succ 125 MG/2 ML VIAL 60 MG IVPUSH ×2 (09:46→21:26)
[2024-06-07] MEDS: Milk of Magnesia 30 ML ORAL.SUSP PO (10:29)
[2024-06-07] MEDS: Azithromycin 500 MG in 0.9 % Sodium Chloride 250 ML 125 MG IV (15:12)
[2024-06-07] MEDS: cefTRIAXone sodium 1 GM VIAL IVPUSH (15:12)
[2024-06-07] MEDS: Acetaminophen 325 MG TABLET 650 MG PO (15:16)
[2024-06-07] MEDS: Enoxaparin Sodium 40 MG/0.4 ML SYRINGE SUBCUT (21:26)
[2024-06-07] MEDS: traZODone HCL 100 MG TABLET 200 MG PO (21:27)
[2024-06-07] MEDS: oxyCODONE HCl Immed Release 5 MG TABLET PO (21:52)
[2024-06-08 02:58] VITALS: BP 142/80; PULSE 71; RESP 20; TEMP 36.3; O2SAT 92
[2024-06-08] MEDS: guaiFEN/Codeine SF 200/20/10ML 10 ML LIQUID PO ×2 (03:25→08:57)
[2024-06-08] MEDS: Acetaminophen 325 MG TABLET 650 MG PO (03:26)
[2024-06-08] MEDS: Famotidine 20 MG TABLET PO (06:21)
[2024-06-08 08:00] VITALS: BP 148/64; PULSE 74; RESP 64; O2SAT 94
[2024-06-08 08:04] LABS: Hematocrit 46.1 % (37.0-47.0); Hemoglobin 14.7 g/dl (12.0-16.0); Mean Corpuscular HGB Conc 31.9 g/dl (31.0-35.0); Mean Corpuscular Hemoglobin 29.2 pg (27.0-33.0); Mean Corpuscular Volume 91.5 fL (80.0-98.0); Platelet Count 297 X10*3/uL (160-400); Red Blood Count 5.04 X10*6/uL (4.20-5.50); Red Cell Distribution Width 14.9 % (11.0-16.0); White Blood Count 14.5 X10*3/uL (4.8-10.8)
[2024-06-08 08:17] LABS: Anion Gap 14 (12-20); Blood Urea Nitrogen 21 mg/dL (9-16); Calcium 8.5 mg/dL (8.4-10.2); Carbon Dioxide 26 mmol/L (22-29); Chloride 105 mmol/L (96-108); Creatinine Clr Calc Pharmacy 91.6; Estimated Glomerular Filt Rate > 60; Glucose Random 108 mg/dL (60-115); Sodium 140 mmol/L (135-145)
[2024-06-08] MEDS: Albuterol/Iprat 2.5/0.5MG 3 ML AMPUL.NEB INHALE ×2 (08:26→11:53)
[2024-06-08] MEDS: Fluticasone/Vilanterol 200/25 BLST.W.DEV 1 PUFF INHALE (08:27)
[2024-06-08 08:30] VITALS: PULSE 79; RESP 18; O2SAT 94
[2024-06-08] MEDS: Venlafaxine HCl ER 37.5 MG CAP.ER.24H PO (08:54)
[2024-06-08] MEDS: NIFEdipine ER 30 MG TAB.ER.24 PO (08:54)
[2024-06-08] MEDS: Atorvastatin Calcium 80 MG TABLET PO (08:54)
[2024-06-08] MEDS: Aspirin Enteric Coated 81 MG TABLET.DR PO (08:55)
[2024-06-08] MEDS: methylPREDNISolone Sod Succ 125 MG/2 ML VIAL 60 MG IVPUSH (08:55)
[2024-06-08] MEDS: Losartan Potassium 50 MG TABLET 100 MG PO (08:55)
[2024-06-08] MEDS: 0.9 % Sodium Chloride Flush 3 ML SYRINGE IVFLUSH (08:56)
--- NOTE | 2024-06-08 09:46 | P.PNIM_ITS ---
Subjective Subjective Date of Service: 06/08/24 Interval History: Still with cough and some shortness breath, but overall improved. Requiring O2 Physical Exam 2 Vital Signs: Vital Signs: Last Vital Signs Temp 97.4 F 06/08/24 02:58 Pulse 79 06/08/24 08:30 Resp 18 06/08/24 08:30 BP 148/64 H 06/08/24 08:00 Pulse Ox 94 06/08/24 08:00 O2 Del Method Nasal Cannula 06/08/24 08:00 O2 Flow Rate 2 06/08/24 02:58 FiO2 92 06/07/24 02:00 Oxygen Flow Rate 2 06/01/24 14:08 BMI result Body Mass Index 39.1 General: AO X 3, no acute distress Resp: C crackles and expiratory wheezes bilateral, no accessory muscles used CVS: S1,S2,RRR GI: soft, non tender, non distended Neuro: motor grossly intact, alert Psych: appropriate affect, appropriate insight Objective Data Active Medications Acetaminophen (Acetaminophen 325 Mg Tablet) 650 mg PO Q6H PRN PRN Reason: Pain, Mild 1-3,fever,headache Last Admin: 06/08/24 03:26 Dose: 650 mg Documented By: MARIN Albuterol/Ipratropium (Albuterol/Iprat 2.5/0.5mg 3 Ml Ampul.Neb) 3 ml INHALE RQ4H WHILE AWAKE [facility] Last Admin: 06/08/24 08:26 Dose: 3 ml Documented By: BOWEN Aspirin (Aspirin Enteric Coated 81 Mg Tablet.) 81 mg PO DAILY [facility] Last Admin: 06/08/24 08:55 Dose: 81 mg Documented By: NELLY Atorvastatin Calcium (Atorvastatin Calcium 80 Mg Tablet) 80 mg PO DAILY [facility] Last Admin: 06/08/24 08:54 Dose: 80 mg Documented By: NELLY Calcium Carbonate (Calcium Carbonate 750 Mg Tab.Chew) 750 mg PO Q4H PRN PRN Reason: Heartburn Ceftriaxone Sodium (Ceftriaxone Sodium 1 Gm Vial) 1 gm IVPUSH Q24H [facility] Last Admin: 06/07/24 15:12 Dose: 1 gm Documented By: LUIS Enoxaparin Sodium (Enoxaparin Sodium 40 Mg/0.4 Ml Syringe) 40 mg SUBCUT Q24H [facility] Last Admin: 06/07/24 21:26 Dose: 40 mg Documented By: MAIRN Famotidine (Famotidine 20 Mg Tablet) 20 mg PO DAILY@0630 [facility] Last Admin: 06/08/24 06:21 Dose: 20 mg Documented By: KAVON Fluticasone/Vilanterol (Fluticasone/Vilanterol 200/25 Blst.W.Dev) 1 puff INHALE RDAILY [facility] Last Admin: 06/08/24 08:27 Dose: 1 puff Documented By: BOWEN Guaifenesin/Codeine Phosphate (Guaifen/Codeine Sf 200/20/10ml 10 Ml Liquid) 10 ml PO Q4H PRN PRN Reason: Cough Last Admin: 06/08/24 08:57 Dose: 10 ml Documented By: NELLY Azithromycin 500 mg/ Sodium (Chloride) 250 mls @ 125 mls/hr IV Q24H [facility] Last Infusion: 06/07/24 17:12 Dose: Infused Documented By: LUIS Losartan Potassium (Losartan Potassium 50 Mg Tablet) 100 mg PO DAILY [facility]; Protocol Last Admin: 06/08/24 08:55 Dose: 100 mg Documented By: NELLY Magnesium Hydroxide (Milk Of Magnesia 30 Ml Oral.Susp) 30 ml PO DAILY PRN PRN Reason: Constipation Last Admin: 06/07/24 10:29 Dose: 30 ml Documented By: LUIS Melatonin (Melatonin 3 Mg Tablet) 6 mg PO BEDTIME PRN PRN Reason: Insomnia Last Admin: 06/06/24 20:43 Dose: 6 mg Documented By: MEGHAN Methylprednisolone Sodium Succinate (Methylprednisolone Sod Succ 125 Mg/2 Ml Vial) 60 mg IVPUSH Q12H [facility] Last Admin: 06/08/24 08:55 Dose: 60 mg Documented By: NELLY Nifedipine (Nifedipine Er 30 Mg Tab.Er.24) 30 mg PO DAILY [facility]; Protocol Last Admin: 06/08/24 08:54 Dose: 30 mg Documented By: NELLY Ondansetron HCl (Ondansetron Hcl 4 Mg/2 Ml Vial) 4 mg IVPUSH Q8H PRN PRN Reason: Nausea and Vomiting Last Admin: 06/02/24 15:21 Dose: 4 mg Documented By: NISHANT Senna/Docusate Sodium (Sennosides/Docusate Sodium Tablet) 1 tab PO BEDTIME PRN PRN Reason: Constipation Last Admin: 06/06/24 08:32 Dose: 1 tab Documented By: MENA Sodium Chloride (0.9 % Sodium Chloride Flush 3 Ml Syringe) 3 ml IVFLUSH QSHIFT [facility] Last Admin: 06/08/24 08:56 Dose: 3 ml Documented By: NELLY Trazodone HCl (Trazodone Hcl 100 Mg Tablet) 200 mg PO BEDTIME [facility] Last Admin: 06/07/24 21:27 Dose: 200 mg Documented By: MARIN Venlafaxine HCl (Venlafaxine Hcl Er 37.5 Mg Cap.Er.24h) 37.5 mg PO DAILY [facility] Last Admin: 06/08/24 08:54 Dose: 37.5 mg Documented By: NELLY Labs 06/08/24 06:53 06/08/24 06:53 Labs: Laboratory Results - last 24 hr 06/08/24 06:53 MCV 91.5 MCH 29.2 MCHC 31.9 RDW 14.9 Plt Count 297 D MPV 10.0 Absolute Nucleated RBC 0.000 Nucleated RBC % (auto) 0.0 Anion Gap 14 Estim Creat Clear Calc 91.6 Estimated GFR > 60 Random Glucose 108 Calcium 8.5 Assessment and Plan (1) Morbid obesity due to excess calories: Status: Acute Plan 59F PMH mild intermittent asthma, coronary artery disease status post stent, hypertension, osteoarthritis, GERD, obesity presented with shortness of breath Acute hypoxic respiratory failure secondary to viral sepsis due to non COVID coronavirus complicated by mild intermittent asthma with acute decompensation Now off high-flow, was briefly on room air, but now required 2L (had negative sleep study 2 months ago) Continue empiric IV ceftriaxone and azithromycin as well as IV steroids, DuoNebs Pulm appreciated Coronary artery disease Continue aspirin and statin Hypertension Continue losartan and nifedipine DVT prophylaxis with Lovenox Full Code reason for continued hospitalization: sob, coughing fits, weaning o2 Quality Stroke Does the patient have a stroke diagnosis?: No VTE Prior VTE?: No VTE Risk Level:: Medical - moderate - high VTE Device Contraindication: Treatment Not Indicated VTE Drug Contraindication: N/A - Med Ordered
[2024-06-08] MEDS: oxyCODONE HCl Immed Release 5 MG TABLET PO (10:51)
[2024-06-08 11:56] VITALS: PULSE 77; RESP 18; O2SAT 95
[2024-06-08 12:00] VITALS: BP 137/71; PULSE 99; RESP 19; TEMP 36.4; O2SAT 93
--- NOTE | 2024-06-08 14:36 | PM.DS ---
DS: Providers Provider Date of Service: 06/08/24 Date of admission: 06/01/24 20:51 Date of discharge: 06/08/24 Primary care physician: Dee Joseph MD Consults: 06/01/24 21:41 Consult to Pulmonology Routine Consulting Provider: [facility] [place] Pulmonology Services Reason for consultation: Interstitial pneumonia DS: Diagnosis Discharge Diagnosis (1) Morbid obesity due to excess calories: Status: Acute DS: Summary Hospital Course Hospital Course: From initial hpi: 59-year-old female with a PMH significant for asthma, CAD s/p stenting of RCA in 2017, HTN, osteoarthritis, and GERD who presents to the ED with SOB, cough, and chest pain that worsening this afternoon. Pt reports she came down with a cold last month which seemed to have resolved on its own. However she developed a dry cough and SOB a couple of weeks ago that have since progressively worsened. Has also experienced subjective fever and chills, increased fatigue, and difficulty sleeping. Today at work pt was in the break room when she had an unrelenting coughing fit that would not stop. Pt became short of breath, had difficulty breathing, and had central, substernal, and nonradiating chest pain that was sharp and stabbing in nature. Pt became diaphoretic and given her hx of CAD and previous PR called EMS who arrived and found pt hypoxic. EMS place pt on supplemental O2 and gave Solu-Medrol, Mag, DuoNebs, and nitroglycerin x2 with some symptom relief. In the ED pt was tachycardic up to 118, tachypneic up to 34, and initially hypertensive at 172/76. Hypoxia noted by EMS and arrived on OxyMask which has now been transitioned to high-flow. Labs were significant for leukocytosis of 13.6, otherwise grossly unremarkable and around baseline for pt. Stable H&H. No significant electrolyte abnormalities. Renal and hepatic function baseline. Serial troponins negative. BNP WNL. D-dimer negative. Respiratory panel pending. CXR showed chronic interstitial lung disease. CT of chest found bilateral upper lobe ground-glass opacities left greater than right concerning for atypical infection vs hypersensitivity pneumonitis. EKG demonstrated sinus tachycardia of 104 without evidence of significant ST elevations or depressions. Pt was treated with DuoNebs, IVF, morphine, guaifenesin, ceftriaxone, and azithromycin. Pt will be admitted to the hospital for treatment and further evaluation of acute hypoxic respiratory failure in the setting of interstitial pneumonia with sepsis. Hospital course: Patient was admitted for acute hypoxic respiratory failure secondary to viral sepsis due to non COVID coronavirus complicated by mild intermittent asthma with acute decompensation. Patient was initially in severe respiratory distress requiring high-flow. She was treated with IV steroids, DuoNebs, empiric IV ceftriaxone azithromycin for possible superimposed bacterial pneumonia. Was eventually weaned down to room air. On discharge we will continue 5 more days of prednisone. Completed antibiotic course. For coronary artery disease was continued on aspirin and statin. For hypertension was continued on losartan and nifedipine. Patient is feeling better will be discharged home. Time Attestation Discharge Coordination Time (in mins): 37 Quality: Safe Use of Opioids Does Pt have an Active Cancer Diagnosis on the Problem List?: No Quality: Stroke Does the patient have a stroke diagnosis?: No Physical Exam Vital Signs: Vital Signs: Last Vital Signs Temp 97.6 F 06/08/24 12:00 Pulse 99 06/08/24 12:00 Resp 19 06/08/24 12:00 BP 137/71 06/08/24 12:00 Pulse Ox 93 06/08/24 12:00 O2 Del Method Nasal Cannula 06/08/24 08:00 O2 Flow Rate 2 06/08/24 02:58 FiO2 92 06/07/24 02:00 Oxygen Flow Rate 2 06/01/24 14:08 BMI result Body Mass Index 39.1 General: AO X 3, no acute distress Resp: CTA bilateral, no accessory muscles used CVS: S1,S2,RRR GI: soft, non tender, non distended Neuro: motor grossly intact, alert Psych: appropriate affect, appropriate insight DS: Data Data Completed and Pending Labs on day of discharge: Laboratory Results - last 24 hr 06/08/24 06:53 WBC 14.5 H RBC 5.04 Hgb 14.7 Hct 46.1 MCV 91.5 MCH 29.2 MCHC 31.9 RDW 14.9 Plt Count 297 D MPV 10.0 Absolute Nucleated RBC 0.000 Nucleated RBC % (auto) 0.0 Sodium 140 Potassium 5.0 Chloride 105 Carbon Dioxide 26 Anion Gap 14 BUN 21 H Creatinine 0.70 Estim Creat Clear Calc 91.6 Estimated GFR > 60 Random Glucose 108 Calcium 8.5 Discharge Plan Discharge Anticipated Discharge Date/Time: 06/08/24 14:32 Patient Disposition: Home, Self-Care Discharge Diagnosis: asthma, non covid coronovirus Referrals: Dee Joseph MD [Primary Care Provider] - 1 Week Discharge Medications: New codeine-guaifenesin 10-100 mg/5 mL Liquid 10 ml PO Q4H PRN (Reason: Cough) Qty: 118 0RF oxycodone 5 mg Tablet 5 mg PO Q6H PRN (Reason: Pain, Moderate(Pain Scale 4-6)) Qty: 10 0RF Rx Instructions: Partial Fill upon patient request. prednisone 20 mg tablet 40 mg PO DAILY Qty: 10 0RF Continued budesonide-formoterol [Symbicort] 160-4.5 mcg/actuation HFA aerosol inhaler 2 puff inhalation BID 30 Days Qty: 10.2 2RF famotidine 20 mg tablet 20 mg PO DAILY Qty: 90 0RF atorvastatin 80 mg tablet 80 mg PO DAILY 90 Days Qty: 90 0RF nifedipine 30 mg tablet extended release 24hr 30 mg PO DAILY 90 Days Qty: 90 0RF sennosides-docusate sodium 8.6-50 mg tablet 1 tab-cap PO BEDTIME PRN (Reason: Constipation) trazodone 100 mg tablet 200 mg PO BEDTIME venlafaxine 37.5 mg capsule,extended release 24hr 37.5 mg PO DAILY losartan 100 mg tablet 100 mg PO DAILY albuterol sulfate 90 mcg/actuation HFA aerosol inhaler 1 puff inhalation Q6H PRN (Reason: for wheezing) aspirin 81 mg tablet,delayed release (DR/EC) 81 mg PO DAILY 90 Days Qty: 90 3RF celecoxib [Celebrex] 200 mg capsule 200 mg PO DAILY PRN (Reason: pain) 90 Days Qty: 90 3RF Discharge Orders: Discharge Order (Routine); Ordered 06/08/24 Ordered By: Dani Cevallos Diet: Advance to usual diet Activity on Discharge: As tolerated Stand Alone Forms: Patient Portal Discharge page, Work/School Release Print Language: American Care Plan Goals: recovery Health Concerns: asthma Plan of Treatment: 5 more days prednisone Assessment: see above
--- NOTE | 2024-06-08 14:41 | MHC.CM.PN ---
Patient has been medically cleared for dc to home today, self care.
== END 2024-06-08 15:20 | disposition home or self-care (01) | DRG 720 ==
LOC: HO.ED 18:13 → HO.EDOVER 23:28 → HO.IMC 06-02 16:53
PROVIDERS: Family Medicine; Physician Assistant Medical; Admitting Provider Student in an Organized Health Care Education/Training Program; Emergency Provider Emergency Medicine Emergency Medical Services; PCP Internal Medicine; Visit Provider Internal Medicine
DX: A41.89 Other specified sepsis (principal); J15.9 Unspecified bacterial pneumonia; J45.21 Mild intermittent asthma with (acute) exacerbation; I25.10 Atherosclerotic heart disease of native coronary artery without angina pectoris; E66.01 Morbid (severe) obesity due to excess calories; Z68.39 Body mass index [BMI] 39.0-39.9, adult; E78.5 Hyperlipidemia, unspecified; K21.9 Gastro-esophageal reflux disease without esophagitis; I10 Essential (primary) hypertension; B97.29 Other coronavirus as the cause of diseases classified elsewhere; Z71.3 Dietary counseling and surveillance; Z95.5 Presence of coronary angioplasty implant and graft; Z79.82 Long term (current) use of aspirin; Z79.899 Other long term (current) drug therapy
CPT/HCPCS: 0241U; 36415; 71046; 71250; 80048; 80053; 82803; 83605; 83880; 84484; 85025; 85027; 85379; 85610; 87040; 87633; 93005; 94640; 99285; J0456; J0696; J1650; J2270; J2405; J2919

== ENCOUNTER → 2024-06-01 13:57 | Outpatient (BNV) | payer OTHER, SELFPAY | PROVIDERS: Emergency Provider Emergency Medicine Emergency Medical Services; PCP Internal Medicine; Visit Provider Internal Medicine Cardiovascular Disease | DX: R07.9 Chest pain, unspecified (principal); R00.0 Tachycardia, unspecified; R94.31 Abnormal electrocardiogram [ECG] [EKG] | CPT/HCPCS: 93010 ==

== ENCOUNTER → 2024-06-01 14:00 | Outpatient (BNV) | payer OTHER, SELFPAY | PROVIDERS: Emergency Provider Emergency Medicine Emergency Medical Services; PCP Internal Medicine; Visit Provider Radiology Diagnostic Radiology | DX: R05.9 Cough, unspecified (principal); R07.9 Chest pain, unspecified | CPT/HCPCS: 71046; 71250 ==

== ENCOUNTER → 2024-06-01 20:51 | Outpatient (BNV) | payer OTHER, SELFPAY | PROVIDERS: Admitting Provider Student in an Organized Health Care Education/Training Program; Emergency Provider Emergency Medicine Emergency Medical Services; PCP Internal Medicine; Visit Provider Student in an Organized Health Care Education/Training Program | DX: J96.01 Acute respiratory failure with hypoxia (principal); J84.9 Interstitial pulmonary disease, unspecified; A41.9 Sepsis, unspecified organism | CPT/HCPCS: 99223 ==

== ENCOUNTER → 2024-06-01 20:51 | Outpatient (BNV) | payer OTHER, SELFPAY | PROVIDERS: Admitting Provider Student in an Organized Health Care Education/Training Program; Emergency Provider Emergency Medicine Emergency Medical Services; PCP Internal Medicine; Visit Provider Hospitalist | DX: J84.9 Interstitial pulmonary disease, unspecified (principal); R09.02 Hypoxemia; B34.2 Coronavirus infection, unspecified | CPT/HCPCS: 99223 ==

== ENCOUNTER 2024-06-16 11:46 | Outpatient (AMB) | payer OTHER, SELFPAY ==
--- NOTE | 2024-06-16 11:47 | A.OFFPC_ITS ---
Vital Signs 06/16/24 11:57 Height 5 ft 2 in Weight 215 lb 6 oz BMI 39.4 BP 134/70 Blood Pressure Location Rt brachial Position Sitting Pulse 84 Pulse Source Pulse Oximeter Pulse Oximetry (%) 98 Oxygen Delivery Method Room Air Intake Visit Reasons: TCM Allergies bee pollen [BEE STINGS] Allergy (Severe, Verified 06/01/24 14:12) ANAPHYLAXIS spider venom [SPIDER BITES] Allergy (Mild, Verified 06/01/24 14:12) SWELLING acetaminophen [Vicodin] Allergy (Unknown, Verified 06/01/24 14:12) nausea and vomiting hydrocodone [Vicodin] Allergy (Unknown, Verified 06/01/24 14:12) nausea and vomiting Medication List - Last Reconciled 06/16/24 by Dee Joseph MD albuterol sulfate 90 mcg/actuation 1 puff inhalation Q6H PRN aspirin 81 mg PO DAILY 90 days atorvastatin 80 mg PO DAILY 90 days budesonide-formoterol 160-4.5 mcg/actuation (Symbicort) 2 puffs inhalation BID 30 days celecoxib (Celebrex) 200 mg PO DAILY PRN 3 months codeine-guaifenesin 10-100 mg/5 mL 10 mL PO Q4H PRN famotidine 20 mg PO DAILY losartan 100 mg PO DAILY nifedipine ER 30 mg PO DAILY 90 days oxycodone 5 mg PO Q6H PRN sennosides-docusate sodium 8.6-50 mg 1 tab-cap PO BEDTIME PRN trazodone 200 mg PO BEDTIME venlafaxine ER 37.5 mg PO DAILY Tobacco use date assessed: 04/04/24 Dental Screening Dental Screen Date: 04/04/24 HPI TCM HPI Details Patient is 59-year-old female came in today for hospital discharge follow-up [facility] Date of admission 06/01/2024 date of discharge 06/08/2024 Patient have a past medical history significant for asthma, coronary artery disease status post stenting of RCA in 2017, hypertension, osteoarthritis, GERD. Presented to emergency room with a chief complaint of shortness a breath cough and chest pain which was getting worse over past few days. She felt short of breath so came in to the hospital through EMS, during the transport patient was given supplemental oxygen, Solu-Medrol, DuoNeb treatment and nitroglycerin x2 In emergency room patient was tachypneic up to 34 and tachycardic up to 118 her blood pressure was 172/76 Labs revealed leukocytosis of 13.6 stable H&H electrolytes were stable renal and hepatic function stable Tropes were negative BNP within normal limit D-dimer negative Chest x-ray showed chronic interstitial lung disease CT of chest found bilateral upper lobe ground-glass opacities left greater than right concerning for atypical infection versus hypersensitivity pneumonitis. EKG showed sinus tachycardia of 104 beats per minute without any evidence of significant ST findings. In-hospital patient was treated with DuoNebs and IV fluids She was given ceftriaxone and azithromycin COVID test negative Patient is stabilized in hospital and was discharged with 5 more days of prednisone Codeine cough syrup Her other medications are Symbicort Famotidine Atorvastatin Nifedipine Trazodone Venlafaxine Losartan Celebrex And aspirin She came in today for a follow-up appointment - Reports persistent nocturnal cough dis rupting sleep and associated with sputum production. - Completed an eight-day antibiotic kayla men post-hospitalization for a respiratory infection. - History of oxygen desaturation during sleep; previously assessed in a sleep st udy with no findings of apnea. - Diagnosed with chronic interstitial darnell ng disease, requiring follow-up lung imaging for current assessment. Patient Instructions - Take prescribed codeine cough medicine , preferably at night to manage cough. Refills sent - Monitor symptoms and notify of any wor sening respiratory distress. - Follow up on the scheduled appointment on July 04 for repeat lung imaging. Review of Systems. - General: No fever no chills - Neurological: No headaches no dizziness - Ear nose throat: No sore throat no hearing difficulty no ear pain - Cardiovascular: No syncope, no chest pain, no palpitations - Gastrointestinal: No nausea vomiting or diarrhea - Endocrine: No polyuria polydipsia no heat intolerance - Genitourinary: No dysuria , no blood in urine Physical Exam General: No acute distress HEENT: No acute findings Neck: Supple Respiratory system: Chest is clear, able to talk in full sentences, no audible wheeze cardiovascular: S1-S2 regular in rate and rhythm Gastrointestinal: No pain Extremities: No new findings NIGHT BAKER: Alert awake oriented x3 motor sensory intact Skin: Normal turgor [facility] Medical History CAD (coronary artery disease) Environmental allergies Anxiety, generalized Chronic GERD Asthma, moderate Constipation by delayed colonic transit Lipid disorder Chronic vertigo Hypertension, essential Difficulty sleeping Surgical History Stented coronary artery History of shoulder surgery History of tooth extraction History of left oophorectomy Family History Father Myocardial infarction Mother CHF (congestive heart failure) History of back surgery Brother Acute myocardial infarction Sister Acute myocardial infarction Maternal Grandfather Colon cancer Maternal Grandmother Cancer Paternal Grandmother History of heart attack Cervical cancer Paternal Grandfather No problems noted. Maternal Uncle History of heart attack Sister No problems noted. Brother No problems noted. Brother No problems noted. Brother No problems noted. Social History Household Members: Spouse Housing: Apartment Do you presently have visiting nurse or other home services: No Alcohol intake: current Alcohol intake frequency: a few times a week Patient Tobacco Use Status: Former Tobacco user e-Cigarette/Vaping Use: Never Used service: No Current occupational status: employed Current occupation: left handed Gender identity: Female Cognitive needs: No Hearing needs: No Vision needs: No Questionnaire Thrive Questionnaire Date Thrive assessed: 06/02/24 DENA-7 AMB Questionnaire DENA-7 Date DENA - 7 assessed: 12/03/23 Source: Developed by Drs. Rylan Carroll, Amada Callejas, Get Johnston and colleagues, with an educational javier from [employer]. Physical exam (Primary Care) Vital Signs: Last Vital Signs Pulse 84 06/16/24 11:57 BP 134/70 06/16/24 11:57 Pulse Ox 98 06/16/24 11:57 Oxygen Delivery Method Room Air 06/16/24 11:57 BMI result Body Mass Index 39.4 Tobacco/Smoking Status: Tobacco use Status Tobacco use date assessed 04/04/24 06/16/24 11:47 Patient Tobacco Use Status Former Tobacco user 06/16/24 11:47 e-Cigarette/Vaping Use Never Used 06/16/24 11:47 Thrive Assessment: Date of Thrive Assessment Date Thrive assessed 06/02/24 06/16/24 11:47 Coding Level of Care Code Est Pt Level 5 (96209) Diagnoses Hospital discharge follow-up Z09 Acute interstitial pneumonia J84.9 Chest congestion R09.89 Nocturnal cough R05.8 Malaise R53.81 Nocturnal hypoxia G47.34 Coronary artery disease involving [place]' coronary artery of [place] heart without angina pectoris I25.10 Associated angina: without angina Coronary Disease-Associated Artery/Lesion type: [place]' artery [place] vs. transplanted heart: [place]' heart Hypertension, essential I10 Moderate persistent asthma without complication J45.40 Asthma complication type: uncomplicated Asthma persistence: persistent Assessment & Plan Assessment & Plan (1) Hospital discharge follow-up: Code(s): Z09 - Encounter for follow-up examination after completed treatment for conditions other than malignant neoplasm Category: Medical (2) Acute interstitial pneumonia: Code(s): J84.9 - Interstitial pulmonary disease, unspecified Category: Medical (3) Chest congestion: Code(s): R09.89 - Other specified symptoms and signs involving the circulatory and re spiratory systems Category: Medical (4) Nocturnal cough: Code(s): R05.8 - Other specified cough Category: Medical (5) Malaise: Code(s): R53.81 - Other malaise Category: Medical (6) Nocturnal hypoxia: Code(s): G47.34 - Idiopathic sleep related nonobstructive alveolar hypoventilation Category: Medical (7) CAD (coronary artery disease): Comment: s/p stent Code(s): I25.10 - Atherosclerotic heart disease of [place]' coronary artery without angina pectoris Category: Medical Qualifiers: Associated angina: without angina Coronary Disease-Associated Artery/Lesion type: [place]' artery [place] vs. transplanted heart: [place]' heart Qualified Code(s): I25.10 - Atherosclerotic heart disease of [place] de[place]' coronary artery without angina pectoris (8) Hypertension, essential: Code(s): I10 - Essential (primary) hypertension Category: Medical (9) Asthma, moderate: Code(s): J45.909 - Unspecified asthma, uncomplicated Category: Medical Qualifiers: Asthma complication type: uncomplicated Asthma persistence: persistent Qualified Code(s): J45.40 - Moderate persistent asthma, uncomplicated Plan Patient is 59-year-old female came in today for hospital discharge follow-up [facility] Date of admission 06/01/2024 date of discharge 06/08/2024 Patient have a past medical history significant for asthma, coronary artery disease status post stenting of RCA in 2017, hypertension, osteoarthritis, GERD. Presented to emergency room with a chief complaint of shortness a breath cough and chest pain which was getting worse over past few days. She felt short of breath so came in to the hospital through EMS, during the transport patient was given supplemental oxygen, Solu-Medrol, DuoNeb treatment and nitroglycerin x2 In emergency room patient was tachypneic up to 34 and tachycardic up to 118 her blood pressure was 172/76 Labs revealed leukocytosis of 13.6 stable H&H electrolytes were stable renal and hepatic function stable Tropes were negative BNP within normal limit D-dimer negative Chest x-ray showed chronic interstitial lung disease CT of chest found bilateral upper lobe ground-glass opacities left greater than right concerning for atypical infection versus hypersensitivity pneumonitis. EKG showed sinus tachycardia of 104 beats per minute without any evidence of significant ST findings. In-hospital patient was treated with DuoNebs and IV fluids She was given ceftriaxone and azithromycin COVID test negative Patient is stabilized in hospital and was discharged with 5 more days of prednisone Codeine cough syrup Her other medications are Symbicort Famotidine Atorvastatin Nifedipine Trazodone Venlafaxine Losartan Celebrex And aspirin She came in today for a follow-up appointment - Reports persistent nocturnal cough disrupting sleep and associated with sputum production. - Completed an eight-day antibiotic regimen post-hospitalization for a respiratory infection. - History of oxygen desaturation during sleep; previously assessed in a sleep study with no findings of apnea. - Diagnosed with chronic interstitial lung disease, requiring follow-up lung imaging for current assessment. Patient Instructions - Take prescribed codeine cough medicine, preferably at night to manage cough. Refills sent - Monitor symptoms and notify of any worsening respiratory distress. - Follow up on the scheduled appointment on July 04 for repeat lung imaging. 40 minutes spent in care of this patient Medications: Changed From codeine-guaifenesin 10-100 mg/5 mL 10 mL PO Q4H PRN 118 mL 0RF Cough To codeine-guaifenesin 10-100 mg/5 mL 10 mL PO .qhs PRN 200 mL 0RF Cough 20 days
[2024-06-16 11:57] VITALS: BP 134/70; PULSE 84; O2SAT 98; BMI 39.4
== END 2024-06-16 13:34 | disposition home or self-care (01) ==
PROVIDERS: PCP Internal Medicine; Visit Provider Internal Medicine
DX: J84.9 Interstitial pulmonary disease, unspecified (principal); R09.89 Other specified symptoms and signs involving the circulatory and respiratory systems; Z09 Encounter for follow-up examination after completed treatment for conditions other than malignant neoplasm; R05.8 Other specified cough; R53.81 Other malaise; G47.34 Idiopathic sleep related nonobstructive alveolar hypoventilation; I25.10 Atherosclerotic heart disease of native coronary artery without angina pectoris; I10 Essential (primary) hypertension; J45.40 Moderate persistent asthma, uncomplicated

== ENCOUNTER → 2024-06-16 11:46 | Outpatient (BNVA) | payer OTHER, SELFPAY | PROVIDERS: PCP Internal Medicine; Visit Provider Internal Medicine | DX: Z09 Encounter for follow-up examination after completed treatment for conditions other than malignant neoplasm (principal); J84.9 Interstitial pulmonary disease, unspecified; R09.89 Other specified symptoms and signs involving the circulatory and respiratory systems; R05.8 Other specified cough; R53.81 Other malaise; G47.34 Idiopathic sleep related nonobstructive alveolar hypoventilation; I25.10 Atherosclerotic heart disease of native coronary artery without angina pectoris; I10 Essential (primary) hypertension; J45.40 Moderate persistent asthma, uncomplicated | CPT/HCPCS: 99212 ==

== ENCOUNTER 2024-07-04 10:25 | Outpatient (AMB) | payer OTHER, SELFPAY ==
[2024-07-04 10:28] VITALS: BP 128/74; PULSE 73; RESP 18; TEMP 36.6; O2SAT 96; BMI 40.3
--- NOTE | 2024-07-04 10:28 | A.OFFPC_ITS ---
Vital Signs 07/04/24 10:28 Height 5 ft 2 in Weight 220 lb 4 oz BMI 40.3 BP 128/74 Blood Pressure Location Rt brachial Position Sitting Respiration 18 Pulse 73 Pulse Source Pulse Oximeter Temp 98 F Temp Source Oral Pulse Oximetry (%) 96 Oxygen Delivery Method Room Air Intake Visit Reasons: 3 Month f/u Allergies bee pollen [BEE STINGS] Allergy (Severe, Verified 07/04/24 10:28) ANAPHYLAXIS spider venom [SPIDER BITES] Allergy (Mild, Verified 07/04/24 10:28) SWELLING acetaminophen [Vicodin] Allergy (Unknown, Verified 07/04/24 10:28) nausea and vomiting hydrocodone [Vicodin] Allergy (Unknown, Verified 07/04/24 10:28) nausea and vomiting Medication List - Last Reconciled 07/04/24 by Dee Joseph MD albuterol sulfate 90 mcg/actuation 1 puff inhalation Q6H PRN aspirin 81 mg PO DAILY 90 days atorvastatin 80 mg PO DAILY 90 days budesonide-formoterol 160-4.5 mcg/actuation (Symbicort) 2 puffs inhalation BID 30 days celecoxib (Celebrex) 200 mg PO DAILY PRN 3 months famotidine 20 mg PO DAILY losartan 100 mg PO DAILY nifedipine ER 30 mg PO DAILY 90 days sennosides-docusate sodium 8.6-50 mg 1 tab-cap PO BEDTIME PRN trazodone 200 mg PO BEDTIME venlafaxine ER 37.5 mg PO DAILY Tobacco use date assessed: 07/04/24 Dental Screening Dental Screen Date: 07/04/24 Did you have a dental visit in the last 12 months?: No Did you have a dental problem in the last 6 months where you did not have access to dental care?: No Was dental information given to patient?: Patient declined HPI 3 Month f/u HPI Details History - The patient is a 59-year-old female pr esenting with follow-up for interstitial pneumonia associated with ongoing dyspnea and pruritus. - Hospitalized previously with interstit ial pneumonia, resulting in inflammation of alveoli; partial symptomatic improvement since discharge. - Dyspnea persists with exertional activ ities like grocery shopping. - Pruritus observed on bilateral arms, l inked to a probable local irritant exposure, possibly a new body wash product. - Hypertension is managed with losartan and nifedipine; blood pressure well controlled at 128/74 mmHg. - Hyperlipidemia treated with atorvastat in, arthritic pain with Celebrex, anxiety and depression with venlafaxine, GERD with famotidine, and trazodone for sleep disturbances. Problem List - Interstitial Pneumonia - Hypertension - Hyperlipidemia - Arthritic Pain - Anxiety - Depression - Gastroesophageal Reflux Disease - Sleep Disorder - Pruritus Patient Instructions - Continue using the prescribed inhalers and medications. - Start prednisone 5 mg daily for 10 day s, tapering to half a tablet for another 10 days. - Re-evaluate potential irritants causin g arm pruritus, such as new lotions or body washes. - Schedule a follow-up appointment in . - Monitor symptoms and contact the offic e if worsening or new issues arise after completing the prednisone course. Review of Systems - General: No fever no chills - Neurological: No headaches no dizziness - Ear nose throat: No sore throat no hearing difficulty no ear pain - Cardiovascular: No syncope, no chest pain, no palpitations - Gastrointestinal: No nausea vomiting or diarrhea - Endocrine: No polyuria polydipsia no heat intolerance - Genitourinary: No dysuria , no blood in urine Physical Exam General: No acute distress HEENT: No acute findings Neck: Supple Respiratory system: Able to talk in full sentences, no audible wheeze, clear lung sounds cardiovascular: S1-S2 regular in rate and rhythm Gastrointestinal: No pain Extremities: No new findings SURGERY AIDE: Alert awake oriented x3 motor sensory intact Skin: Normal turgor, itching on arms with scratch brar but no rash evident PFSH Medical History CAD (coronary artery disease) Environmental allergies Anxiety, generalized Chronic GERD Asthma, moderate Constipation by delayed colonic transit Lipid disorder Chronic vertigo Hypertension, essential Difficulty sleeping Surgical History Stented coronary artery History of shoulder surgery History of tooth extraction History of left oophorectomy Family History Father Myocardial infarction Mother CHF (congestive heart failure) History of back surgery Brother Acute myocardial infarction Sister Acute myocardial infarction Maternal Grandfather Colon cancer Maternal Grandmother Cancer Paternal Grandmother History of heart attack Cervical cancer Paternal Grandfather No problems noted. Maternal Uncle History of heart attack Sister No problems noted. Brother No problems noted. Brother No problems noted. Brother No problems noted. Social History Household Members: Spouse Housing: Apartment Do you presently have visiting nurse or other home services: No Alcohol intake: current Alcohol intake frequency: a few times a week Patient Tobacco Use Status: Former Tobacco user e-Cigarette/Vaping Use: Never Used service: No Current occupational status: employed Current occupation: left handed Gender identity: Female Cognitive needs: No Hearing needs: No Vision needs: No Questionnaire PHQ-9 Over the last 2 weeks, how often have you been bothered by any of the following problems? 71994 - PHQ-9 Billing: Patient declined-do not bill Source: Developed by Drs. Rylan Carroll, Amada Callejas, Get Johnston and colleagues, with an educational javier from [employer]. Thrive Questionnaire Date Thrive assessed: 07/04/24 I am a: Patient What is your living situation today?: I have a steady place to live Within the past 12 months, did the food you bought not last and you didn't have the money to get more?: Never true Within the past 12 months, did you worry whether your food would run out before you got money to buy more?: Never true Do you have trouble paying for medicines?: No Do you have trouble getting transportation to medical appointments?: No Do you have trouble paying your heating and electricity bill?: No Do you have trouble taking care of your child, family member or friend?: No Do you have trouble with day-to-day activities such as bathing, preparing meals, shopping, managing finances, etc.?: No Are you currently unemployed and looking for a job?: No Are you interested in more education?: No Please select the resources that you would like help with: None Currently or been in a relationship where the following occur: No concerns reported THRIVE Score: 0 AUDIT C Alcohol Use Questionnaire (AUDIT-C) 1. How often do you have a drink containing alcohol?: Monthly or less 2. How many drinks containing alcohol do you have on a typical day when you are drinking?: 1 or 2 3. How often do you have six or more drinks on one occasion?: Never Total Score: 1 Score Reviewed/Action Taken: Yes DENA-7 AMB Questionnaire DENA-7 Date DENA - 7 assessed: 07/04/24 Feeling nervous, anxious, or on edge: 0 = Not at all Not being able to stop or control worryin = Not at all Worrying too much about different things: 0 = Not at all Trouble relaxin = Not at all Being so restless that it is hard to sit still: 0 = Not at all Becoming easily annoyed or irritable: 0 = Not at all Feeling afraid as if something awful might happen: 0 = Not at all Total DENA-7 score (0-4 normal; 5-9 mild; 10-14 moderate; 15-21 severe): 0 Source: Developed by Drs. Rylan Carroll, Amada Callejas, Get Johnston and colleagues, with an educational javier from [employer]. DENA-7 Assessment Billing DENA-7 Assessment Tool: DENA-7 Assessment 25080 Physical exam (Primary Care) Vital Signs: Last Vital Signs Temp 98 F 07/04/24 10:28 Pulse 73 07/04/24 10:28 Resp 18 07/04/24 10:28 BP 128/74 07/04/24 10:28 Pulse Ox 96 07/04/24 10:28 Oxygen Delivery Method Room Air 07/04/24 10:28 BMI result Body Mass Index 40.3 Tobacco/Smoking Status: Tobacco use Status Tobacco use date assessed 07/04/24 07/04/24 10:30 Patient Tobacco Use Status Former Tobacco user 07/04/24 10:30 e-Cigarette/Vaping Use Never Used 07/04/24 10:30 Thrive Assessment: Date of Thrive Assessment Date Thrive assessed 07/04/24 07/04/24 10:38 Currently or been in a relationship where the following occur: No concerns reported Coding Level of Care Code Est Pt Level 4 (82025) Diagnoses Shortness of breath R06.02 Interstitial pneumonia J84.9 Hypertension, essential I10 Pruritic rash L28.2 Moderate persistent asthma without complication J45.40 Asthma persistence: persistent Asthma complication type: uncomplicated Additional Codes DENA-7 Assessment Billing - DENA-7 Assessment Tool: DENA-7 Assessment 74011 ([id number]) Assessment & Plan Assessment & Plan (1) Shortness of breath: Code(s): R06.02 - Shortness of breath Category: Medical (2) Interstitial pneumonia: Code(s): J84.9 - Interstitial pulmonary disease, unspecified Category: Medical (3) Hypertension, essential: Code(s): I10 - Essential (primary) hypertension Category: Medical (4) Pruritic rash: Code(s): L28.2 - Other prurigo Category: Medical (5) Asthma, moderate: Code(s): J45.909 - Unspecified asthma, uncomplicated Category: Medical Qualifiers: Asthma persistence: persistent Asthma complication type: uncomplicated Qualified Code(s): J45.40 - Moderate persistent asthma, uncomplicated Plan History - The patient is a 59-year-old female presenting with follow-up for interstitial pneumonia associated with ongoing dyspnea and pruritus. - Hospitalized previously with interstitial pneumonia, resulting in inflammation of alveoli; partial symptomatic improvement since discharge. - Dyspnea persists with exertional activities like grocery shopping. - Pruritus observed on bilateral arms, linked to a probable local irritant exposure, possibly a new body wash product. - Hypertension is managed with losartan and nifedipine; blood pressure well controlled at 128/74 mmHg. - Hyperlipidemia treated with atorvastatin, arthritic pain with Celebrex, anxiety and depression with venlafaxine, GERD with famotidine, and trazodone for sleep disturbances. Problem List - Interstitial Pneumonia - Hypertension - Hyperlipidemia - Arthritic Pain - Anxiety - Depression - Gastroesophageal Reflux Disease - Sleep Disorder - Pruritus Patient Instructions - Continue using the prescribed inhalers and medications. - Start prednisone 5 mg daily for 10 days, tapering to half a tablet for another 10 days. - Re-evaluate potential irritants causing arm pruritus, such as new lotions or body washes. - Schedule a follow-up appointment in three months. - Monitor symptoms and contact the office if worsening or new issues arise after completing the prednisone course. Medications: New prednisone One tablet daily for 10 days and then half a tablet daily for 10 days 15 tabs 0RF 20 days
== END 2024-07-04 11:03 | disposition home or self-care (01) ==
LOC: HO.HMCC 10:25
PROVIDERS: PCP Internal Medicine; Visit Provider Internal Medicine
DX: R06.02 Shortness of breath (principal); J84.9 Interstitial pulmonary disease, unspecified; I10 Essential (primary) hypertension; L28.2 Other prurigo; J45.40 Moderate persistent asthma, uncomplicated

== ENCOUNTER → 2024-07-04 10:25 | Outpatient (BNVA) | payer OTHER, SELFPAY | PROVIDERS: PCP Internal Medicine; Visit Provider Internal Medicine | DX: G47.34 Idiopathic sleep related nonobstructive alveolar hypoventilation (principal); R06.02 Shortness of breath; J84.9 Interstitial pulmonary disease, unspecified; I10 Essential (primary) hypertension; L28.2 Other prurigo; J45.40 Moderate persistent asthma, uncomplicated | CPT/HCPCS: 96127; 99212 ==

== ENCOUNTER 2024-07-11 14:11 | Outpatient (AMB) | payer OTHER, SELFPAY ==
--- NOTE | 2024-07-11 14:19 | MHC.OFFVIS ---
Vital Signs 07/11/24 14:22 Height 5 ft 2 in Weight 220 lb BMI 40.2 Intake Visit Reasons: Bilateral knee pains Intake Note: Majo is a 59 year old female who presents with complaints of bilateral knee pains. She describes her pains as sharp in nature. She has had cortisone injections in the past which gave her fairly good relief. She wishes to hold off on surgery if at all possible. She has tried physical therapy exercises which aggravated her pain. She has also tried Tylenol and anti-inflammatory medicines which gave her minimal relief. Allergies bee pollen [BEE STINGS] Allergy (Severe, Verified 07/11/24 14:22) ANAPHYLAXIS spider venom [SPIDER BITES] Allergy (Mild, Verified 07/11/24 14:22) SWELLING acetaminophen [Vicodin] Allergy (Unknown, Verified 07/11/24 14:22) nausea and vomiting hydrocodone [Vicodin] Allergy (Unknown, Verified 07/11/24 14:22) nausea and vomiting Medication List - Last Reconciled 07/11/24 by Max Dueñas MD albuterol sulfate 90 mcg/actuation 1 puff inhalation Q6H PRN aspirin 81 mg PO DAILY 90 days atorvastatin 80 mg PO DAILY 90 days budesonide-formoterol 160-4.5 mcg/actuation (Symbicort) 2 puffs inhalation BID 30 days celecoxib (Celebrex) 200 mg PO DAILY PRN 3 months famotidine 20 mg PO DAILY losartan 100 mg PO DAILY nifedipine ER 30 mg PO DAILY 90 days prednisone One tablet daily for 10 days and then half a tablet daily for 10 days 20 days sennosides-docusate sodium 8.6-50 mg 1 tab-cap PO BEDTIME PRN trazodone 200 mg PO BEDTIME venlafaxine ER 37.5 mg PO DAILY PFSH Medical History CAD (coronary artery disease) Environmental allergies Anxiety, generalized Chronic GERD Asthma, moderate Constipation by delayed colonic transit Lipid disorder Chronic vertigo Hypertension, essential Difficulty sleeping Surgical History Stented coronary artery History of shoulder surgery History of tooth extraction History of left oophorectomy Family History Father Myocardial infarction Mother CHF (congestive heart failure) History of back surgery Brother Acute myocardial infarction Sister Acute myocardial infarction Maternal Grandfather Colon cancer Maternal Grandmother Cancer Paternal Grandmother History of heart attack Cervical cancer Paternal Grandfather No problems noted. Maternal Uncle History of heart attack Sister No problems noted. Brother No problems noted. Brother No problems noted. Brother No problems noted. Social History Household Members: Spouse Housing: Apartment Do you presently have visiting nurse or other home services: No Alcohol intake: current Alcohol intake frequency: a few times a week Patient Tobacco Use Status: Former Tobacco user e-Cigarette/Vaping Use: Never Used service: No Current occupational status: employed Current occupation: left handed Gender identity: Female Cognitive needs: No Hearing needs: No Vision needs: No Physical Exam Vital Signs: BMI result Body Mass Index 40.2 Const Other: Well-nourished well-developed very friendly female awake alert and oriented x3 in no acute distress Extrem Other: Bilateral lower extremity examination shows good capillary refill, no skin lesions noted, normal sensation light touch Bilateral knee examination shows minimal effusions, palpable crepitus with range of motion, pain with range of motion, no instability Office Procedures AMB Joint Injection/Aspiration Joint Injection/Aspiration Primary Site: left knee Prep: site was prepped using aseptic technique Injected: 40 mg of, DepoMedrol and 1% plain lidocaine Procedure: The patient tolerated the procedure well Coding 86648 - Large joint Procedure code (CPT) selection complete AMB Joint Injection/Aspiration Joint Injection/Aspiration Primary Site: right knee Prep: site was prepped using aseptic technique Injected: 40 mg of, DepoMedrol and 1% plain lidocaine Procedure: The patient tolerated the procedure well Coding 95893 - Large joint Procedure code (CPT) selection complete Results Reviewed Results Reviewed: X-rays of the patient's bilateral knees taken previously show joint space narrowing, subchondral sclerosis, no acute bony abnormalities Assessment & Plan Assessment & Plan (1) Osteoarthritis of left knee: Code(s): M17.12 - Unilateral primary osteoarthritis, left knee Category: Medical (2) Osteoarthritis of right knee: Code(s): M17.11 - Unilateral primary osteoarthritis, right knee Category: Medical Plan Ms. Cheatham presents with bilateral knee pains due to osteoarthritis. The risks and benefits of bilateral knee cortisone injections were discussed at length with the patient. The patient wished to proceed. She tolerated the injections well. She will continue with her home exercise program. She will contact me prior to her follow-up appointment in 3 months should any questions or concerns arise. I spent 22 minutes in reviewing the patient's records and imaging studies, seeing the patient and documenting in the medical record. Orders: Orders AMB Joint Injection/Aspiration 07/11/24 M17.12 - Unilateral primary osteoarthritis, left knee AMB Joint Injection/Aspiration 07/11/24 M17.11 - Unilateral primary osteoarthritis, right knee Coding Level of Care Code Est Pt Level 3 (77602) Complex EM visit Add On G2211 Diagnoses Osteoarthritis of left knee M17.12 Osteoarthritis of right knee M17.11 CPT Codes Coding - 31598 Large joint: 82471 - Large joint ([id number]) Coding - 31169 Large joint: 86591 - Large joint ([id number])
[2024-07-11 14:22] VITALS: BMI 40.2
== END 2024-07-11 14:51 | disposition home or self-care (01) ==
LOC: HO.HOS 14:11
PROVIDERS: PCP Internal Medicine; Visit Provider Orthopaedic Surgery
DX: M17.0 Bilateral primary osteoarthritis of knee (principal)
CPT/HCPCS: 20610; 99213

== ENCOUNTER → 2024-07-11 14:11 | Outpatient (BNVA) | payer OTHER, SELFPAY | PROVIDERS: PCP Internal Medicine; Visit Provider Orthopaedic Surgery | DX: M17.0 Bilateral primary osteoarthritis of knee (principal) | CPT/HCPCS: 20610; 99212; J1010; J2003 ==

== ENCOUNTER 2024-10-03 11:06 | Outpatient (AMB) | payer OTHER, SELFPAY ==
--- NOTE | 2024-10-03 11:13 | A.OFFPC_ITS ---
Vital Signs 10/03/24 11:16 Height 5 ft 2 in Weight 219 lb 8 oz BMI 40.1 BP 134/74 Blood Pressure Location Rt brachial Position Sitting Pulse 74 Pulse Source Pulse Oximeter Temp 97.9 F Temp Source Oral Pulse Oximetry (%) 94 Oxygen Delivery Method Room Air Intake Visit Reasons: 3m follow up Allergies bee pollen [BEE STINGS] Allergy (Severe, Verified 10/03/24 11:15) ANAPHYLAXIS spider venom [SPIDER BITES] Allergy (Mild, Verified 10/03/24 11:15) SWELLING acetaminophen [Vicodin] Allergy (Unknown, Verified 10/03/24 11:15) nausea and vomiting hydrocodone [Vicodin] Allergy (Unknown, Verified 10/03/24 11:15) nausea and vomiting Medication List - Last Reconciled 10/03/24 by Dee Joseph MD albuterol sulfate 90 mcg/actuation 1 puff inhalation Q6H PRN aspirin 81 mg PO DAILY 90 days atorvastatin 80 mg PO DAILY 90 days budesonide-formoterol 160-4.5 mcg/actuation (Symbicort) 2 puffs inhalation BID 30 days celecoxib (Celebrex) 200 mg PO DAILY PRN 3 months famotidine 20 mg PO DAILY losartan 100 mg PO DAILY nifedipine ER 30 mg PO DAILY 90 days pantoprazole 20 mg PO DAILY sennosides-docusate sodium 8.6-50 mg 1 tab-cap PO BEDTIME PRN trazodone 200 mg (2 x 100 mg) PO BEDTIME venlafaxine ER 37.5 mg PO DAILY Tobacco use date assessed: 10/03/24 Dental Screening Dental Screen Date: 10/03/24 Did you have a dental visit in the last 12 months?: No Did you have a dental problem in the last 6 months where you did not have access to dental care?: No Was dental information given to patient?: No HPI 3m follow up HPI Details History - The patient is a 59-year-old female pr esenting with hypertension and respiratory symptoms. - She reports that her blood pressure hayden s been elevated, running between 175 and 180 mmHg. - She has been taking nefidipine 30 mg t wice instead of her usual dose to manage her blood pressure. Along with her other medications - Despite the increase in medication, th e patient continues to experience difficulty breathing. - The patient reports persistent cough, which has been problematic despite current inhaler use. - Previously treated for pneumonia with prednisone, which did not alleviate her respiratory symptoms. - CT scan in May of this year showe d bilateral upper lobe ground-glass opacities, left greater than right, with differential considerations including viral atypical infection or hypersensitive pneumonitis. 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 - She has a history of smoking, but quit 23 years ago. Medications - Aspirin - Atorvastatin - Symbicort - Celebrex - Famotidine - Losartan - Nifedipine - Pantoprazole - Trazodone - Venlafaxine - Stool softeners Problem List - Essential Hypertension - Respiratory symptoms - history of asthma - abnormal CT scan - lipid disorder - multiple joint pain - GERD - depression/anxiety - difficulty sleeping - constipation Diagnostic results - Labs done in May showed normal he moglobin levels and normal electrolytes. - Kidney function tests were normal. - CT scan conducted in May revealed bilateral upper lobe ground-glass opacities, left greater than right. [place] [facility] Consultation with Dr. Chambers for pulmonary issues was completed in May. Patient Instructions - Continue taking inhaler medications as prescribed. - Prepare for a CT scan at the end of . - Expect contact from the pulmonary offi ce and CT scan facility to confirm appointments. - Maintain current work schedule accommo dations to ensure attendance at appointments. - increase dose of Procardia to 60 mg co ntinue other medications Review of Systems General: No fever no chills neurological: No headaches no dizziness ear nose throat: No sore throat no hearing difficulty no ear pain cardiovascular: No syncope, no chest pain, no palpitations gastrointestinal: No nausea vomiting or diarrhea endocrine: No polyuria polydipsia no heat intolerance genitourinary: No dysuria skin: No new complaints Physical Exam general: No acute distress HEENT: No acute findings neck: Supple respiratory system: Fair air movement come no audible wheeze, no stridor cardiovascular: S1-S2 RRR gastrointestinal: No pain extremities: No new findings [employer]: Alert awake oriented x3 motor sensory intact skin: Normal turgor [facility] Medical History CAD (coronary artery disease) Environmental allergies Anxiety, generalized Chronic GERD Asthma, moderate Constipation by delayed colonic transit Lipid disorder Chronic vertigo Hypertension, essential Difficulty sleeping Surgical History Stented coronary artery History of shoulder surgery History of tooth extraction History of left oophorectomy Family History Father Myocardial infarction Mother CHF (congestive heart failure) History of back surgery Brother Acute myocardial infarction Sister Acute myocardial infarction Maternal Grandfather Colon cancer Maternal Grandmother Cancer Paternal Grandmother History of heart attack Cervical cancer Paternal Grandfather No problems noted. Maternal Uncle History of heart attack Sister No problems noted. Brother No problems noted. Brother No problems noted. Brother No problems noted. Social History Household Members: Spouse Housing: Apartment Do you presently have visiting nurse or other home services: No Alcohol intake: current Alcohol intake frequency: a few times a week Patient Tobacco Use Status: Former Tobacco user e-Cigarette/Vaping Use: Never Used service: No Current occupational status: employed Current occupation: left handed Gender identity: Female Cognitive needs: No Hearing needs: No Vision needs: No Questionnaire Thrive Questionnaire Date Thrive assessed: 06/16/24 I am a: Patient What is your living situation today?: I have a steady place to live Within the past 12 months, did the food you bought not last and you didn't have the money to get more?: Never true Within the past 12 months, did you worry whether your food would run out before you got money to buy more?: Never true Do you have trouble paying for medicines?: No Do you have trouble getting transportation to medical appointments?: No Do you have trouble paying your heating and electricity bill?: No Do you have trouble taking care of your child, family member or friend?: No Do you have trouble with day-to-day activities such as bathing, preparing meals, shopping, managing finances, etc.?: No Are you currently unemployed and looking for a job?: No Are you interested in more education?: No Please select the resources that you would like help with: None Currently or been in a relationship where the following occur: No concerns reported THRIVE Score: 0 DENA-7 AMB Questionnaire DENA-7 Date DENA - 7 assessed: 07/04/24 Source: Developed by Drs. Rylan Carroll, Amada Callejas, Get Johnston and colleagues, with an educational javier from [email or web address]. Physical exam (Primary Care) Vital Signs: Last Vital Signs Temp 97.9 F 10/03/24 11:16 Pulse 74 10/03/24 11:16 BP 134/74 10/03/24 11:16 Pulse Ox 94 10/03/24 11:16 Oxygen Delivery Method Room Air 10/03/24 11:16 BMI result Body Mass Index 40.1 Tobacco/Smoking Status: Tobacco use Status Tobacco use date assessed 10/03/24 10/03/24 11:23 Patient Tobacco Use Status Former Tobacco user 10/03/24 11:23 e-Cigarette/Vaping Use Never Used 10/03/24 11:23 Thrive Assessment: Date of Thrive Assessment Date Thrive assessed 06/16/24 10/03/24 11:23 Currently or been in a relationship where the following occur: No concerns reported Coding Level of Care Code Est Pt Level 5 (04603) Diagnoses Interstitial pneumonia J84.9 Chronic cough R05.3 Shortness of breath R06.[address] scan, chest R93.89 Hypertension, essential I10 Moderate persistent asthma without complication J45.40 Asthma complication type: uncomplicated Asthma persistence: persistent Lipid disorder E78.9 Difficulty sleeping G47.9 Environmental allergies Z91.09 Constipation by delayed colonic transit K59.01 Chronic GERD K21.9 Anxiety, generalized F41.1 Time Spent (min) 40 Comment Reviewing chart, labs, imaging, [id number], coordination of care Assessment & Plan Assessment & Plan (1) Interstitial pneumonia: Code(s): J84.9 - Interstitial pulmonary disease, unspecified Category: Medical (2) Chronic cough: Code(s): R05.3 - Chronic cough Category: Medical (3) Shortness of breath: Code(s): R06.02 - Shortness of breath Category: Medical (4) Abnormal CT scan, chest: Code(s): R93.89 - Abnormal findings on diagnostic imaging of other specified body structures Category: Medical (5) Hypertension, essential: Code(s): I10 - Essential (primary) hypertension Category: Medical (6) Asthma, moderate: Code(s): J45.909 - Unspecified asthma, uncomplicated Category: Medical Qualifiers: Asthma complication type: uncomplicated Asthma persistence: persistent Qualified Code(s): J45.40 - Moderate persistent asthma, uncomplicated (7) Lipid disorder: Code(s): E78.9 - Disorder of lipoprotein metabolism, unspecified Category: Medical (8) Difficulty sleeping: Code(s): G47.9 - Sleep disorder, unspecified Category: Medical (9) Environmental allergies: Code(s): Z91.09 - Other allergy status, other than to drugs and biological substances Category: Medical (10) Constipation by delayed colonic transit: Code(s): K59.01 - Slow transit constipation Category: Medical (11) Chronic GERD: Code(s): K21.9 - Gastro-esophageal reflux disease without esophagitis Category: Medical (12) Anxiety, generalized: Code(s): F41.1 - Generalized anxiety disorder Category: Medical Plan History - The patient is a 59-year-old female presenting with hypertension and respiratory symptoms. - She reports that her blood pressure has been elevated, running between 175 and 180 mmHg. - She has been taking nefidipine 30 mg twice instead of her usual dose to manage her blood pressure. Along with her other medications - Despite the increase in medication, the patient continues to experience difficulty breathing. - The patient reports persistent cough, which has been problematic despite current inhaler use. - Previously treated for pneumonia with prednisone, which did not alleviate her respiratory symptoms. - CT scan in May of this year showed bilateral upper lobe ground-glass opacities, left greater than right, with differential considerations including viral atypical infection or hypersensitive pneumonitis. 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 - She has a history of smoking, but quit 23 years ago. Medications - Aspirin - Atorvastatin - Symbicort - Celebrex - Famotidine - Losartan - Nifedipine - Pantoprazole - Trazodone - Venlafaxine - Stool softeners Problem List - Essential Hypertension - Respiratory symptoms - history of asthma - abnormal CT scan - lipid disorder - multiple joint pain - GERD - depression/anxiety - difficulty sleeping - constipation Diagnostic results - Labs done in May showed normal hemoglobin levels and normal electrolytes. - Kidney function tests were normal. - CT scan conducted in May revealed bilateral upper lobe ground-glass opacities, left greater than right. [place] [facility] Consultation with Dr. Chambers for pulmonary issues was completed in May. Patient Instructions - Continue taking inhaler medications as prescribed. - Prepare for a CT scan at the end of the month. - Expect contact from the pulmonary office and CT scan facility to confirm appointments. - Maintain current work schedule accommodations to ensure attendance at appointments. - increase dose of Procardia to 60 mg continue other medications Orders: Orders CT chest wo IV con Today J84.9 - Interstitial pulmonary disease, unspecified, R05.3 - Chronic cough, R06.02 - Shortness of breath, R93.89 - Abnormal findings on diagnostic imaging of other specified body structures Referrals Pulmonology Referral J84.9 - Interstitial pulmonary disease, unspecified, R05.3 - Chronic cough, R06.02 - Shortness of breath, R93.89 - Abnormal findings on diagnostic imaging of other specified body structures Medications: Changed From nifedipine ER 30 mg PO DAILY 90 days 90 tabs 0RF To nifedipine ER 60 mg PO DAILY 90 tabs 0RF 90 days
[2024-10-03 11:16] VITALS: BP 134/74; PULSE 74; TEMP 36.6; O2SAT 94; BMI 40.1
== END 2024-10-03 11:34 | disposition home or self-care (01) ==
LOC: HO.HMCC 11:07
PROVIDERS: PCP Internal Medicine; Visit Provider Internal Medicine
DX: J84.9 Interstitial pulmonary disease, unspecified (principal); R05.3 Chronic cough; R06.02 Shortness of breath; R93.89 Abnormal findings on diagnostic imaging of other specified body structures; I10 Essential (primary) hypertension; J45.40 Moderate persistent asthma, uncomplicated; E78.9 Disorder of lipoprotein metabolism, unspecified; G47.9 Sleep disorder, unspecified; Z91.09 Other allergy status, other than to drugs and biological substances; K59.01 Slow transit constipation; K21.9 Gastro-esophageal reflux disease without esophagitis; F41.1 Generalized anxiety disorder

== ENCOUNTER → 2024-10-03 11:06 | Outpatient (BNVA) | payer OTHER, SELFPAY | PROVIDERS: PCP Internal Medicine; Visit Provider Internal Medicine | DX: I10 Essential (primary) hypertension (principal); J84.9 Interstitial pulmonary disease, unspecified; R05.3 Chronic cough; R06.02 Shortness of breath; R93.89 Abnormal findings on diagnostic imaging of other specified body structures; J45.40 Moderate persistent asthma, uncomplicated; E78.9 Disorder of lipoprotein metabolism, unspecified; G47.9 Sleep disorder, unspecified; K59.01 Slow transit constipation; K21.9 Gastro-esophageal reflux disease without esophagitis; F41.1 Generalized anxiety disorder; Z91.09 Other allergy status, other than to drugs and biological substances | CPT/HCPCS: 99212 ==

== ENCOUNTER 2024-10-12 13:16 | Outpatient (AMB) | payer OTHER, SELFPAY ==
--- NOTE | 2024-10-12 13:22 | MHC.OFFVIS ---
Vital Signs 10/12/24 13:24 Height 5 ft 2 in Weight 219 lb BMI 40.1 Intake Visit Reasons: INJ-B/L knee injection-last inj. 07/11/24 Intake Note: Majo is a 59 year old female who presents with complaints of bilateral knee pains. At her last visit on 07/11/24 she was given bilateral knee steroid injections. She states that she got fairly good relief from those injections initially. Her bilateral knee pains have returned. She has tried Tylenol and anti-inflammatory medicines which gave her minimal relief. She has also done physical therapy exercises which aggravated her pain. She wishes to hold off on surgery for as long as possible. Allergies bee pollen (BEE STINGS) Allergy (Severe, Verified 10/12/24 13:36) ANAPHYLAXIS spider venom (SPIDER BITES) Allergy (Mild, Verified 10/12/24 13:36) SWELLING acetaminophen (Vicodin) Allergy (Unknown, Verified 10/12/24 13:36) nausea and vomiting hydrocodone (Vicodin) Allergy (Unknown, Verified 10/12/24 13:36) nausea and vomiting Medication List - Last Reconciled 10/12/24 by Max Dueñas MD albuterol sulfate 90 mcg/actuation 1 puff inhalation Q6H PRN aspirin 81 mg PO DAILY 90 days atorvastatin 80 mg PO DAILY 90 days budesonide-formoterol 160-4.5 mcg/actuation (Symbicort) 2 puffs inhalation BID 30 days celecoxib (Celebrex) 200 mg PO DAILY PRN 3 months famotidine 20 mg PO DAILY losartan 100 mg PO DAILY nifedipine ER 60 mg PO DAILY 90 days pantoprazole 20 mg PO DAILY sennosides-docusate sodium 8.6-50 mg 1 tab-cap PO BEDTIME PRN trazodone 200 mg (2 x 100 mg) PO BEDTIME venlafaxine ER 37.5 mg PO DAILY [facility] Medical History CAD (coronary artery disease) Environmental allergies Anxiety, generalized Chronic GERD Asthma, moderate Constipation by delayed colonic transit Lipid disorder Chronic vertigo Hypertension, essential Difficulty sleeping Surgical History Stented coronary artery History of shoulder surgery History of tooth extraction History of left oophorectomy Family History Father Myocardial infarction Mother CHF (congestive heart failure) History of back surgery Brother Acute myocardial infarction Sister Acute myocardial infarction Maternal Grandfather Colon cancer Maternal Grandmother Cancer Paternal Grandmother History of heart attack Cervical cancer Paternal Grandfather No problems noted. Maternal Uncle History of heart attack Sister No problems noted. Brother No problems noted. Brother No problems noted. Brother No problems noted. Social History Household Members: Spouse Housing: Apartment Do you presently have visiting nurse or other home services: No Alcohol intake: current Alcohol intake frequency: a few times a week Patient Tobacco Use Status: Former Tobacco user e-Cigarette/Vaping Use: Never Used service: No Current occupational status: employed Current occupation: left handed Gender identity: Female Cognitive needs: No Hearing needs: No Vision needs: No Physical Exam Vital Signs: BMI result Body Mass Index 40.1 Const Other: Well-nourished well-developed very friendly female awake alert and oriented x3 in no acute distress Extrem Other: Bilateral knee examination shows minimal effusions, palpable crepitus with range of motion, pain with range of motion, no instability Office Procedures AMB Joint Injection/Aspiration Joint Injection/Aspiration Primary Site: left knee Prep: site was prepped using aseptic technique Injected: 40 mg of, DepoMedrol and 1% plain lidocaine Procedure: The patient tolerated the procedure well Coding 96901 - Large joint Procedure code (CPT) selection complete AMB Joint Injection/Aspiration Joint Injection/Aspiration Primary Site: right knee Prep: site was prepped using aseptic technique Injected: 40 mg of, DepoMedrol and 1% plain lidocaine Procedure: The patient tolerated the procedure well Coding 27241 - Large joint Procedure code (CPT) selection complete Results Reviewed Results Reviewed: X-rays of the patient's bilateral knee show joint space narrowing, subchondral sclerosis, no acute bony abnormalities Assessment & Plan Assessment & Plan (1) Osteoarthritis of left knee: Code(s): M17.12 - Unilateral primary osteoarthritis, left knee Category: Medical (2) Osteoarthritis of right knee: Code(s): M17.11 - Unilateral primary osteoarthritis, right knee Category: Medical Plan Ms. Cheatham presents with bilateral knee pains due to degenerative joint disease. The risks and benefits of bilateral knee cortisone injections were discussed at length with the patient. The patient wished to proceed. She tolerated the injections well. She will continue with her home exercise program. She will contact me prior to her follow-up appointment in 3 months should any questions or concerns arise. The patient also has a ganglion cyst along the volar aspect of her left wrist. Thus, I will have her evaluated by our hand service. Feel free to call me at any time should questions regarding her orthopedic management arise. I spent 22 minutes in reviewing the patient's records and imaging studies, seeing the patient and documenting in the medical record. Orders: Orders AMB Joint Injection/Aspiration Today M17.12 - Unilateral primary osteoarthritis, left knee AMB Joint Injection/Aspiration Today M17.11 - Unilateral primary osteoarthritis, right knee Coding Level of Care Code Est Pt Level 3 (14373) Complex EM visit Add On G2211 Diagnoses Osteoarthritis of left knee M17.12 Osteoarthritis of right knee M17.11 CPT Codes Coding - 52971 Large joint: 94894 - Large joint ([id number]) Coding - 98298 Large joint: 11941 - Large joint ([id number])
[2024-10-12 13:24] VITALS: BMI 40.1
== END 2024-10-12 13:51 | disposition home or self-care (01) ==
LOC: HO.HOS 13:17
PROVIDERS: PCP Internal Medicine; Visit Provider Orthopaedic Surgery
DX: M17.0 Bilateral primary osteoarthritis of knee (principal)
CPT/HCPCS: 20610; 99213

== ENCOUNTER → 2024-10-12 13:16 | Outpatient (BNVA) | payer OTHER, SELFPAY | PROVIDERS: PCP Internal Medicine; Visit Provider Orthopaedic Surgery | DX: M17.12 Unilateral primary osteoarthritis, left knee (principal); M17.11 Unilateral primary osteoarthritis, right knee | CPT/HCPCS: 20610; 99212; J1010; J2003 ==

== ENCOUNTER 2024-11-28 13:34 | Outpatient (AMB) | payer OTHER, SELFPAY ==
--- NOTE | 2024-11-28 13:58 | MHC.OFFVIS ---
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 States she has a cyst on her dorsal aspect of wrist, that has increase in size and is causing pain. States she feels pressure with certain motions and would like to have it removed. She only has numbness or tingling in her thumb. No injury she can recall. Allergies bee pollen (BEE STINGS) Allergy (Severe, Verified 11/28/24 14:08) ANAPHYLAXIS spider venom (SPIDER BITES) Allergy (Mild, Verified 11/28/24 14:08) SWELLING acetaminophen (Vicodin) Allergy (Unknown, Verified 11/28/24 14:08) nausea and vomiting hydrocodone (Vicodin) Allergy (Unknown, Verified 11/28/24 14:08) nausea and vomiting HPI HPI Newprob-Left wrist cyst/ pain: Details: Majo is a 59 year old right hand dominant woman who presents with complaints of a left wrist mass. She complains of a mass on the volar aspect of her left wrist, onset ~2 months ago. This has been changing in size, occasionally is painful and throbs/pulses, and causes her to experience pressure in her wrist with certain motions. She complains of intermittent numbness in her right small finger, primarily at night. She denies any numbness during the day. She denies any numbness in her other fingers. She is S/P right small finger proximal phalanx fracture CRPP, DOS: 08/29/20. [facility] Medical History CAD (coronary artery disease) Environmental allergies Anxiety, generalized Chronic GERD Asthma, moderate Constipation by delayed colonic transit Lipid disorder Chronic vertigo Hypertension, essential Difficulty sleeping Surgical History Stented coronary artery History of shoulder surgery History of tooth extraction History of left oophorectomy Family History Father Myocardial infarction Mother CHF (congestive heart failure) History of back surgery Brother Acute myocardial infarction Sister Acute myocardial infarction Maternal Grandfather Colon cancer Maternal Grandmother Cancer Paternal Grandmother History of heart attack Cervical cancer Paternal Grandfather No problems noted. Maternal Uncle History of heart attack Sister No problems noted. Brother No problems noted. Brother No problems noted. Brother No problems noted. Social History Household Members: Spouse Housing: Apartment Do you presently have visiting nurse or other home services: No Alcohol intake: current Alcohol intake frequency: a few times a week Patient Tobacco Use Status: Former Tobacco user e-Cigarette/Vaping Use: Never Used service: No Current occupational status: employed Current occupation: left handed Gender identity: Female Cognitive needs: No Hearing needs: No Vision needs: No Review of Systems Const All systems reviewed & are unremarkable except as noted in HPI and below Physical Exam Vital Signs: BMI result Body Mass Index 40.1 Const General: cooperative, healthy appearing and no acute distress Orientation/consciousness: patient oriented x3 HEENT Head: Yes normocephalic and Yes atraumatic Eyes EOM: EOMs intact bilaterally Resp Effort & Inspection: normal respiratory effort and able to speak in complete sentences Cardio Jugular venous distension: no JVD Skin General skin exam: turgor normal Rashes: no rashes Neuro General: patient oriented x3 Extrem Other: Evaluation of Bilateral Upper Extremity: The patient is alert, oriented, and in no acute distress Neuro: Normal sensation to the tips of all digits bilaterally Good ABduction & ADduction Vascular: Cap refill brisk ROM: She can make a fist and extend all her digits No locking or catching Skin: No lacerations or abrasions. General: No Ecchymosis. No Erythema or evidence of infection. There is a mass on the volar aspect of her Left wrist, over the scaphoid tubercle, just distal to the distal wrist crease. Measuring ~5-6mm in diameter. This is pulsatile and there is a visible vessel beneath the skin. There may be a small ganglion udnerneath the branch of the radial artery This is tender to even light touch Psych Appearance: grossly normal Affect: normal affect Attitude: cooperative Assessment & Plan Assessment & Plan (1) Numbness and tingling in right hand: Code(s): R20.0 - Anesthesia of skin; R20.2 - Paresthesia of skin Category: Medical (2) Mass of left wrist: Code(s): R22.32 - Localized swelling, mass and lump, left upper limb Category: Medical Plan Assessment & Plan: 1. Left volar wrist mass Measuring ~5-6mm in diameter I educated her about this condition I discussed operative and non-operative treatment options This appears to be directly underneath a branch of the radial artery At this time I recommend we manage this conservatively. and she is in agreement She was fitted for a velcro wrist splint, to be worn with daily activity She will follow up in 7-8 weeks to see how she is doing This should be a 30 minute appointment 2. Right ulnar hand numbness Primarily at night & with activities Normal sensation in the median nerve distribution I ordered a NCS to assess for peripheral nerve compression She will follow up in 7-8 weeks for review Scribed for Leticia Braun MD by Hussain De La O, medical billing specialist, on 11/28/24 at 2:50 PM, EST. Orders: Orders XR hand RT min 3V Today M79.641 - Pain in right hand Coding Level of Care Code Est Pt Level 4 (13422) Diagnoses Numbness and tingling in right hand R20.0; R20.2 Mass of left wrist R22.32
[2024-11-28 14:07] VITALS: BMI 40.1
== END 2024-11-28 14:57 | disposition home or self-care (01) ==
LOC: HO.HOS 13:35
PROVIDERS: PCP Internal Medicine; Visit Provider Orthopaedic Surgery
DX: R20.0 Anesthesia of skin (principal); R20.2 Paresthesia of skin; R22.32 Localized swelling, mass and lump, left upper limb
CPT/HCPCS: 99213

== ENCOUNTER 2024-11-28 13:34 | Outpatient (REF) | payer OTHER, SELFPAY | END 2024-11-28 13:35 | disposition home or self-care (01) | LOC: HO.HOSX 13:34 | PROVIDERS: PCP Internal Medicine; Visit Provider Orthopaedic Surgery | DX: R20.0 Anesthesia of skin (principal); R20.2 Paresthesia of skin; R22.32 Localized swelling, mass and lump, left upper limb; M79.641 Pain in right hand | CPT/HCPCS: 99212 ==

== ENCOUNTER 2024-12-01 15:03 | Emergency (ER) | payer OTHER, SELFPAY ==
--- NOTE | ~2024-12-01 | XR_ITS ---
EXAMINATION: XR CHEST CLINICAL INFORMATION: cuogh, SOB COMPARISON: June 01, 2024 TECHNIQUE: 2 views of the chest were obtained. FINDINGS: Bilateral apical lung scarring. Mild pulmonary reticular pattern. No hyperinflation. No consolidation, pleural effusion or pneumothorax. Cardiomediastinal silhouette size is normal. Calcified plaques in the thoracic aortic arch. Multilevel thoracic spondylosis with a kyphotic deformity. There is calcification of the anterior longitudinal ligament. Degenerative changes in the acromioclavicular joints pronounced on the right shoulder. XR/XR chest 2V IMPRESSION: Consider chronic interstitial lung disease without acute airspace disease based upon x-ray. Multilevel spondylosis and questionable ankylosis spondylitis. Atherosclerosis disease, aorta. Electronically signed by: Da Gray MD 12/01/2024 04:02 PM EDT
[2024-12-01 15:21] VITALS: BP 210/94; PULSE 73; RESP 18; TEMP 36.6; O2SAT 93; BMI 39.5
--- NOTE | 2024-12-01 15:25 | ED.SOB ---
HPI - SOB/Dyspnea General Chief Complaint: Upper Respiratory Symptoms Stated Complaint: Cough Time Seen by Provider: 12/01/24 20:03 Source: patient Mode of arrival: ambulatory Limitations: no limitations History of Present Illness ED Provider: Mariana Willard APRN HPI Narrative: 59 yo female with past medical history of asthma (not currently on supplemental O2) hypertension, GERD, osteoarthritis, GEOFFREY, CAD with prior stenting here with complaints of shortness of breath, coughing, fever with max temp of 101 x 1 week. Has a history of pneumonia and this feels similar. Patient denies any chest pain, leg swelling, leg pain, vomiting, diarrhea. Related Data Home Medications ?Medication ?Instructions ?Recorded ?Confirmed albuterol sulfate 90 mcg/actuation 1 puff inhalation Q6H PRN for 06/01/24 10/12/24 aerosol inhaler wheezing Previous Rx's ?Medication ?Instructions ?Recorded sennosides 8.6 mg-docusate sodium 1 tab-cap PO BEDTIME PRN 07/19/24 50 mg tablet Constipation #90 tabs celecoxib 200 mg capsule (Celebrex) 200 mg PO DAILY PRN pain 3 months 07/28/24 #90 caps pantoprazole 20 mg tablet,delayed 20 mg PO DAILY Heartburn #90 tabs 08/23/24 release aspirin 81 mg tablet,delayed 81 mg PO DAILY 90 days #90 tabs 09/29/24 release nifedipine 60 mg tablet,extended 60 mg PO DAILY 90 days #90 tabs 10/03/24 release 24 hr atorvastatin 80 mg tablet 80 mg PO DAILY 90 days #90 tabs 10/23/24 famotidine 20 mg tablet 20 mg PO DAILY #90 tabs 10/23/24 venlafaxine 37.5 mg 37.5 mg PO DAILY #90 caps 10/23/24 capsule,extended release 24 hr trazodone 100 mg tablet 200 mg (2 x 100 mg) PO BEDTIME #90 11/03/24 tabs losartan 100 mg tablet 100 mg PO DAILY #90 tabs 11/05/24 budesonide-formoterol HFA 160 2 puff inhalation BID 30 days 11/23/24 mcg-4.5 mcg/actuation aerosol #10.2 grams inhaler (Symbicort) azithromycin 250 mg tablet 250 mg PO DAILY 4 days #4 tabs 12/01/24 codeine 10 mg-guaifenesin 100 mg/5 5 ml PO Q6H PRN cough #40 mL 12/01/24 mL oral liquid (Virtussin AC) prednisone 20 mg tablet 40 mg (2 x 20 mg) PO DAILY #8 tabs 12/01/24 Allergies Allergy/AdvReac Type Severity Reaction Status Date / Time bee pollen (BEE STINGS) Allergy Severe ANAPHYLAXIS Verified 12/01/24 15:22 spider venom (SPIDER BITES) Allergy Mild SWELLING Verified 12/01/24 15:22 acetaminophen (Vicodin) Allergy Unknown nausea and Verified 12/01/24 15:22 vomiting hydrocodone (Vicodin) Allergy Unknown nausea and Verified 12/01/24 15:22 vomiting Review of Systems Review of Systems: Yes all other systems are reviewed and are negative Constitutional: Constitutional: Reports no additional constitutional complaints, Denies body ache(s), Denies chills, Denies fever(s), Denies headache(s) and Denies weakness Eyes: Eyes: Reports no additional eye complaints and Denies change in vision ENT: Reports system reviewed and no additional complaints, except as documented, Denies dizziness, Denies headache(s), Denies nasal congestion, Denies nasal discharge and Denies neck pain Cardiovascular: Cardiovascular: Reports no additional cardiovascular complaints, Denies chest pain, Denies leg edema and Reports dyspnea Respiratory: Respiratory: Reports no additional respiratory complaints, Reports cough and Reports dyspnea Gastrointestinal: Gastrointestinal: Reports no additional gastrointestinal complaints, Denies abdominal pain, Denies diarrhea, Denies nausea and Denies vomiting Genitourinary: Genitourinary: Reports no additional female genitourinary complaints and Denies urinary incontinence Musculoskeletal: Musculoskeletal: Reports no additional musculoskeletal complaints, Denies back pain, Denies arthralgias, Denies joint swelling, Denies neck pain, Denies numbness and Denies tingling Integumentary/Breasts: Skin/Breast: Reports system reviewed and no additional complaints, except as docu and Denies rash Neurologic: Reports system reviewed and no additional complaints, except as documented, Denies Abnormal speech present, Denies dizziness, Denies headache(s), Denies numbness, Denies tingling and Denies weakness PMFSH Past Medical History Attestation statement: The following information was validated with the patient. Source: old records reviewed and nursing notes reviewed Medical History CAD (coronary artery disease) Environmental allergies Anxiety, generalized Chronic GERD Asthma, moderate Constipation by delayed colonic transit Lipid disorder Chronic vertigo Hypertension, essential Difficulty sleeping Surgical History Stented coronary artery History of shoulder surgery History of tooth extraction History of left oophorectomy Family History Family History Father Myocardial infarction Mother CHF (congestive heart failure) History of back surgery Brother Acute myocardial infarction Sister Acute myocardial infarction Maternal Grandfather Colon cancer Maternal Grandmother Cancer Paternal Grandmother History of heart attack Cervical cancer Paternal Grandfather No problems noted. Maternal Uncle History of heart attack Sister No problems noted. Brother No problems noted. Brother No problems noted. Brother No problems noted. Social History Social History Household Members: Spouse Housing: Apartment Do you presently have visiting nurse or other home services: No Alcohol intake: current Alcohol intake frequency: a few times a week Patient Tobacco Use Status: Former Tobacco user e-Cigarette/Vaping Use: Never Used Advance Directives: Yes Advance Directives on File: Yes Advance Directives Date on File: 06/09/24 Do you have a plan to hurt others: No Plan service: No Current occupational status: employed Current occupation: left handed Gender identity: Female Cognitive needs: No Hearing needs: No Vision needs: No Physical Exam Vital Signs: Vital Signs: Last Vital Signs Temp 98.3 F 12/01/24 20:21 Pulse 69 12/01/24 20:21 Resp 20 12/01/24 20:21 BP 214/76 H 12/01/24 20:21 Pulse Ox 93 12/01/24 20:21 O2 Del Method Room Air 12/01/24 20:21 BMI result Body Mass Index 39.5 Const: General: cooperative, healthy appearing, comfortable and no acute distress Orientation/consciousness: patient oriented x3 Limitations: no limitations HEENT: Head: Yes normal to inspection Ears: hearing grossly normal bilaterally General nose exam: Normal external nose present Face and sinus: Yes normal facial exam Mouth: Normal oral and palatal mucosa present Throat: Yes posterior oropharynx normal Eyes: General: appearance normal, both eyes and all related structures Pupils: Equal, round and reactive pupils present Neck: Neck: Yes normal visual inspection Chest: Chest palpation & inspection: normal inspection of the chest Resp: Effort & Inspection: normal respiratory effort Auscultation: clear to auscultation bilaterally Cardio: Rate: regular rate Rhythm: regular rhythm Peripheral pulses: Peripheral pulses 2+ throughout GI: Inspection: Yes normal to inspection Palpation (GI): Soft to palpation and nontender Auscultation: normal bowel sounds Back/Spine/Pelvis: Thoracic/Lumbar Spine: thoracic and lumbar spine normal to inspection Skin: General skin exam: no rashes or lesions noted Neuro: General: patient oriented x3, no focal motor deficits and normal sensation to monofilament Cranial nerves: Yes Equal, round and reactive pupils present Cognition (Neuro): normal cognition Speech: No Abnormal speech present Gait exam (Neuro): Normal gait present Motor exam (neuro): 5/5 motor strength present throughout Extrem: General: Yes normal to inspection, Yes no calf tenderness and No pedal edema Course Course Course Narrative: Mariana Willard SAP [employer] BI DEVELOPER 12/01/24 1525 59 yo female with past medical history of asthma (not currently on supplemental O2) hypertension, GERD, osteoarthritis, GEOFFREY, CAD with prior stenting here with complaints of shortness of breath, coughing, fever with max temp of 101 x 1 week. Will obtain labs, CXR, viral testing. Reevaluation(s) Reevaluation #1: Viral testing is negative. Chest x-ray shows chronic interstitial lung disease. Labs are unremarkable. Patient likely has bronchitis or asthma exacerbation. Due to reports of fever at home although not here in the emergency room I will treat her with an antibiotic for several days just to cover a superimposed pneumonia that is not seen on x-ray. Her oxygen saturation is greater than 93% and nursing for formed an ambulatory oxygen saturation. She has mild wheezing but I do not believe that she needs IV magnesium or IV steroids at this point. I did offer her a treatment and appeared of observation in the emergency room but she would like to go home with oral medications. Therefore ordered her 1st dose of prednisone, antibiotic and cough suppressant. It seems that her biggest concern is her cough that she has in her ability to sleep at night. I did go over strict return precautions and when to return to the emergency room. Patient is comfortable plan for discharge home. Reevaluation #2: 3:46 AM 12/02/2024 (Lorarine DANIELS): Of note this provider received a phone call from the patient after she was discharged home. Patient advised she went to her pharmacy and was told they do not have the prescription for azithromycin. This provider contacted the 24 hour [facility] on [address] and spoke to the pharmacist to confirm that the patient's prescription had arrived at the patient's preferred pharmacy with the other 2 prescriptions, however it appears the prescription was not filled prior to the closing at that location. 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 The patient was called back and provided this information, patient was very appreciative. Medications Administered Discontinued Medications Generic Name Dose Route Start Last Admin Trade Name Viniq PRN Reason Stop Dose Admin Azithromycin 500 mg 12/01/24 20:03 12/01/24 20:14 Azithromycin 500 Mg Tablet PO 12/01/24 20:04 500 mg ONCE ONE Administration Benzonatate 200 mg 12/01/24 20:03 12/01/24 20:14 Benzonatate 100 Mg Capsule PO 12/01/24 20:04 200 mg ONCE ONE Administration Guaifenesin/Codeine Phosphate 10 ml 12/01/24 20:03 12/01/24 20:13 Guaifen/Codeine Sf 200/20/10ml 10 Ml Liquid PO 12/01/24 20:04 10 ml STAT STA Administration Prednisone 60 mg 12/01/24 20:03 12/01/24 20:14 Prednisone 20 Mg Tablet PO 12/01/24 20:04 60 mg ONCE ONE Administration Medical Decision Making Medical Decision Making MDM Narrative: 59 yo female with past medical history of asthma (not currently on supplemental O2) hypertension, GERD, osteoarthritis, GEOFFREY, CAD with prior stenting here with complaints of shortness of breath, coughing, fever with max temp of 101 x 1 week. Has a history of pneumonia and this feels similar. Patient denies any chest pain, leg swelling, leg pain, vomiting, diarrhea. Lungs are clear. Patient has a frequent bronchospastic cough. Her oxygen saturations are greater than 93% even with ambulation. She is hypertensive. She is asymptomatic when it comes to her hypertension. She has a history of chronic hypertension and takes medication for this. I will obtain viral testing, chest x-ray, lab work Differential Diagnosis Differential Diagnoses: The differential diagnosis associated with the presentation includes Viral syndrome, bronchitis, asthma exacerbation, pneumonia Low suspicion for PE (no risk factors for same, no hypoxia or tachypnea, no clinical findinsgs concerning for DVT or PE), ACS Admission/Observation Consideration of admission/observation: Escalation of care including admission/observation considered Likely bronchitis, consider asthma exacerbation. Patient is not hypoxic requiring supplemental oxygen. No significant wheezing on exam that would suggest need for frequent albuterol nebulizers. Patient can be discharged home with supportive measures and strict return precautions Lab Data MDM Lab Attestation statement: I reviewed the patient's lab results. 12/01/24 15:55 12/01/24 15:55 Labs: Lab Results 12/01/24 Range/Units 15:55 WBC 7.8 (4.8-10.8) X10*3/uL RBC 5.15 (4.20-5.50) X10*6/uL Hgb 15.4 (12.0-16.0) g/dl Hct 44.8 (37.0-47.0) % MCV 87.0 (80.0-98.0) fL MCH 29.9 (27.0-33.0) pg MCHC 34.4 (31.0-35.0) g/dl RDW 15.7 (11.0-16.0) % Plt Count 216 D (160-400) X10*3/uL MPV 9.4 (9.4-12.3) fL Immature Gran % (Auto) 0.6 H (0.0-0.4) % Neut % (Auto) 62.8 (45-73) % Lymph % (Auto) 25.5 (20-40) % Dare % (Auto) 9.2 (2-11) % Eos % (Auto) 1.5 (0-4) % Baso % (Auto) 0.4 (0-2) % Lymph # (Auto) 2.0 (1.2-4.9) X10*3/uL Dare # (Auto) 0.7 (0.1-1.2) X10*3/uL Eos # (Auto) 0.1 (0.0-0.4) X10*3/uL Baso # (Auto) 0.0 (0.0-0.2) X10*3/uL Abs Immat Gran (auto) 0.05 H (0.00-0.03) X10*3/uL Absolute Neuts (auto) 4.9 (2.0-8.3) x10*3/uL Absolute Nucleated RBC 0.000 (0.0-0.012) X10*3/uL Nucleated RBC % (auto) 0.0 (0.0-0.2) /100WBC Sodium 141 (135-145) mmol/L Potassium 3.7 D (3.3-5.1) mmol/L Chloride 106 (96-108) mmol/L Carbon Dioxide 26 (22-29) mmol/L Anion Gap 13 (12-20) BUN 13 (9-16) mg/dL Creatinine 0.79 (0.5-1.4) mg/dL Estim Creat Clear Calc 81.7 Estimated GFR > 60 Random Glucose 109 (60-115) mg/dL Calcium 9.1 D (8.4-10.2) mg/dL Total Bilirubin 0.5 (0.0-1.0) mg/dL Direct Bilirubin 0.2 (0.0-0.5) mg/dL AST 25 (5-31) U/L ALT 24 (0-31) U/L Alkaline Phosphatase 116 (39-117) U/L Total Protein 7.1 (6.5-8.0) g/dL Albumin 4.2 (3.5-5.0) g/dL Influenza Type A (PCR) NEGATIVE (Negative) Influenza Type B (PCR) NEGATIVE (Negative) RSV RNA Qual (PCR) NEGATIVE (Negative) SARS-CoV-2 RNA (RT-PCR) NEGATIVE (Negative) Independent Interpretation I performed an independent interpretation of an: Plain X-Ray Interpretation: I independently viewed the x-ray and agree with the radiology report Radiology Impression Discussion of test interpretation with radiology: I have reviewed the radiologist's reading. Radiologist Impression: [address] [address] XRay Report Signed Patient: Majo Cheatham MR#: [id number] : 1965 Acct:[id number] Age/Sex: 59 / F ADM Date: 12/01/24 Loc: HO.ED Attending Dr: Ordering Physician: Mariana Willard NP Date of Service: 12/01/24 Procedure(s): XR chest 2V Accession Number(s): [id number] cc: Dee Joseph MD; Mariana Willard NP~ EXAMINATION: XR CHEST CLINICAL INFORMATION: cuogh, SOB COMPARISON: June 01, 2024 TECHNIQUE: 2 views of the chest were obtained. FINDINGS: Bilateral apical lung scarring. Mild pulmonary reticular pattern. No hyperinflation. No consolidation, pleural effusion or pneumothorax. Cardiomediastinal silhouette size is normal. Calcified plaques in the thoracic aortic arch. Multilevel thoracic spondylosis with a kyphotic deformity. There is calcification of the anterior longitudinal ligament. Degenerative changes in the acromioclavicular joints pronounced on the right shoulder. XR/XR chest 2V IMPRESSION: Consider chronic interstitial lung disease without acute airspace disease based upon x-ray. Multilevel spondylosis and questionable ankylosis spondylitis. Atherosclerosis disease, aorta. Discharge Plan Discharge Clinical Impression: Bronchitis Patient Disposition: Home, Self-Care Instructions: Acute Bronchitis (ED) Additional Instructions: Continue your home inhalers Take your next doses of prednisone and azithromycin tomorrow Take the cough medication as needed Take Motrin or tylenol if able as needed for pain Follow-up with your PCP as scheduled Return for any worsening symptoms Your blood pressure was elevated during her visit today. Please follow-up with your primary care doctor to recheck your blood pressure Prescriptions: New azithromycin 250 mg tablet 250 mg PO DAILY 4 Days Qty: 4 0RF Rx Instructions: start on day 2 of therapy codeine-guaifenesin [Virtussin AC] 10-100 mg/5 mL liquid 5 ml PO Q6H PRN (Reason: cough) Qty: 40 0RF prednisone 20 mg tablet 40 mg PO DAILY Qty: 8 0RF No Action sennosides-docusate sodium 8.6-50 mg tablet 1 tab-cap PO BEDTIME PRN (Reason: Constipation) Qty: 90 3RF celecoxib [Celebrex] 200 mg capsule 200 mg PO DAILY PRN (Reason: pain) 90 Days Qty: 90 3RF pantoprazole 20 mg tablet,delayed release (/EC) 20 mg PO DAILY Qty: 90 0RF aspirin 81 mg tablet,delayed release (DR/EC) 81 mg PO DAILY 90 Days Qty: 90 3RF atorvastatin 80 mg tablet 80 mg PO DAILY 90 Days Qty: 90 0RF venlafaxine 37.5 mg capsule,extended release 24hr 37.5 mg PO DAILY Qty: 90 0RF famotidine 20 mg tablet 20 mg PO DAILY Qty: 90 0RF trazodone 100 mg tablet 200 mg PO BEDTIME Qty: 90 0RF losartan 100 mg tablet 100 mg PO DAILY Qty: 90 0RF budesonide-formoterol [Symbicort] 160-4.5 mcg/actuation HFA aerosol inhaler 2 puff inhalation BID 30 Days Qty: 10.2 2RF albuterol sulfate 90 mcg/actuation HFA aerosol inhaler 1 puff inhalation Q6H PRN (Reason: for wheezing) nifedipine 60 mg tablet extended release 24hr 60 mg PO DAILY 90 Days Qty: 90 0RF Referrals: Dee Joseph MD [Primary Care Provider, Internal Medicine] Stand Alone Forms: Work/School Release Interventions: ED Discharge Assessment Last Done: 12/01/24 20:21 Discharge Date/Time: 12/01/24 20:21 Print Language: Hong Konger
[2024-12-01 15:59] LABS: MANUAL DIFF FLAG NO
[2024-12-01 16:00] LABS: Hematocrit 44.8 % (37.0-47.0); Hemoglobin 15.4 g/dl (12.0-16.0); Imm Gran Abs Auto 0.05 X10*3/uL (0.00-0.03); Imm Gran Pct Auto 0.6 % (0.0-0.4); Lymphocytes Absolute Auto 2.0 X10*3/uL (1.2-4.9); Mean Corpuscular HGB Conc 34.4 g/dl (31.0-35.0); Mean Corpuscular Hemoglobin 29.9 pg (27.0-33.0); Mean Corpuscular Volume 87.0 fL (80.0-98.0); NRBC Abs Auto 0.000 X10*3/uL (0.0-0.012); NRBC Pct Auto 0.0 /100WBC (0.0-0.2); Platelet Count 216 X10*3/uL (160-400); Red Blood Count 5.15 X10*6/uL (4.20-5.50); White Blood Count 7.8 X10*3/uL (4.8-10.8)
[2024-12-01 16:17] LABS: Alanine Aminotransferase 24 U/L (0-31); Albumin Level 4.2 g/dL (3.5-5.0); Alkaline Phosphatase 116 U/L (39-117); Anion Gap 13 (12-20); Aspartate Amino Transferase 25 U/L (5-31); Blood Urea Nitrogen 13 mg/dL (9-16); Calcium 9.1 mg/dL (8.4-10.2); Carbon Dioxide 26 mmol/L (22-29); Chloride 106 mmol/L (96-108); Creatinine Clr Calc Pharmacy 81.7; Estimated Glomerular Filt Rate > 60; Potassium 3.7 mmol/L (3.3-5.1); Sodium 141 mmol/L (135-145); Total Protein 7.1 g/dL (6.5-8.0)
[2024-12-01 16:42] LABS: Resp Syncy Virus RNA Qual PCR NEGATIVE (Negative); SARS COV2 PCR INHOUSE NEGATIVE (Negative)
[2024-12-01 19:43] VITALS: BP 214/73; PULSE 69; RESP 20; O2SAT 95
[2024-12-01 19:44] VITALS: BP 214/73; PULSE 69; RESP 20; O2SAT 95
[2024-12-01 20:03] VITALS: O2SAT 93
--- NOTE | 2024-12-01 20:04 | PC.NURSE ---
Ambulatory pulse oximetry 93-95% on room air. ALVA Willard aware. Per ASSISTANT CREDIT MANAGER, plan for discharge home with Rx medications: Prednisone, Antibiotics, Cough Medicine.
[2024-12-01] MEDS: guaiFEN/Codeine SF 200/20/10ML 10 ML LIQUID PO (20:13)
[2024-12-01 20:21] VITALS: BP 214/76; PULSE 69; RESP 20; TEMP 36.8; O2SAT 93
== END 2024-12-01 20:21 | disposition home or self-care (01) ==
LOC: HO.ED 20:19
PROVIDERS: Nurse Practitioner Family; Emergency Provider Emergency Medicine; PCP Internal Medicine
DX: J40 Bronchitis, not specified as acute or chronic (principal); R06.02 Shortness of breath; I25.10 Atherosclerotic heart disease of native coronary artery without angina pectoris; R50.9 Fever, unspecified; I10 Essential (primary) hypertension; R05.9 Cough, unspecified; Z79.899 Other long term (current) drug therapy; Z03.818 Encounter for observation for suspected exposure to other biological agents ruled out; Z87.891 Personal history of nicotine dependence
CPT/HCPCS: 71046; 80048; 80076; 85025; 87637; 99283

== ENCOUNTER → 2024-12-01 15:27 | Outpatient (BNV) | payer OTHER, SELFPAY | PROVIDERS: PCP Internal Medicine; Visit Provider Radiology Diagnostic Radiology | DX: J84.9 Interstitial pulmonary disease, unspecified (principal) | CPT/HCPCS: 71046 ==

== ENCOUNTER 2024-12-06 11:43 | Outpatient (AMB) | payer OTHER, SELFPAY ==
[2024-12-06 11:46] VITALS: BP 144/76; PULSE 75; TEMP 36.6; O2SAT 96; BMI 39.9
--- NOTE | 2024-12-06 11:46 | MHC.PC.OV ---
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 Accompanied by: Self / Same As Patient Allergies bee pollen (BEE STINGS) Allergy (Severe, Verified 12/06/24 11:47) ANAPHYLAXIS spider venom (SPIDER BITES) Allergy (Mild, Verified 12/06/24 11:47) SWELLING acetaminophen (Vicodin) Allergy (Unknown, Verified 12/06/24 11:47) nausea and vomiting hydrocodone (Vicodin) Allergy (Unknown, Verified 12/06/24 11:47) nausea and vomiting Medication List - Last Reconciled 12/06/24 by Dee Joseph MD albuterol sulfate 90 mcg/actuation 1 puff inhalation Q6H PRN aspirin 81 mg PO DAILY 90 days atorvastatin 80 mg PO DAILY 90 days budesonide-formoterol 160-4.5 mcg/actuation (Symbicort) 2 puffs inhalation BID 30 days celecoxib (Celebrex) 200 mg PO DAILY PRN 3 months famotidine 20 mg PO DAILY losartan 100 mg PO DAILY nifedipine ER 60 mg PO DAILY 90 days pantoprazole 20 mg PO DAILY sennosides-docusate sodium 8.6-50 mg 1 tab-cap PO BEDTIME PRN trazodone 200 mg (2 x 100 mg) PO BEDTIME venlafaxine ER 37.5 mg PO DAILY Tobacco use date assessed: 10/03/24 Dental Screening Dental Screen Date: 10/03/24 HPI annual HPI Details Emergency room visit follow-up History of Present Illness The patient is a 59-year-old female presenting with persistent cough and congestion following an emergency room visit. Cough and Congestion: - Presented to the emergency room with a cough and a fever of 101?F lasting for 1 week. - Chest X-ray indicated chronic interstitial lung disease. - Previous diagnosis of pneumonia. - Treated with antibiotics and received IV magnesium and IV steroids in the emergency room. - Discharged with azithromycin, codeine cough medicine, and prednisone 20 mg (40 tablets). - During follow-up, reports persistent cough, feeling congested, and being unable to take deep breaths. - Mild wheezing was noted previously. - Denied going back to work and should remain off work for health recovery. - Additional treatment plans for managing symptoms were discussed. Medical History: - Asthma - Hypertension - Osteoarthritis - Obstructive sleep apnea - Gonorrhea - Coronary artery disease with a history of stenting - History of pneumonia Medications: - Celebrex for osteoarthritis - Pantoprazole for gastroesophageal reflux disease - Atorvastatin for hyperlipidemia - Venlafaxine for depression - Famotidine for gastroesophageal reflux disease - Trazodone for insomnia - Losartan for hypertension - Symbicort for asthma - Nifedipine for hypertension Social History: - Occupation: Employed, but currently off work due to health reasons - Family: ; mentioned to have similar health symptoms Diagnostic Results: - Chest X-ray: Chronic interstitial lung disease - Labs: Unremarkable Problem List - Asthma exacerbation - Chronic interstitial lung disease - Hypertension - Osteoarthritis - Obstructive sleep apnea - Coronary artery disease - Gonorrhea Patient Instructions - Rest at home and hydrate adequately. - Avoid returning to work until cleared, estimated off work until 13 December - Continue prescribed medications, with cough medicine reserved for night use. - Follow prescribed antibiotic course and additional prednisone as advised. 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 oriented x3 motor sensory intact Skin: Normal turgor PFSH Medical History CAD (coronary artery disease) Environmental allergies Anxiety, generalized Chronic GERD Asthma, moderate Constipation by delayed colonic transit Lipid disorder Chronic vertigo Hypertension, essential Difficulty sleeping Surgical History Stented coronary artery History of shoulder surgery History of tooth extraction History of left oophorectomy Family History Father Myocardial infarction Mother CHF (congestive heart failure) History of back surgery Brother Acute myocardial infarction Sister Acute myocardial infarction Maternal Grandfather Colon cancer Maternal Grandmother Cancer Paternal Grandmother History of heart attack Cervical cancer Paternal Grandfather No problems noted. Maternal Uncle History of heart attack Sister No problems noted. Brother No problems noted. Brother No problems noted. Brother No problems noted. Social History Household Members: Spouse Housing: Apartment Do you presently have visiting nurse or other home services: No Alcohol intake: current Alcohol intake frequency: a few times a week Patient Tobacco Use Status: Former Tobacco user e-Cigarette/Vaping Use: Never Used Advance Directives Date on File: 06/09/24 service: No Current occupational status: employed Current occupation: left handed Gender identity: Female Cognitive needs: No Hearing needs: No Vision needs: No Questionnaire Thrive Questionnaire Date Thrive assessed: 06/16/24 I am a: Patient What is your living situation today?: I have a steady place to live Within the past 12 months, did the food you bought not last and you didn't have the money to get more?: Never true Within the past 12 months, did you worry whether your food would run out before you got money to buy more?: Never true Do you have trouble paying for medicines?: No Do you have trouble getting transportation to medical appointments?: No Do you have trouble paying your heating and electricity bill?: No Do you have trouble taking care of your child, family member or friend?: No Do you have trouble with day-to-day activities such as bathing, preparing meals, shopping, managing finances, etc.?: No Are you currently unemployed and looking for a job?: No Are you interested in more education?: No Please select the resources that you would like help with: None Currently or been in a relationship where the following occur: No concerns reported THRIVE Score: 0 DENA-7 AMB Questionnaire DENA-7 Date DENA - 7 assessed: 07/04/24 Source: Developed by Drs. Rylan Carroll, Amada Callejas, Get Johnston and colleagues, with an educational javier from [employer]. Physical exam (Primary Care) Vital Signs: Last Vital Signs Temp 97.8 F 12/06/24 11:46 Pulse 75 12/06/24 11:46 BP 144/76 H 12/06/24 11:46 Pulse Ox 96 12/06/24 11:46 Oxygen Delivery Method Room Air 12/06/24 11:46 BMI result Body Mass Index 39.9 Tobacco/Smoking Status: Tobacco use Status Tobacco use date assessed 10/03/24 12/06/24 11:53 Patient Tobacco Use Status Former Tobacco user 12/06/24 11:53 e-Cigarette/Vaping Use Never Used 12/06/24 11:53 Thrive Assessment: Date of Thrive Assessment Date Thrive assessed 06/16/24 12/06/24 11:53 Currently or been in a relationship where the following occur: No concerns reported Coding Level of Care Code Est Pt Level 5 (79334) Diagnoses Seen in emergency room Z76.89 Spasmodic cough R05.8 Shortness of breath R06.02 Feeling sick R69 Time Spent (min) 40 Comment Ivpi-tt-xoqs/reviewing emergency room note/imaging/coordination of care Assessment & Plan Assessment & Plan (1) Seen in emergency room: Code(s): Z76.89 - Persons encountering health services in other specified circumstances Category: Medical (2) Spasmodic cough: Code(s): R05.8 - Other specified cough Category: Medical (3) Shortness of breath: Code(s): R06.02 - Shortness of breath Category: Medical (4) Feeling sick: Code(s): R69 - Illness, unspecified Category: Medical Plan Emergency room visit follow-up History of Present Illness The patient is a 59-year-old female presenting with persistent cough and congestion following an emergency room visit. Cough and Congestion: - Presented to the emergency room with a cough and a fever of 101?F lasting for 1 week. - Chest X-ray indicated chronic interstitial lung disease. - Previous diagnosis of pneumonia. - Treated with antibiotics and received IV magnesium and IV steroids in the emergency room. - Discharged with azithromycin, codeine cough medicine, and prednisone 20 mg (40 tablets). - During follow-up, reports persistent cough, feeling congested, and being unable to take deep breaths. - Mild wheezing was noted previously. - Denied going back to work and should remain off work for health recovery. - Additional treatment plans for managing symptoms were discussed. Medical History: - Asthma - Hypertension - Osteoarthritis - Obstructive sleep apnea - Gonorrhea - Coronary artery disease with a history of stenting - History of pneumonia Medications: - Celebrex for osteoarthritis - Pantoprazole for gastroesophageal reflux disease - Atorvastatin for hyperlipidemia - Venlafaxine for depression - Famotidine for gastroesophageal reflux disease - Trazodone for insomnia - Losartan for hypertension - Symbicort for asthma - Nifedipine for hypertension Social History: - Occupation: Employed, but currently off work due to health reasons - Family: ; mentioned to have similar health symptoms Diagnostic Results: - Chest X-ray: Chronic interstitial lung disease - Labs: Unremarkable Problem List - Asthma exacerbation - Chronic interstitial lung disease - Hypertension - Osteoarthritis - Obstructive sleep apnea - Coronary artery disease - Gonorrhea Patient Instructions - Rest at home and hydrate adequately. - Avoid returning to work until cleared, estimated off work until 13 December - Continue prescribed medications, with cough medicine reserved for night use. - Follow prescribed antibiotic course and additional prednisone as advised. -hold trazodone while taking Levaquin - follow-up 1 week Medications: New levofloxacin Do not take trazodone while taking this medication 500 mg PO DAILY 10 tabs 0RF 10 days codeine-guaifenesin 10-100 mg/5 mL 10 mL PO BID PRN 120 mL 0RF allergy symptoms 10 days methylprednisolone (Medrol (Keith)) PO PER PKG DIR 21 ea 0RF 6 days On Hold trazodone Hold Comment: While taking Levaquin 200 mg (2 x 100 mg) PO BEDTIME 90 tabs 0RF
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
== END 2024-12-06 12:27 | disposition home or self-care (01) ==
PROVIDERS: PCP Internal Medicine; Visit Provider Internal Medicine
DX: R05.8 Other specified cough (principal); R06.02 Shortness of breath; R69 Illness, unspecified; Z76.89 Persons encountering health services in other specified circumstances

== ENCOUNTER → 2024-12-06 11:43 | Outpatient (BNVA) | payer OTHER, SELFPAY | PROVIDERS: PCP Internal Medicine; Visit Provider Internal Medicine | DX: R05.3 Chronic cough (principal); R06.02 Shortness of breath; Z76.89 Persons encountering health services in other specified circumstances | CPT/HCPCS: 99212 ==

== ENCOUNTER 2024-12-27 11:43 | Outpatient (AMB) | payer OTHER, SELFPAY ==
--- NOTE | 2024-12-27 11:58 | A.OFFPC_ITS ---
Vital Signs 12/27/24 11:59 Height 5 ft 2 in Weight 223 lb BMI 40.8 BP 136/72 Blood Pressure Location Lt brachial Position Sitting Pulse 70 Pulse Source Pulse Oximeter Pulse Oximetry (%) 97 Oxygen Delivery Method Room Air Intake Visit Reasons: clearance to go back to work-ok per [place] Allergies bee pollen (BEE STINGS) Allergy (Severe, Verified 12/27/24 12:00) ANAPHYLAXIS spider venom (SPIDER BITES) Allergy (Mild, Verified 12/27/24 12:00) SWELLING acetaminophen (Vicodin) Allergy (Unknown, Verified 12/27/24 12:00) nausea and vomiting hydrocodone (Vicodin) Allergy (Unknown, Verified 12/27/24 12:00) nausea and vomiting Medication List - Last Reconciled 12/27/24 by Dee Joseph MD albuterol sulfate 90 mcg/actuation 1 puff inhalation Q6H PRN aspirin 81 mg PO DAILY 90 days atorvastatin 80 mg PO DAILY 90 days budesonide-formoterol 160-4.5 mcg/actuation (Symbicort) 2 puffs inhalation BID 30 days celecoxib (Celebrex) 200 mg PO DAILY PRN 3 months famotidine 20 mg PO DAILY losartan 100 mg PO DAILY nifedipine ER 60 mg PO DAILY 90 days pantoprazole 20 mg PO DAILY sennosides-docusate sodium 8.6-50 mg 1 tab-cap PO BEDTIME PRN trazodone 200 mg (2 x 100 mg) PO BEDTIME venlafaxine ER 37.5 mg PO DAILY Tobacco use date assessed: 10/03/24 Dental Screening Dental Screen Date: 10/03/24 HPI clearance to go back to work-ok per [place] HPI Details History The patient is a 59-year-old female presenting with clogged ears and breathing difficulty. Clogged Ears: - The patient reports her ears have been feeling clogged, particularly the left ear, with crackling sensations. - She denies any pain associated with th e ear condition. - Symptoms are notably worse in the morn ing and seem to improve with movement throughout the day. Breathing Difficulty on Exertion: - The patient has noticed breathing diff iculty upon walking or exertion. - Describes breathing as normal at rest but worsens with physical activity. - She reports the condition has gotten w orse over time, since her visit to emergency room and bronchitis few days ago - A previous chest infection is indicate d in history, with symptoms persisting beyond the expected recovery time. Medications: - Atorvastatin: indicated for hyperlipi demia - Symbicort: Taken two times a day, rela canelo to breathing difficulty - Celebrex: - Famotidine: For GERD - Losartan: For hypertension - Nifedipine: Hypertension - Pantoprazole: For GERD - Trazodone: sleep aid Social History: - The patient is currently employed and working despite ongoing symptoms. Problem List - Chronic breathing difficulty post bron chitis - Ear congestion - Hyperlipidemia - hypertension - lipid disorder - morbid obesity Diagnostic results - Upcoming CT scan appointment on o this month Patient Instructions - Monitor ear symptoms and use prescribe d ear drops, avoiding hearing aids while using drops. - Follow scheduled CT scan on - Keep track of breathing issues and rep ort any exacerbation. - Use refilled trazodone as a sleep aid as previously instructed. - continue other medications Review of Systems General: No fever no chills neurological: No headaches no dizziness ear nose throat: No sore throat cardiovascular: No syncope, no chest pain, no palpitations gastrointestinal: No nausea vomiting or diarrhea endocrine: No polyuria polydipsia no heat intolerance genitourinary: No dysuria skin: No new complaints Physical Exam general: No acute distress HEENT: Left ear inflamed with fluid, no pain with pressure neck: Supple respiratory system: Breathing normal at rest, clear to auscultation cardiovascular: S1-S2 RRR gastrointestinal: No pain extremities: No new findings 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 x3 motor sensory intact skin: Normal turgor ON LICENSE OF [facility] Medical History CAD (coronary artery disease) Environmental allergies Anxiety, generalized Chronic GERD Asthma, moderate Constipation by delayed colonic transit Lipid disorder Chronic vertigo Hypertension, essential Difficulty sleeping Surgical History Stented coronary artery History of shoulder surgery History of tooth extraction History of left oophorectomy Family History Father Myocardial infarction Mother CHF (congestive heart failure) History of back surgery Brother Acute myocardial infarction Sister Acute myocardial infarction Maternal Grandfather Colon cancer Maternal Grandmother Cancer Paternal Grandmother History of heart attack Cervical cancer Paternal Grandfather No problems noted. Maternal Uncle History of heart attack Sister No problems noted. Brother No problems noted. Brother No problems noted. Brother No problems noted. Social History Household Members: Spouse Housing: Apartment Do you presently have visiting nurse or other home services: No Alcohol intake: current Alcohol intake frequency: a few times a week Patient Tobacco Use Status: Former Tobacco user e-Cigarette/Vaping Use: Never Used Advance Directives Date on File: 06/09/24 service: No Current occupational status: employed Current occupation: left handed Gender identity: Female Cognitive needs: No Hearing needs: No Vision needs: No Questionnaire Thrive Questionnaire Date Thrive assessed: 06/16/24 I am a: Patient What is your living situation today?: I have a steady place to live Within the past 12 months, did the food you bought not last and you didn't have the money to get more?: Never true Within the past 12 months, did you worry whether your food would run out before you got money to buy more?: Never true Do you have trouble paying for medicines?: No Do you have trouble getting transportation to medical appointments?: No Do you have trouble paying your heating and electricity bill?: No Do you have trouble taking care of your child, family member or friend?: No Do you have trouble with day-to-day activities such as bathing, preparing meals, shopping, managing finances, etc.?: No Are you currently unemployed and looking for a job?: No Are you interested in more education?: No Please select the resources that you would like help with: None Currently or been in a relationship where the following occur: No concerns reported THRIVE Score: 0 DENA-7 AMB Questionnaire DENA-7 Date DENA - 7 assessed: 07/04/24 Source: Developed by Drs. Rylan Carroll, Amada Callejas, Get Johnston and colleagues, with an educational javier from [employer]. Physical exam (Primary Care) Vital Signs: Last Vital Signs Pulse 70 12/27/24 11:59 BP 136/72 12/27/24 11:59 Pulse Ox 97 12/27/24 11:59 Oxygen Delivery Method Room Air 12/27/24 11:59 BMI result Body Mass Index 40.8 Tobacco/Smoking Status: Tobacco use Status Tobacco use date assessed 10/03/24 12/27/24 12:02 Patient Tobacco Use Status Former Tobacco user 12/27/24 12:02 e-Cigarette/Vaping Use Never Used 12/27/24 12:02 Thrive Assessment: Date of Thrive Assessment Date Thrive assessed 06/16/24 12/27/24 12:02 Currently or been in a relationship where the following occur: No concerns reported Coding Level of Care Code Est Pt Level 4 (12952) Diagnoses Shortness of breath R06.02 Inflammation of left ear canal H60.[address] scan, chest R93.89 Difficulty sleeping G47.9 Moderate persistent asthma without complication J45.40 Asthma persistence: persistent Asthma complication type: uncomplicated Lipid disorder E78.9 Morbid obesity due to excess calories E66.01 Hearing difficulty of both ears H91.93 Laterality: bilateral Chronic GERD K21.9 Hypertension, essential I10 Assessment & Plan Assessment & Plan (1) Shortness of breath: Code(s): R06.02 - Shortness of breath Category: Medical (2) Inflammation of left ear canal: Code(s): H60.92 - Unspecified otitis externa, left ear Category: Medical (3) Abnormal CT scan, chest: Code(s): R93.89 - Abnormal findings on diagnostic imaging of other specified body structures Category: Medical (4) Difficulty sleeping: Code(s): G47.9 - Sleep disorder, unspecified Category: Medical (5) Asthma, moderate: Code(s): J45.909 - Unspecified asthma, uncomplicated Category: Medical Qualifiers: Asthma persistence: persistent Asthma complication type: uncomplicated Qualified Code(s): J45.40 - Moderate persistent asthma, uncomplicated (6) Lipid disorder: Code(s): E78.9 - Disorder of lipoprotein metabolism, unspecified Category: Medical (7) Morbid obesity due to excess calories: Code(s): E66.01 - Morbid (severe) obesity due to excess calories Category: Medical (8) Hearing difficulty: Code(s): H91.90 - Unspecified hearing loss, unspecified ear Category: Medical Qualifiers: Laterality: bilateral Qualified Code(s): H91.93 - Unspecified hearing loss, bilateral (9) Chronic GERD: Code(s): K21.9 - Gastro-esophageal reflux disease without esophagitis Category: Medical (10) Hypertension, essential: Code(s): I10 - Essential (primary) hypertension Category: Medical Plan History The patient is a 59-year-old female presenting with clogged ears and breathing difficulty. Clogged Ears: - The patient reports her ears have been feeling clogged, particularly the left ear, with crackling sensations. - She denies any pain associated with the ear condition. - Symptoms are notably worse in the morning and seem to improve with movement throughout the day. Breathing Difficulty on Exertion: - The patient has noticed breathing difficulty upon walking or exertion. - Describes breathing as normal at rest but worsens with physical activity. - She reports the condition has gotten worse over time, since her visit to emergency room and bronchitis few days ago - A previous chest infection is indicated in history, with symptoms persisting beyond the expected recovery time. Medications: - Atorvastatin: indicated for hyperlipidemia - Symbicort: Taken two times a day, related to breathing difficulty - Celebrex: - Famotidine: For GERD - Losartan: For hypertension - Nifedipine: Hypertension - Pantoprazole: For GERD - Trazodone: sleep aid Social History: - The patient is currently employed and working despite ongoing symptoms. Problem List - Chronic breathing difficulty post bronchitis - Ear congestion - Hyperlipidemia - hypertension - lipid disorder - morbid obesity Diagnostic results - Upcoming CT scan appointment on of this month Patient Instructions - Monitor ear symptoms and use prescribed ear drops, avoiding hearing aids while using drops. - Follow scheduled CT scan on - Keep track of breathing issues and report any exacerbation. - Use refilled trazodone as a sleep aid as previously instructed. - continue other medications Medications: New wnmhejnh-yfeminrbl-PO 3.5-10,000-1 mg/mL-unit/mL-% 4 drps otic (ear) left Q8H 10 mL 0RF 10 days Resumed trazodone 200 mg (2 x 100 mg) PO BEDTIME 90 tabs 0RF
[2024-12-27 11:59] VITALS: BP 136/72; PULSE 70; O2SAT 97; BMI 40.8
--- OUTSIDE RECORDS SUMMARY | 2024-12-27 14:56 | XMS_ITS | Clinical Summary ---
Author Organization [facility] Address [address] [address] Phone Care Team Providers Care Senior Hardware Design Engineer Name Role Phone Pcp, Unknown Primary Care [...] HEPATITIS C SCREENING 1981 HIV ONE-TIME SCREENING (18-65 YEARS) 1981 PAP SMEAR 1984 MAMMOGRAM 2003 COLOGUARD 2008 COLONOSCOPY 2008 COLORECTAL CANCER SCREENING 2008 FIT TEST 2008 FOBT 2008 SIGMOIDOSCOPY 2008 VIRTUAL COLONOSCOPY 2008 ZOSTER VACCINES (1 of 2) 2013 PNEUMOCOCCAL VACCINES (50+ years) (2 of 2 - PCV) 07/12/2018 07/12/2017, 02/06/2012, 04/19/2008 COVID-19 VACCINE (3 - season) 2023 08/16/2020, 07/26/2020 INFLUENZA VACCINE (#1) 2024 , 01/25/2019, 11/17/2018, Additional history exists Adult Td,Tdap Booster 01/13/2028 01/12/2018, 013 RSV VACCINE (1 - 1-dose 75+ series) [...] Insurance ACO ACO ACO ACO ACO ACO ACO ACO Care Teams Senior Hardware Design Engineer Relationship Specialty Start Date End Date Pcp, Unknown PCP - General 04/07/19 Additional Source Comments The information contained in this document represents components of the legal health record. It is not the complete legal health record.[facility]
== END 2024-12-27 13:31 | disposition home or self-care (01) ==
LOC: HO.HMCC 11:44
PROVIDERS: PCP Internal Medicine; Visit Provider Internal Medicine
DX: R06.02 Shortness of breath (principal); H60.92 Unspecified otitis externa, left ear; E66.01 Morbid (severe) obesity due to excess calories; Z68.41 Body mass index [BMI] 40.0-44.9, adult; R93.89 Abnormal findings on diagnostic imaging of other specified body structures; G47.9 Sleep disorder, unspecified; J45.40 Moderate persistent asthma, uncomplicated; E78.9 Disorder of lipoprotein metabolism, unspecified; H91.93 Unspecified hearing loss, bilateral; K21.9 Gastro-esophageal reflux disease without esophagitis; I10 Essential (primary) hypertension

== ENCOUNTER → 2024-12-27 11:43 | Outpatient (BNVA) | payer OTHER, SELFPAY | PROVIDERS: PCP Internal Medicine; Visit Provider Internal Medicine | DX: R06.02 Shortness of breath (principal); H60.92 Unspecified otitis externa, left ear; R93.89 Abnormal findings on diagnostic imaging of other specified body structures; G47.9 Sleep disorder, unspecified; J45.40 Moderate persistent asthma, uncomplicated; E78.9 Disorder of lipoprotein metabolism, unspecified; E66.01 Morbid (severe) obesity due to excess calories; H91.93 Unspecified hearing loss, bilateral; K21.9 Gastro-esophageal reflux disease without esophagitis; I10 Essential (primary) hypertension; Z68.41 Body mass index [BMI] 40.0-44.9, adult | CPT/HCPCS: 99212 ==

== ENCOUNTER 2025-01-16 12:52 | Outpatient (AMB) | payer OTHER, SELFPAY ==
--- NOTE | 2025-01-16 12:59 | MHC.OFFVIS ---
Intake Visit Reasons: Bilateral knee pain Intake Note: Majo is a 59 year old female who presents with bilateral knee pains. She describes her pains as sharp in nature. She has taken Tylenol and Celebrex which gave her mild relief. She has had cortisone injections in the past which gave her fairly good relief. She wishes to hold off on surgery if at all possible. Allergies bee pollen (BEE STINGS) Allergy (Severe, Verified 01/16/25 13:04) ANAPHYLAXIS spider venom (SPIDER BITES) Allergy (Mild, Verified 01/16/25 13:04) SWELLING acetaminophen (Vicodin) Allergy (Unknown, Verified 01/16/25 13:04) nausea and vomiting hydrocodone (Vicodin) Allergy (Unknown, Verified 01/16/25 13:04) nausea and vomiting Medication List - Last Reconciled 01/16/25 by Max Dueñas MD albuterol sulfate 90 mcg/actuation 1 puff inhalation Q6H PRN aspirin 81 mg PO DAILY 90 days atorvastatin 80 mg PO DAILY 90 days budesonide-formoterol 160-4.5 mcg/actuation (Symbicort) 2 puffs inhalation BID 30 days celecoxib (Celebrex) 200 mg PO DAILY PRN 3 months famotidine 20 mg PO DAILY losartan 100 mg PO DAILY bocbaahj-vpiahdvfx-IZ 3.5-10,000-1 mg/mL-unit/mL-% 4 drps otic (ear) left Q8H 10 days nifedipine ER 60 mg PO DAILY 90 days pantoprazole 20 mg PO DAILY sennosides-docusate sodium 8.6-50 mg 1 tab-cap PO BEDTIME PRN trazodone 200 mg (2 x 100 mg) PO BEDTIME venlafaxine ER 37.5 mg PO DAILY PFSH Medical History CAD (coronary artery disease) Environmental allergies Anxiety, generalized Chronic GERD Asthma, moderate Constipation by delayed colonic transit Lipid disorder Chronic vertigo Hypertension, essential Difficulty sleeping Surgical History Stented coronary artery History of shoulder surgery History of tooth extraction History of left oophorectomy Family History Father Myocardial infarction Mother CHF (congestive heart failure) History of back surgery Brother Acute myocardial infarction Sister Acute myocardial infarction Maternal Grandfather Colon cancer Maternal Grandmother Cancer Paternal Grandmother History of heart attack Cervical cancer Paternal Grandfather No problems noted. Maternal Uncle History of heart attack Sister No problems noted. Brother No problems noted. Brother No problems noted. Brother No problems noted. Social History Household Members: Spouse Housing: Apartment Do you presently have visiting nurse or other home services: No Alcohol intake: current Alcohol intake frequency: a few times a week Patient Tobacco Use Status: Former Tobacco user e-Cigarette/Vaping Use: Never Used Advance Directives Date on File: 06/09/24 service: No Current occupational status: employed Current occupation: left handed Gender identity: Female Cognitive needs: No Hearing needs: No Vision needs: No Physical Exam Const Other: Well-nourished well-developed very friendly female awake alert and oriented x3 in no acute distress Extrem Other: Bilateral knee examination shows minimal effusions, palpable crepitus with range of motion, pain with range of motion, no instability Office Procedures AMB Joint Injection/Aspiration Joint Injection/Aspiration Primary Site: left knee Prep: site was prepped using aseptic technique Injected: 40 mg of, DepoMedrol and 1% plain lidocaine Procedure: The patient tolerated the procedure well Coding 33415 - Large joint Procedure code (CPT) selection complete AMB Joint Injection/Aspiration Joint Injection/Aspiration Primary Site: right knee Prep: site was prepped using aseptic technique Injected: 40 mg of, DepoMedrol and 1% plain lidocaine Procedure: The patient tolerated the procedure well Coding 49026 - Large joint Procedure code (CPT) selection complete Results Reviewed Results Reviewed: X-rays of the patient's bilateral knees taken previously show joint space narrowing, subchondral sclerosis, no acute bony abnormalities Assessment & Plan Assessment & Plan (1) Osteoarthritis of left knee: Code(s): M17.12 - Unilateral primary osteoarthritis, left knee Category: Medical (2) Osteoarthritis of right knee: Code(s): M17.11 - Unilateral primary osteoarthritis, right knee Category: Medical (3) Pain in both knees: Code(s): M25.561 - Pain in right knee; M25.562 - Pain in left knee Plan Ms. Linden presents with bilateral knee pains due to degenerative joint disease. The risks and benefits of bilateral knee cortisone injections were discussed at length with the patient. The patient wished to proceed. She tolerated the injections well. She will continue with her home exercise program. She will contact me prior to her follow-up appointment in 3 months should any questions or concerns arise. Feel free to call at any time should questions regarding her orthopedic management arise. I spent 21 minutes in reviewing the patient's records and imaging studies, seeing the patient and documenting in the medical record. Orders: Orders AMB Joint Injection/Aspiration Today M17.12 - Unilateral primary osteoarthritis, left knee AMB Joint Injection/Aspiration Today M17.11 - Unilateral primary osteoarthritis, right knee Medications: Refilled celecoxib (Celebrex) 200 mg PO DAILY PRN 90 caps 3RF pain 3 months Coding Level of Care Code Est Pt Level 3 (69050) Complex EM visit Add On G2211 Diagnoses Osteoarthritis of left knee M17.12 Osteoarthritis of right knee M17.11 Pain in both knees M25.561; M25.562 CPT Codes Coding - 42677 Large joint: 71760 - Large joint ([id number]) Coding - 93907 Large joint: 55433 - Large joint ([id number])
--- OUTSIDE RECORDS SUMMARY | 2025-01-16 14:01 | XMS_ITS | Clinical Summary ---
Author Organization [facility] Address [address] [address] Phone Care Team Providers Care Arboreal Scientist Name Role Phone Pcp, Unknown Primary Care [...] 2 - PCV) 07/12/2018 07/12/2017, 02/06/2012, 04/19/2008 INFLUENZA VACCINE (#1) 2024 , 01/25/2019, 11/17/2018, Additional history exists COVID-19 VACCINE (3 - season) 2024 08/16/2020, 07/26/2020 Adult Td,Tdap Booster 01/13/2028 01/12/2018, 013 RSV [...] topic Medical Devices [place] [address] ACO ACO ACO ACO ACO ACO ACO Care Teams Arboreal Scientist Relationship Specialty Start Date End Date Pcp, Unknown PCP - General 04/07/19 Additional Source Comments The information contained in this document represents components of the legal health record. It is not the complete legal health record.[facility]
== END 2025-01-16 13:39 | disposition home or self-care (01) ==
LOC: HO.HOS 12:53
PROVIDERS: PCP Internal Medicine; Visit Provider Orthopaedic Surgery
DX: M17.0 Bilateral primary osteoarthritis of knee (principal); M25.561 Pain in right knee; M25.562 Pain in left knee
CPT/HCPCS: 20610; 99213

== ENCOUNTER → 2025-01-16 12:52 | Outpatient (BNVA) | payer OTHER, SELFPAY | PROVIDERS: PCP Internal Medicine; Visit Provider Orthopaedic Surgery | DX: M17.0 Bilateral primary osteoarthritis of knee (principal); M25.561 Pain in right knee; M25.562 Pain in left knee | CPT/HCPCS: 20610; 99212; J1010; J2003 ==